=== PATIENT | female | born 1960 | race Caucasian/White ===

== ENCOUNTER 2020-09-07 11:11 | Outpatient (CLI) | payer BC, SELFPAY ==
--- NOTE | ~2020-09-07 | XR_ITS ---
XR hip LT min 2V 09/07/2020 11:36 Indication: Left hip pain Procedure: 3 views left hip Comparison: No prior studies for comparison. Findings: There is moderate osteoarthritis of the left hip. No fracture or traumatic malalignment. No significant soft tissue abnormality. No foreign bodies. Pelvic structures are unremarkable. Impression: 1: Moderate osteoarthritis of the left hip. Reviewed, dictated and finalized at location B. [employer]INE[employer] Impression: 1: Moderate osteoarthritis of the left hip.
[2020-09-07 11:43] LABS: Basophils Absolute Auto 0.1 K/mm3 (0.0-0.1); Basophils Percent Auto 1.3 % (0.2-1.2); Eosinophils Absolute Auto 0.2 K/mm3 (0-0.3); Eosinophils Percent Auto 3.9 % (0-4.4); Hematocrit 45.4 % (37.0-47.0); Immature Granulocyte Absolute 0.01 K/mm3 (0.00-0.031); Immature Granulocyte Percent A 0.2 % (0-0.5); Lymphocytes Percent Auto 52.2 % (18.3-44.2); Mean Corpuscular Hemoglobin 29.9 pg (26-34); Mean Corpuscular Volume 90.6 fl (80-100); Mean Platelet Volume 10.2 fl (7.4-10.4); Monocytes Absolute Auto 0.3 K/mm3 (0.1-0.6); Monocytes Percent Auto 5.4 % (2.6-8.5); Platelet Count Result 237 k/mm3 (150-375); Red Blood Count 5.01 M/mm3 (4.2-5.4); Red Cell Distribution Width 11.9 % (11.5-14.5); White Blood Count 5.4 K/mm3 (4.5-10.0)
[2020-09-07 11:55] LABS: Alanine Aminotransferase 18 U/L (4-35); Albumin Level 4.2 g/dL (3.5-5.1); Alkaline Phosphatase 92 U/L (38-126); Anion Gap 8 mmol/L (8-16); Aspartate Amino Transferase 22 U/L (14-36); Bilirubin,Total 0.8 mg/dL (0.2-1.3); Blood Urea Nitrogen 11 mg/dL (7-17); Calcium 9.7 mg/dL (8.4-10.2); Carbon Dioxide 30 mmol/L (22-30); Chloride 100 mmol/L (98-107); Cholesterol 206 mg/dL (0-200); Estimated Glomerular Filt Rate > 60; Glucose 275 mg/dL (65-105); HDL Direct 65 mg/dL; Potassium 3.9 mmol/L (3.4-5.0); Sodium 138 mmol/L (137-145); Triglycerides 195 mg/dL (<150)
[2020-09-07 12:06] LABS: LDL Cholesterol Direct 117 mg/dL
[2020-09-07 12:34] LABS: Vitamin D 25 Hydroxy 17.7 ng/mL
[2020-09-07 13:39] LABS: Hemoglobin A1C 10.6 % (<5.7)
== END 2020-09-07 11:12 | disposition home or self-care (01) ==
PROVIDERS: PCP Internal Medicine; Visit Provider Clinical Nurse Specialist
DX: Z13.220 Encounter for screening for lipoid disorders (principal); Z13.228 Encounter for screening for other metabolic disorders; R53.83 Other fatigue; E55.9 Vitamin D deficiency, unspecified; M16.12 Unilateral primary osteoarthritis, left hip; Z51.81 Encounter for therapeutic drug level monitoring; Z79.899 Other long term (current) drug therapy
CPT/HCPCS: 36415; 73502; 80053; 80061; 82306; 83036; 84443; 85025

== ENCOUNTER 2020-09-27 12:58 | Outpatient (CLI) | payer BC, SELFPAY ==
--- NOTE | ~2020-09-27 | XR_ITS ---
EXAMINATION: XR lg joint inject/asp w image DATE: 09/27/2020 13:46 INDICATION: Left hip arthritis. TECHNIQUE: A time-out was performed to verify the patient's name, date of , and procedure to b e performed. The procedure including the risks, benefits, and alternatives was discussed with the pat ient. Risks discussed included bleeding and infection. The patient understood the risks and agreed to proceed. The skin overlying the left hip joint was prepped and draped in usual sterile fashion. An esthetic was administered with 1% lidocaine subcutaneously. A 22 G needle was advanced under fluoros copic guidance into the joint. Injection of 1 mL of Omnipaque 240 confirmed intra-articular position of the needle. Subsequently, injectate consisting of 2 mL 0.5% bupivacaine and 1 mL 80 mg/mL Depo-M edrol was instilled. The needle was removed and the entry site was cleaned and dressed. There were no immediate complications. Fluoroscopy exposure time was 0.1 minutes. The total number of images was 2. FINDINGS: Real-time fluoroscopy demonstrates the needle in the left hip joint. Patient's pain prior t o procedure:02/02. Patient's pain following the procedure: 11/03. IMPRESSION: 1. Fluoroscopy guided left hip joint injection of local anesthetic and steroid with decrease in the p atient's presenting pain. Reviewed, dictated and finalized at location A. [employer]CTION SUPERINTENDENT IMPRESSION: 1. Fluoroscopy guided left hip joint injection of local anesthetic and steroid with decrease in the patient's presenting pain.
== END 2020-09-27 12:59 | disposition home or self-care (01) ==
PROVIDERS: PCP Internal Medicine; Visit Provider Nurse Practitioner Family
DX: M16.12 Unilateral primary osteoarthritis, left hip (principal)
CPT/HCPCS: 20610; 77002; J1040; Q9966

== ENCOUNTER 2020-11-07 23:13 | Emergency (ER) | payer BC, SELFPAY ==
--- NOTE | ~2020-11-07 | XR_ITS ---
EXAMINATION: XR knee RT min 4V EXAM DATE: 11/08/2020 01:10 INDICATION: No known recent injury provided at this time. Pain of the right knee, symptoms 3 days. TECHNIQUE: Right knee frontal, crosstable lateral, orthogonal oblique projections for interpretation . There is no prior study for comparison. FINDINGS: No evidence osteochondral defect or joint body in the right knee joint. There are no acut e fractures or dislocations identified. There is no subcutaneous gas. There is small joint effusion . There are no radiopaque foreign bodies. There is mild to moderate primary osteoarthritis. IMPRESSION: 1. Mild to moderate osteoarthritis. 2. Small joint effusion. Reviewed, dictated and finalized at location A.
[2020-11-08 00:05] VITALS: BP 147/89; PULSE 97; RESP 18; TEMP 36.6; O2SAT 99
--- NOTE | 2020-11-08 00:11 | PC.NURSE ---
Pt presents to ED with complaint right knee pain. Pt states she was sleeping on couch and woke to go to bed and was unable to bear weight. Pt states she is due for a left hip replacement and is concerned that maybe that has something to do with her knee. Pt rates pain 10/10 and states she has been taking tylenol Q6 with no relief. Pt states pain increases with ambulation and attempts to bear weight. Pt denies any fall or injury prior to pain onset. Pt noted to be alert and oriented x4. Resting on cart in its lowest position with call button and personal items within reach.
--- NOTE | 2020-11-08 00:25 | PC.NURSE ---
Pt to and from radiology via cart. Moderate swelling noted to right knee. Pt complains of difficulty bending at knee. Extremity elevated on pillow and pt provided ice pack. Call button and personal items within reach. Pt advised to press for assistance.
--- NOTE | 2020-11-08 01:04 | ED.LOWEXIN ---
HPI - Extremity Injury (Lower) General Chief Complaint: Extremity Injury, Lower Stated Complaint: R Knee Pain Time Seen by Provider: 11/08/20 00:59 Source: patient Mode of arrival: ambulatory Limitations: no limitations History of Present Illness HPI Narrative: Patient is a 60-year-old female who presents complaining of right knee pain. Patient reports working in garden on Thursday and shopping on Thursday and the pain starting Thursday afternoon. Patient denies known injury, however, she reports she could have injured during either activity. She reports a history of right hip pain that she is planning surgery for. She denies problems with right knee in the past. Patient reports taking [id number] medications with limited pain relief. MD complaint: knee injury Related Data Home Medications Medication Instructions Recorded Confirmed cider tablet PO 09/04/20 09/13/20 [id number]-Ju-[id number]-tea 500 mg-100 mcg-300 mg-60 mg tab multivitamin with minerals 1 tablet PO DAILY 09/04/20 09/13/20 Allergies Allergy/AdvReac Type Severity Reaction Status Date / Time latex Allergy Unknown Unknown Verified 11/08/20 00:07 fentanyl Allergy Unknown Verified 11/08/20 00:07 Penicillins Allergy Unknown Verified 11/08/20 00:07 Review of Systems Review of Systems: Narrative: CONSTITUTIONAL: Denies fever, chills, or sweats. EYES: Denies visual changes, redness, or discharge. ENT: Denies rhinorrhea, congestion, sore throat, or otalgia. CARDIOVASCULAR: Denies chest pain, palpitations, or edema. RESPIRATORY: Denies cough or dyspnea. GASTROINTESTINAL: Denies abdominal pain, nausea, vomiting, or diarrhea. GENITOURINARY: Denies dysuria or hematuria. SKIN: Denies rash or itching. MUSCULOSKELETAL: Right knee pain NEUROLOGIC: Denies headache, numbness, dizziness, or weakness. PSYCHIATRIC: Denies anxiety or depression. [facility] Past Medical History Medical History Allergies Degenerative joint disease (DJD) of hip Elevated blood pressure reading Encounter for screening mammogram for breast cancer Essential (primary) hypertension Fatigue Screening for lipoid disorders Screening for metabolic disorder Screening for osteoporosis Type 2 diabetes mellitus Vitamin D deficiency Surgical History Surgical History History of arthroscopy of left knee History of section complicating Family History Family History Father Cancer Diabetes mellitus Hypertension Mother Diabetes mellitus Hypertension Depression Anxiety Sibling Diabetes mellitus Hypertension Social History Social History Smoking status: Never smoker Alcohol intake: never Substance use: never Substance use type: does not use Gender identity (if verbalized by the patient): Female Comments At the time of signature, I have reviewed and agree with nursing past medical, surgical, social, and family history unless otherwise noted. Please see nursing chart for further information. There is no relevant family history pertinent to the presenting complaint. Exam Narrative: Exam Narrative: GENERAL: Well-appearing, well-nourished, and in no acute distress. HEAD: Normocephalic, atraumatic. EYES: EOMI. No redness or drainage. Conjunctiva are normal. ENT: Mucous membranes pink and moist. CHEST: No respiratory distress. Clear to auscultation. HEART: Regular rate and rhythm. MUSCULOSKELETAL: Right knee tenderness with palpation, edema, erythema and warmth noted. Limited range of motion EXTREMITIES: Normal range of motion. No edema. SKIN: Warm, dry, no rash. NEURO: No focal deficits. Alert and oriented x3. Gait steady. PSYCH: Normal affect. No signs of depression or anxiety. Course Vital Signs Vital signs: Vital Signs
--- NOTE | 2020-11-08 01:30 | PC.NURSE ---
Pt resting on cart with no complaints or concerns voiced. Pt advised to press call button for assistance.
[2020-11-08] MEDS: KETOROLAC 30 MG/ML VIAL (*BKC) IM (01:44)
[2020-11-08 01:47] VITALS: BP 153/87; PULSE 87; RESP 18; TEMP 36.8; O2SAT 99
--- NOTE | 2020-11-08 01:50 | PC.NURSE ---
Knee immobilizer applied to right knee. Pt advised that she should rest, ice and elevate extremity and wear immobilizer while at rest.
== END 2020-11-08 01:48 | disposition home or self-care (01) ==
PROVIDERS: Emergency Provider Nurse Practitioner; PCP Internal Medicine
DX: M25.561 Pain in right knee (principal); M16.10 Unilateral primary osteoarthritis, unspecified hip; I10 Essential (primary) hypertension; E11.9 Type 2 diabetes mellitus without complications; E55.9 Vitamin D deficiency, unspecified; M17.11 Unilateral primary osteoarthritis, right knee
CPT/HCPCS: 73564; 96372; 99283; J1885

== ENCOUNTER 2020-11-12 18:46 | Emergency (ER) | payer BC, SELFPAY ==
[2020-11-12 19:01] VITALS: BP 150/90; PULSE 105; RESP 12; TEMP 37.8; O2SAT 97
--- NOTE | 2020-11-12 19:19 | ED.EXTPRO ---
HPI - Extremity Problem General Chief complaint: Extremity Problem,Nontraumatic Stated complaint: Right Leg Pain Time Seen by Provider: 11/12/20 19:10 Source: patient and RN notes reviewed Mode of arrival: ambulatory Limitations: no limitations History of Present Illness HPI Narrative: 60-year-old female presents with concern for right leg pain, swelling. Reports 4-day history of pain that started with swelling and pain in the knee, behind the knee. Reports the pain and swelling has progressed down the lower leg, ankle, foot. Reports she has been elevating, using ice, ibuprofen with no relief. Reports she was prescribed a knee immobilizer in the emergency room which she has been unable to use due to the generalized swelling. MD Complaint: extremity swelling Related Data Home Medications Medication Instructions Recorded Confirmed dulaglutide [Trulicity] 1 mg SUBCUT WEEKLY 11/12/20 11/12/20 lisinopril 1 mg PO DAILY 11/12/20 11/12/20 metformin 1 mg PO BID 11/12/20 11/12/20 Allergies Allergy/AdvReac Type Severity Reaction Status Date / Time latex Allergy Unknown Swelling Verified 11/12/20 19:22 fentanyl Allergy Other Verified 11/12/20 19:22 Penicillins Allergy Rash Verified 11/12/20 19:22 Review of Systems Review of Systems: Narrative: CONSTITUTIONAL: Denies malaise, chills, sweats, or fever. CARDIOVASCULAR: Denies chest pain, palpitations. Reports right lower extremity edema. RESPIRATORY: Denies cough or dyspnea. SKIN: Denies abrasions, lacerations MUSCULOSKELETAL: Reports right lower extremity edema and pain NEUROLOGIC: Denies numbness, weakness All systems reviewed & are unremarkable except as noted in HPI and below PMFSH Past Medical History Medical History Allergies Degenerative joint disease (DJD) of hip Elevated blood pressure reading Encounter for screening mammogram for breast cancer Essential (primary) hypertension Fatigue Screening for lipoid disorders Screening for metabolic disorder Screening for osteoporosis Type 2 diabetes mellitus Vitamin D deficiency Surgical History Surgical History History of arthroscopy of left knee History of section complicating Family History Family History Father Cancer Diabetes mellitus Hypertension Mother Diabetes mellitus Hypertension Depression Anxiety Sibling Diabetes mellitus Hypertension Social History Social History Smoking status: Never smoker Alcohol intake: never Substance use: never Substance use type: does not use Gender identity (if verbalized by the patient): Female Comments At time of signature, agree with nursing past medical, surgical, social and family history. There is no relevant family history pertinent to the presenting complaint Exam Narrative: Exam Narrative: GENERAL: Well-appearing, well-nourished, and in no acute distress. HEAD: Normocephalic EYES: PERRLA, conjunctivae clear ENT: Nares clear. Mucous membranes moist. NECK: Supple. CHEST: No respiratory distress. Speaks in full sentences. HEART: Regular rate and rhythm. No murmur heard. Normal left lower extremity peripheral pulse, diminished right lower extremity pedal pulse EXTREMITIES: Right lower extremity has decreased range of motion, 1+ pitting edema from the knee to the foot, excluding the toes, right knee measurement 39.5 cm, left knee measurement 35 cm, right calf measurement 37.5 cm, left calf measurement 34 cm. Normal sensation. SKIN: Warm, dry, no rash. NEURO: Alert and oriented x3. PSYCH: Normal mood and affect Course Course Emergency Course: Patient is aware of, understands and agrees to be seen in the emergency department. Patient agrees to proceed directly to the emergency department. Portions of this
== END 2020-11-12 19:45 | disposition short-term general hospital (02) ==
PROVIDERS: Emergency Provider Nurse Practitioner; PCP Internal Medicine
DX: R60.0 Localized edema (principal); M16.10 Unilateral primary osteoarthritis, unspecified hip; I10 Essential (primary) hypertension; E11.9 Type 2 diabetes mellitus without complications
CPT/HCPCS: 99212; G0463

== ENCOUNTER 2020-12-19 14:33 | Outpatient (CLI) | payer BC, SELFPAY ==
[2020-12-19 15:31] LABS: Anion Gap 6 mmol/L (8-16); Blood Urea Nitrogen 13 mg/dL (7-17); Carbon Dioxide 31 mmol/L (22-30); Chloride 104 mmol/L (98-107); Estimated Glomerular Filt Rate > 60; Glucose 155 mg/dL (65-105); Sodium 141 mmol/L (137-145)
[2020-12-19 16:44] LABS: Microalbumin Urine Random 23.6 mg/L (0-16.7)
[2020-12-19 16:45] LABS: Creatinine Urine 73.7 mg/dL
== END 2020-12-19 14:34 | disposition home or self-care (01) ==
PROVIDERS: PCP Internal Medicine; Visit Provider Clinical Nurse Specialist
DX: E11.69 Type 2 diabetes mellitus with other specified complication (principal)
CPT/HCPCS: 36415; 80048; 82043; 83036

== ENCOUNTER 2021-03-19 10:41 | Outpatient (CLI) | payer BC, SELFPAY ==
[2021-03-19 11:44] LABS: Vitamin D 25 Hydroxy 42.8 ng/mL
[2021-03-19 12:13] LABS: Hemoglobin A1C 6.9 % (<5.7)
== END 2021-03-19 10:42 | disposition home or self-care (01) ==
PROVIDERS: PCP Internal Medicine; Visit Provider Clinical Nurse Specialist
DX: E55.9 Vitamin D deficiency, unspecified (principal); E11.9 Type 2 diabetes mellitus without complications
CPT/HCPCS: 36415; 82306; 83036

== ENCOUNTER 2021-05-24 07:48 | Outpatient (CLI) | payer BC, SELFPAY ==
[2021-05-24 09:33] LABS: Basophils Absolute Auto 0.1 K/mm3 (0.0-0.1); Basophils Percent Auto 1.7 % (0.2-1.2); Eosinophils Absolute Auto 0.2 K/mm3 (0-0.3); Eosinophils Percent Auto 4.7 % (0-4.4); Hematocrit 39.6 % (37.0-47.0); Immature Granulocyte Absolute 0.01 K/mm3 (0.00-0.031); Immature Granulocyte Percent A 0.2 % (0-0.5); Lymphocytes Absolute Auto 1.76 K/mm3 (0.9-3.2); Lymphocytes Percent Auto 41.7 % (18.3-44.2); Mean Corpuscular HGB Conc 32.8 g/dl (32-36); Mean Corpuscular Hemoglobin 30.7 pg (26-34); Mean Corpuscular Volume 93.4 fl (80-100); Monocytes Absolute Auto 0.2 K/mm3 (0.1-0.6); Monocytes Percent Auto 5.5 % (2.6-8.5); Neutrophils Percent Auto 46.2 % (45.5-73.1); Platelet Count Result 230 k/mm3 (150-375); Red Blood Count 4.24 M/mm3 (4.2-5.4); Red Cell Distribution Width 12.9 % (11.5-14.5); White Blood Count 4.2 K/mm3 (4.5-10.0)
[2021-05-24 09:40] LABS: Urine Cotinine NEGATIVE
[2021-05-24 09:42] LABS: Add Urine Microscopic? YES; Appearance Urine Cloudy (Clear); Bilirubin Urine Negative (Negative); Color Urine Yellow (Yellow); Glucose Urine UA 3+ mg/dL (Negative); Ketones Urine Negative (Negative); Leukocyte Esterase Ur 2+ LEU/UL (Negative); Mucus Urine Rare /lpf; Nitrate Urine Negative (Negative); Protein Urine Negative (Negative); Specific Grav Ur 1.023 (1.001-1.035); Squamous Epithelial Cell Urine Occasional /hpf (Few); Urobilinogen Urine Negative mg/dL (<2.0)
[2021-05-24 09:44] LABS: Albumin Level 4.4 g/dL (3.5-5.1); Anion Gap 8 mmol/L (8-16); Blood Urea Nitrogen 18 mg/dL (7-17); Calcium 10.1 mg/dL (8.4-10.2); Carbon Dioxide 28 mmol/L (22-30); Chloride 101 mmol/L (98-107); Estimated Glomerular Filt Rate > 60; Glucose 204 mg/dL (65-110); Potassium 4.4 mmol/L (3.4-5.0); Sodium 137 mmol/L (137-145)
[2021-05-24 09:45] LABS: INR 0.8; Partial Thromboplastin Time 24.8 SECONDS (22.3-36.8); Prothrombin Time 11.5 Seconds (11.1-14.7)
[2021-05-24 10:44] LABS: Blood Urine Negative (Negative)
== END 2021-05-24 07:49 | disposition home or self-care (01) ==
LOC: ANHSURGERY 07:53
PROVIDERS: PCP Internal Medicine; Visit Provider Orthopaedic Surgery
DX: Z01.818 Encounter for other preprocedural examination (principal); M16.12 Unilateral primary osteoarthritis, left hip
CPT/HCPCS: 80048; 80307; 81001; 82040; 85025; 85610; 85730; 86850; 86900; 86901; 87077; 87081; 87086; 87186

== ENCOUNTER → 2021-06-01 00:18 | Outpatient (CLI) | payer BC, SELFPAY ==
[2021-06-01 17:39] LABS: SARS-CoV-2 RNA PCR Negative
== END ==
PROVIDERS: PCP Internal Medicine; Visit Provider Orthopaedic Surgery
DX: Z01.812 Encounter for preprocedural laboratory examination (principal); Z20.822 Contact with and (suspected) exposure to COVID-19
CPT/HCPCS: C9803; U0003; U0005

== ENCOUNTER 2021-06-05 14:50 | Observation (INO) | payer BC, SELFPAY ==
[2021-05-24 08:15] VITALS: BP 198/90; PULSE 84; RESP 18; TEMP 36.9; O2SAT 97; BMI 30.1
--- NOTE | 2021-06-03 13:49 | WPDANESEPPF ---
Anes - Initial Pre Proc Eval Procedure: Operation Date: 06/04/21 08:30 Proposed Procedures p Left Total Hip Arthroplasty - Tulio Andres MD Date/Time: 06/03/21 13:49 Surgeon: Tulio Andres MD Pre Op Diagnosis: Lt Hip DJD Patient Data Age: 61 Gender: F Height: 1.52 m Weight: 70 kg Last Vital Signs Temp 36.9 C 05/24/21 08:15 Pulse 84 05/24/21 08:15 Resp 18 05/24/21 08:15 BP 198/90 H 05/24/21 08:15 Pulse Ox 97 05/24/21 08:15 Allergies Allergy/AdvReac Type Severity Reaction Status Date / Time latex Allergy Intermediate REDNESS, Verified 06/04/21 07:11 RASH Penicillins AdvReac Intermediate DECREASED Verified 06/04/21 07:11 HEART RATE fentanyl AdvReac Mild DIZZINESS, Verified 06/04/21 07:11 HEADACHE Home Medications Medication Instructions Recorded Confirmed Type metformin 1,000 mg tablet 1,000 mg PO BID #90 tablet 03/25/21 06/04/21 Rx ibuprofen [Advil] 200 mg PO BID PRN 05/24/21 06/04/21 History levofloxacin 500 mg tablet 500 mg PO DAILY #10 tablet 05/27/21 06/04/21 Rx lisinopril 10 mg tablet 10 mg PO DAILY #90 tablet 06/03/21 06/04/21 Rx Patient hx anesthesia problems: none Family hx anesthesia problems: none Results Review: All pre-operative results and documents have been reviewed as part of the pre-operative evaluation. [facility] Past Medical History Medical History (Updated 06/03/21 @ 13:50 by Pino Goins MD) Allergies Degenerative joint disease (DJD) of hip Degenerative joint disease of left hip Elevated blood pressure reading Encounter for screening mammogram for breast cancer Essential (primary) hypertension Fatigue Nausea Obesity Osteoarthritis of hip Right knee DJD Screening for lipoid disorders Screening for metabolic disorder Screening for osteoporosis Type 2 diabetes mellitus Vitamin D deficiency Surgical History Surgical History History of arthroscopy of left knee History of section complicating Family History Family History Father Cancer Diabetes mellitus Hypertension Mother Diabetes mellitus Hypertension Depression Anxiety Sibling Diabetes mellitus Hypertension Social History Social History Alcohol intake: never Substance use: never Substance use type: does not use Living arrangements: with family Additional living arrangements comments: [facility] Gender identity (if verbalized by the patient): Female Spiritual care concerns: No Anes - Eval Final PreProcedure Day of Procedure 06/03/21 13:49 Patient weight: overweight Heart: regular rate and rhythm Lungs: clear to auscultation and normal air movement Airway: Mallampati scale class II Neurological: alert and oriented Last oral intake: >/= 8 hours ASA classification: III Emergent: no Anesthetic plan: proceed Anesthesia type and monitoring: general LMA and ETT Results Review: All pre-operative results and documents have been reviewed as part of the pre-operative evaluation. Informed Consent: The patient's anesthetic plan and its attendant risks and benefits were discussed with the patient/family/POA. Questions were solicited and answers provided to the satisfaction of the patient/family/POA.
[2021-06-04] VITALS (15 sets, daily range): BP systolic 99–180; BP diastolic 51–86; PULSE 60–115; RESP 12–20; TEMP 36.1–36.9; O2SAT 98–100
[2021-06-04] MEDS: ACETAMINOPHEN 500 MG TABLET 1000 MG PO (07:18)
[2021-06-04] MEDS: LACTATED RINGERS 1,000 ML 30 ML IV CONT ×2 (07:31→11:36)
[2021-06-04 07:37] LABS: Glucose Point of Care 148 mg/dl (65-105)
[2021-06-04] MEDS: TRANEXAMIC ACID 1,000MG/ISO100 1,000 MG/100 ML BAG 200 MG IVPB (08:13)
--- NOTE | 2021-06-04 08:25 | WPDHPUPDATE1 ---
History and Physical Update Update Date/Time: 06/04/21 08:25 History and Physical has been reviewed, including an updated exam of the patient. There are NO changes in the patient's condition. Risks, benefits, and alternatives have been discussed and questions answered. Patient agrees to proceed with procedure.
[2021-06-04] MEDS: ceFAZolin 2 GM/D5W 50 ML 2 GM/50 ML BAG IVPB ×2 (08:35→16:40)
[2021-06-04] MEDS: TRANEXAMIC ACID 1,000 MG/10 ML AMPUL 1000 MG IV PUSH (10:40)
[2021-06-04 11:57] LABS: Glucose Point of Care 133 mg/dl (65-105)
--- NOTE | 2021-06-04 12:19 | W.PM.PROC2 ---
Procedure Note - Detailed Date of Procedure 06/04/21 Pre-op Diagnosis Lt Hip DJD Post-op Diagnosis same Procedure Performed L BLAIR Surgeon Tulio Andres MD Anesthesia general Description of Procedure THE PATIENT WAS TAKEN TO THE OPERATING ROOM IN STABLE CONDITION AND WAS PLACED IN THE LATERAL DECUBITUS AND THE LEFT LOWER EXTREMITY WAS PREPPED AND DRAPED IN THE STERILE FASHION. INCISION WAS MADE IN THE POSTERIOR LATERAL SIDE OF THE HIP, DOWN TO THE FASCIA LAYER. THE FASCIA WAS INCISED. THE HIP WAS EXPOSED. THE SHORT EXTERNAL ROTATORS WERE EXPOSED. THE SCIATIC NERVE WAS IDENTIFIED. INCISION WAS MADE THROUGH THE SHORT EXTERNAL ROTATORS AND THE CAPSULE OF THE HIP JOINT. THE HIP WAS DISLOCATED. AN OSTEOTOMY WAS MADE TO THE FEMORAL NECK ABOUT 1 CM PROXIMAL TO THE LESSER TROCHANTER. THE ACETABULUM WAS EXPOSED. THERE WAS SEVERE DJD SEEN. BEGINNING WITH A 44 REAMER THE ACETABULUM WAS REAMED TO 47 MM. A 47 MM TRIAL WAS PLACED IN 35 DEG OF ABDUCTION AND ANTEVERSION WAS IN ALIGNMENT WITH THE TRANS ACETABULAR LIGAMENT. THE FIT WAS EXCELLENT. THE TRIAL WAS REMOVED. A 48 MM BIOMET G7 COMPONENT WAS THEN TAPPED IN TO PLACE IN 35 DEG OF ABDUCTION AND ANTEVERSION IN ALIGNMENT WITH THE TRANSVERSE ACETABULAR LIGAMENT. THE FIT WAS EXCELLENT. THE ACETABULAR LINER WAS PLACED AND CHECKED FOR STABILITY. NEXT THE FEMUR WAS PREPARED WITH INITIAL CANAL FINDER THEN SEQUENTIAL BROACHING WITH A TAPERLOC HIP SYSTEM, UNTIL A 5 BROACH FIT WELL IN 15 OF ANTEVERSION. A -3 STANDARD OFFSET NECK WITH 32 MM HEAD TRIAL WAS PLACED. THE SHUCK TEST WAS EXCELLENT AND THE STABILITY IN FLEXION AND ROTATION WAS EXCELLENT. LEG LENGTHS WERE GROSSLY EQUAL. TRIALS WERE REMOVED. A BIOMET TAPERLOC 5 STEM WAS PLACED WITH A STANDARD OFFSET NECK THE FIT WAS EXCELLENT IN 15 DEG OF ANTEVERSION. A -3 CERAMIC 32 MM FEMORAL CERAMIC HEAD WAS PLACED. THE HIP WAS TRIALED AND THE STABILITY WAS EXCELLENT WERE THE LEG LENGTHS AND THE SHUCK TEST. THE WOUND WAS IRRIGATED WITH STERILE BETADINE AND WATER FOR 3 MIN. THEN WASHED AGAIN. THE CAPSULE AND THE EXTERNAL ROTATORS WERE APPROXIMATED WITH NUMBER 1 VICRYL. THE FASCIA WITH No 2 QUIL AND THE SUB CUTANEOUS LAYER WITH 2-0 ABSORBABLE SUTURE WITH A RUNNING 3-0 SUBCUTICULAR LAYER WELL. DERMABOND WAS PLACED AND STERILE DRESSING WAS APPLIED. PATIENT WAS PLACED BACK ON TO THE SUPINE POSITION AND WAS EXTUBATED Estimated Blood Loss 400 Urine Output -475.0 Complications No immediate complications Condition stable Disposition PACU
--- NOTE | 2021-06-04 12:57 | SUR.PHASEI ---
REPORT TO MECCA ZAPATA.
--- NOTE | 2021-06-04 14:16 | PC.NURSE ---
This patient, Sarahi Enciso, was admitted to 2 Medical Room 259-01. Patient/family oriented to hospital policies and general routines including ID bracelet, bed and alarms, visiting hours, pain management, procedures, bathroom and other care routines, personal items, smoking policy, room service/diet, and visiting hours. Information on how to activate the Rapid Response Team has been discussed. Patient/Family are encouraged to report perceived risks to care and to ask questions if they do not understand what they are told or what they should do.
[2021-06-04] MEDS: ACETAMINOPHEN 325 MG TABLET 650 MG PO (14:30)
--- NOTE | 2021-06-04 14:40 | PCOTNOTE ---
Attempted OT evaluation, per RN hold due to spinal, unable to feel LE at this time. Will attempt in AM.
--- NOTE | 2021-06-04 14:43 | PCPTNOTE ---
Attempted PT evaluation, per RN hold due to spinal, unable to feel LE at this time. Will attempt in AM.
[2021-06-04 16:36] LABS: Glucose Point of Care 133 mg/dl (65-105)
[2021-06-04] MEDS: DOCUSATE SODIUM 100 MG CAPSULE PO (16:39)
[2021-06-04] MEDS: metFORMIN HCL 500 MG TABLET 1000 MG PO (16:39)
[2021-06-04] MEDS: HYDROcodone/acetaminophen (*CRX) 7.5-325 MG TABLET 1 TAB PO (18:25)
[2021-06-04] MEDS: FAMOTIDINE 20 MG TABLET PO (21:20)
[2021-06-04 21:39] LABS: Glucose Point of Care 184 mg/dl (65-105)
[2021-06-04] MEDS: MORPHINE SULFATE (*CRX) 4 MG/ML INJ 3 MG IV PUSH (22:30)
[2021-06-05] VITALS (7 sets, daily range): BP systolic 107–152; BP diastolic 52–80; PULSE 80–100; RESP 16–18; TEMP 36–37.6; O2SAT 95–98
--- NOTE | ~2021-06-05 | XR_ITS ---
EXAMINATION: XR hip LT 1V DATE: 06/04/2021 11:49 INDICATION: Left hip arthroplasty. Postop. TECHNIQUE: A single view of left hip was obtained. COMPARISON: Left hip radiographs 02/21/2021 FINDINGS: There is a total left hip arthroplasty in near-anatomic alignment. No fracture. There is ga s in the soft tissues, consistent with recent surgery. IMPRESSION: 1. Total left hip arthroplasty in near-anatomic alignment. Reviewed, dictated and finalized at location A. NG SUPERVISOR
[2021-06-05] MEDS: ceFAZolin 2 GM/D5W 50 ML 2 GM/50 ML BAG IVPB ×2 (00:10→08:54)
[2021-06-05] MEDS: ONDANSETRON INJ 4 MG/2 ML VIAL IV PUSH (01:03)
[2021-06-05 05:58] LABS: Basophils Percent Auto 0.5 % (0.2-1.2); Eosinophils Percent Auto 0.5 % (0-4.4); Hematocrit 32.3 % (37.0-47.0); Hemoglobin 10.9 g/dL (12.0-15.0); Immature Granulocyte Absolute 0.03 K/mm3 (0.00-0.031); Immature Granulocyte Percent A 0.4 % (0-0.5); Lymphocytes Absolute Auto 1.83 K/mm3 (0.9-3.2); Lymphocytes Percent Auto 25.1 % (18.3-44.2); Mean Corpuscular HGB Conc 33.7 g/dl (32-36); Mean Corpuscular Hemoglobin 30.8 pg (26-34); Mean Corpuscular Volume 91.2 fl (80-100); Mean Platelet Volume 10.3 fl (7.4-10.4); Monocytes Absolute Auto 0.5 K/mm3 (0.1-0.6); Monocytes Percent Auto 6.7 % (2.6-8.5); Neutrophils Absolute Auto 4.9 K/mm3 (1.3-6.7); Neutrophils Percent Auto 66.8 % (45.5-73.1); Platelet Count Result 203 k/mm3 (150-375); Red Blood Count 3.54 M/mm3 (4.2-5.4); Red Cell Distribution Width 12.6 % (11.5-14.5); White Blood Count 7.3 K/mm3 (4.5-10.0)
[2021-06-05 06:04] LABS: Anion Gap 5 mmol/L (8-16); Blood Urea Nitrogen 11 mg/dL (7-17); Calcium 9.2 mg/dL (8.4-10.2); Carbon Dioxide 27 mmol/L (22-30); Chloride 99 mmol/L (98-107); Estimated CRCL calculation 101 ml/min; Estimated Glomerular Filt Rate > 60; Glucose 209 mg/dL (65-110); Potassium 3.8 mmol/L (3.4-5.0); Sodium 131 mmol/L (137-145)
--- NOTE | 2021-06-05 07:26 | WPDANESPN ---
Anes - Prog Note Post-Op Date/Time: 06/05/21 07:26 Cardiovascular status: normal Respiratory status: normal Airway patency: baseline Mental status: baseline Post-Op hydration status: normal Vital Signs: Last Vital Signs Temp 37.6 C H 06/05/21 05:16 Pulse 96 06/05/21 05:16 Resp 16 06/05/21 05:16 BP 152/65 H 06/05/21 05:16 Pulse Ox 97 06/05/21 05:16 Pain Score (VAS): 3 I/O: Intake & Output 06/04/21 06/04/21 06/05/21 15:59 23:59 07:59 Intake Total 350 290 550 Output Total 600 Balance 350 290 -50 Laboratory Tests 06/05/21 05:27 06/05/21 05:27 06/04/21 06/04/21 06/04/21 07:34 11:55 16:26 WBC RBC Hgb Hct MCV MCH MCHC RDW Plt Count MPV Immature Gran % (Auto) Neut % (Auto) Lymph % (Auto) [place] % (Auto) Eos % (Auto) Baso % (Auto) Lymph # (Auto) [place] # (Auto) Eos # (Auto) Baso # (Auto) Abs Immat Gran (auto) Absolute Neuts (auto) Absolute Nucleated RBC Nucleated RBC % Sodium Potassium Chloride Carbon Dioxide Anion Gap BUN Creatinine Estim Creat Clear Calc Estimated GFR Glucose POC Capillary Glucose 148 H 133 H 133 H Calcium 06/04/21 06/05/21 06/05/21 21:22 05:27 05:27 WBC 7.3 RBC 3.54 L Hgb 10.9 L Hct 32.3 L MCV 91.2 MCH 30.8 MCHC 33.7 RDW 12.6 Plt Count 203 MPV 10.3 Immature Gran % (Auto) 0.4 Neut % (Auto) 66.8 Lymph % (Auto) 25.1 [place] % (Auto) 6.7 Eos % (Auto) 0.5 Baso % (Auto) 0.5 Lymph # (Auto) 1.83 [place] # (Auto) 0.5 Eos # (Auto) 0.0 Baso # (Auto) 0.0 Abs Immat Gran (auto) 0.03 Absolute Neuts (auto) 4.9 Absolute Nucleated RBC 0.0 Nucleated RBC % 0.0 Sodium 131 L Potassium 3.8 Chloride 99 Carbon Dioxide 27 Anion Gap 5 L BUN 11 D Creatinine 0.40 L Estim Creat Clear Calc 101 Estimated GFR > 60 Glucose 209 H POC Capillary Glucose 184 H Calcium 9.2 Post-procedural complaints: none Patient Feedback: Patient satisfied with anesthetic care.
[2021-06-05 08:03] LABS: Glucose Point of Care 195 mg/dl (65-105)
[2021-06-05] MEDS: ASPIRIN 325 MG ENTERIC TABLET 650 MG PO (08:52)
[2021-06-05] MEDS: lisinopriL 10 MG TABLET PO (08:53)
[2021-06-05] MEDS: CELECOXIB 200 MG CAPSULE PO (08:53)
[2021-06-05] MEDS: oxyCODONE HCL (*CRX) 5 MG TAB IR PO (08:53)
[2021-06-05] MEDS: levoFLOXacin 500 MG TABLET PO (08:53)
[2021-06-05] MEDS: metFORMIN HCL 500 MG TABLET 1000 MG PO ×2 (08:53→16:52)
[2021-06-05] MEDS: DOCUSATE SODIUM 100 MG CAPSULE PO ×2 (08:53→16:52)
[2021-06-05] MEDS: FAMOTIDINE 20 MG TABLET PO ×2 (08:53→20:51)
[2021-06-05 12:26] LABS: Glucose Point of Care 194 mg/dl (65-105)
--- NOTE | 2021-06-05 14:21 | PM.PNORT ---
Progress Note: A&P Additional Plan POD 1 DOING WELL WITH SLOW PROGRESS WITH PT. RECOMMEND CONTINUE PT AND REASSESS TOMORROW. Subjective Subjective Date/Time Seen: 06/05/21 14:21 POD 1 WITH SLOW PROGRESS WITH PT. SHE IS IMPROVING HER PAIN CONTROL. NO CALF PAIN NO SOB Exam Extrem: Other: VSS AFEBRILE DRESSING DRY NV INTACT NEG HOMANS SIGN, CALF SOFT NON TENDER Objective Data Vital Signs Vital Signs: Vital Signs - 24 hr 06/04/21 15:15 06/04/21 19:15 06/04/21 21:12 Temperature 36.4 C L 36.4 C 36.9 C Pulse Rate 64 91 85 Respiratory Rate 16 16 16 Blood Pressure 133/56 L 139/80 144/60 H Pulse Oximetry 100 100 98 06/05/21 00:12 06/05/21 05:16 06/05/21 08:00 Temperature 37.5 C 37.6 C H 36.9 C Pulse Rate 92 96 86 Respiratory Rate 16 16 18 Blood Pressure 148/63 H 152/65 H 150/70 H Pulse Oximetry 98 97 97 06/05/21 12:00 Temperature 36.9 C Pulse Rate 93 Respiratory Rate 16 Blood Pressure 133/64 Pulse Oximetry 97 Intake/Output Intake/Output: Intake & Output 06/02/21 06/03/21 06/04/21 06/05/21 23:59 23:59 23:59 23:59 Intake Total 640 1050 Output Total 600 Balance 640 450 Meds/Results Medications: Active Medications Generic Name Dose Route Start Last Admin Trade Name Freq PRN Reason Stop Dose Admin Acetaminophen 650 mg 06/04/21 13:17 06/04/21 14:30 Acetaminophen 325 Mg Tablet PO 650 mg Q6H PRN Administration Mild Pain (1-3) or Fever Hydrocodone Bitart/Acetaminophen 1 tab 06/04/21 13:17 06/04/21 18:25 Hydrocodone/Acetaminophen (*Crx) 7.5-325 Mg Tablet PO 1 tab Q3H PRN Administration Pain Rated 4-6 Al Hydrox/Mg Hydrox/Simethicone 30 ml 06/04/21 13:17 Mag Hydrox/Al Hydrox/Simeth 30 Ml Udc PO Q6H PRN Indigestion Aspirin 650 mg 06/05/21 09:00 06/05/21 08:52 Aspirin 325 Mg Enteric Tablet PO 650 mg DAILY JESUS Administration Celecoxib 200 mg 06/05/21 09:00 06/05/21 08:53 Celecoxib 200 Mg Capsule PO 200 mg DAILY JESUS Administration Diazepam 5 mg 06/04/21 13:17 Diazepam (*Crx) 5 Mg Tablet PO Q6H PRN Anxiety/Muscle Spasm Docusate Sodium 100 mg 06/04/21 17:00 06/05/21 08:53 Docusate Sodium 100 Mg Capsule PO 100 mg BID JESUS Administration Famotidine 20 mg 06/04/21 21:00 06/05/21 08:53 Famotidine 20 Mg Tablet PO 20 mg Q12HR JESUS Administration Fentanyl Citrate 25 mcg 06/03/21 13:47 Fentanyl Citrate Inj (*Crx) 100 Mcg/2 Ml Vial IV PUSH Q2M PRN Pain Hydroxyzine HCl 50 mg 06/04/21 13:17 Hydroxyzine Hcl 25 Mg Tablet PO Q4H PRN Itching Levofloxacin 500 mg 06/05/21 09:00 06/05/21 08:53 Levofloxacin 500 Mg Tablet PO 500 mg DAILY JESUS Administration Lisinopril 10 mg 06/05/21 09:00 06/05/21 08:53 Lisinopril 10 Mg Tablet PO 10 mg DAILY JESUS Administration Magnesium Hydroxide 30 ml 06/04/21 13:17 Magnesium Hydroxide Susp 30 Ml Udc PO BID PRN Constipation Metformin HCl 1,000 mg 06/04/21 17:00 06/05/21 08:53 Metformin Hcl 500 Mg Tablet PO 1,000 mg BID JESUS Administration Morphine Sulfate 3 mg 06/04/21 13:17 06/04/21 22:30 Morphine Sulfate (*Crx) 4 Mg/Ml Inj IV PUSH 3 mg Q3H PRN Administration Pain Rated 7-10 Naloxone HCl 0.1 mg 06/04/21 13:17 Naloxone Hcl 0.4 Mg/Ml Vial IV PUSH Q2M PRN Opiate Reversal Ondansetron HCl 4 mg 06/03/21 13:47 06/05/21 01:03 Ondansetron Inj 4 Mg/2 Ml Vial IV PUSH 4 mg ONCE PRN Administration Nausea Ondansetron HCl 4 mg 06/04/21 13:17 Ondansetron Inj 4 Mg/2 Ml Vial IV PUSH Q4H PRN Nausea And Vomiting Oxycodone HCl 5 mg 06/03/21 13:47 06/05/21 08:53 Oxycodone Hcl (*Crx) 5 Mg Tab Ir PO 5 mg ONCE PRN Administration Pain Radiology Results: ITS Impressions Hip X-Ray 06/04/21 11:50 IMPRESSION: 1. Total left hip arthroplasty in near-anatomic alignment. Labs Labs: Laboratory Results - last 24 hr 1
[2021-06-05 17:05] LABS: Glucose Point of Care 182 mg/dl (65-105)
[2021-06-05] MEDS: HYDROcodone/acetaminophen (*CRX) 7.5-325 MG TABLET 1 TAB PO (20:53)
[2021-06-05 21:34] LABS: Glucose Point of Care 186 mg/dl (65-105)
[2021-06-06 03:40] VITALS: BP 110/64; PULSE 93; RESP 17; TEMP 36.4; O2SAT 100
[2021-06-06] MEDS: ONDANSETRON INJ 4 MG/2 ML VIAL IV PUSH (07:53)
[2021-06-06 08:02] LABS: Glucose Point of Care 187 mg/dl (65-105)
[2021-06-06] MEDS: FAMOTIDINE 20 MG TABLET PO ×2 (09:09→21:41)
[2021-06-06] MEDS: metFORMIN HCL 500 MG TABLET 1000 MG PO ×2 (09:09→16:58)
[2021-06-06] MEDS: ASPIRIN 325 MG ENTERIC TABLET 650 MG PO (09:09)
[2021-06-06] MEDS: levoFLOXacin 500 MG TABLET PO (09:10)
[2021-06-06] MEDS: lisinopriL 10 MG TABLET PO (09:10)
[2021-06-06] MEDS: CELECOXIB 200 MG CAPSULE PO (09:10)
[2021-06-06] MEDS: DOCUSATE SODIUM 100 MG CAPSULE PO ×2 (09:10→16:58)
--- NOTE | 2021-06-06 09:17 | PM.PNORT ---
Progress Note: A&P Assessment and Plan (1) S/P total hip arthroplasty: Qualifiers: Laterality: left Qualified Code(s): Z96.642 - Presence of left artificial hip joint Code(s): Z96.649 - Presence of unspecified artificial hip joint Status: Acute Assessment and Plan: POD #1: Left BLAIR Continue PT/OT. WBAT. Walker. HIGH FALL RISK. Continued slow progress with PT/OT, concerns for discharge home. PT with concerns as well. Patient would benefit from SNF vs. Acute Rehab. Pain control. Ice lateral hip. Nausea control. DVT prophylaxis. SCDs. Incentive Spirometry. Monitor dressing. Change prior to discharge. Dispo: SNF vs. Acute Rehab Additional Plan Reviewed case and assessment with attending MD, Dr. Andres. Subjective Subjective Date/Time Seen: 06/06/21 09:10 Post Op day: 2 Principal diagnosis: Left Hip DJD Interval history: POD #2: Left BLAIR Difficulty with PT/OT. Slow progress. Complaints of nausea. Concerned about being discharged home. Review of Systems Constitutional: Constitutional: Denies chills, Denies fatigue, Denies fever(s), Denies night sweats and Denies weakness Cardiovascular: Cardiovascular: Denies chest pain, Denies lightheadedness, Denies palpitations and Denies dyspnea Respiratory: Respiratory: Denies cough, Denies dyspnea and Denies wheezing Gastrointestinal: Gastrointestinal: Denies abdominal pain, Denies diarrhea, Reports nausea and Denies vomiting Musculoskeletal: Musculoskeletal: Reports arthralgias (left hip ), Reports joint swelling (left hip ) and Denies numbness Neurologic: Denies numbness and Denies weakness Endocrine: Endocrine: Denies fatigue and Denies palpitations Allergic/Immunologic: Allergic/Immunologic: Denies wheezing Exam Const: General: comfortable and no acute distress Resp: Effort & Inspection: normal respiratory effort Cardio: Rate: regular rate Rhythm: regular rhythm GI: Inspection: non-distended Skin: General skin exam: normal color Wounds: wounds noted (incision left hip C/D/I ) Neuro: Cognition (Neuro): normal cognition Extrem: Left lower extremity: hip/thigh Details: tenderness Location: of the hip Location: laterally and anteriorly, swelling (thigh soft ) Location: of the hip (lateral. ), abnormal ROM (limitations with internal/external rotation and flexion/extension due to recent surgical intervention ) and other (incision lateral hip c/d/i. ), knee Details: normal to inspection and normal ROM; no tenderness and no swelling, lower leg (Negative Cristal's Sign ) Details: no edema, ankle (+ankle dorsiflexion/plantarflexion ) Details: normal to inspection, no edema and normal ROM; no tenderness, no swelling and no warmth and foot Details: normal capillary refill, toes with normal ROM, vascular exam Details: dorsalis pedis pulse present and motor-sensory exam light-touch normal in all toes; no tenderness, no ecchymosis and no crepitus Psych: Mental Status: mental status grossly normal Affect: normal affect Objective Data Vital Signs Vital Signs: Vital Signs - 24 hr 06/05/21 12:00 06/05/21 15:05 06/05/21 19:51 Temperature 36.9 C 36.1 C L 36.6 C Pulse Rate 93 100 80 Respiratory Rate 16 16 16 Blood Pressure 133/64 117/80 131/52 L Pulse Oximetry 97 97 95 06/05/21 23:48 06/06/21 03:40 Temperature 36.0 C L 36.4 C Pulse Rate 92 93 Respiratory Rate 16 17 Blood Pressure 107/62 110/64 Pulse Oximetry 97 100 Intake/Output Intake/Output: Intake & Output 06/03/21 06/04/21 06/05/21 06/06/21 23:59 23:59 23:59 23:59 Intake Total 640 1340 400 Output Total 850 300 Balance 640 490 100 Meds/Results Medications: Active Medications Generic Name Dose Route Start Last Admin Trade Name Freq PRN Reason Stop Dose Admin Acetaminophen 650 mg 06/04/21 13:17 06/04/21 14:30 Acetaminophen 325 Mg Tablet PO 650 mg Q6H PRN Administration Mild Pain (1-3) or Fever Hydrocodone Bitart/Acetaminophen 1 tab 1
[2021-06-06 09:32] VITALS: O2SAT 98
[2021-06-06 10:10] VITALS: BP 132/71; PULSE 90; RESP 18; TEMP 36.4; O2SAT 99
[2021-06-06 13:15] LABS: Glucose Point of Care 176 mg/dl (65-105)
[2021-06-06 14:35] VITALS: BP 126/55; PULSE 93; RESP 18; TEMP 36.4; O2SAT 97
[2021-06-06] MEDS: ONDANSETRON HCL ODT 4 MG TABLET PO (15:53)
[2021-06-06 16:46] LABS: Glucose Point of Care 175 mg/dl (65-105)
[2021-06-06 20:05] VITALS: BP 129/53; PULSE 105; RESP 16; TEMP 36.4; O2SAT 99
[2021-06-07 00:15] VITALS: BP 126/57; PULSE 98; RESP 18; TEMP 35.7; O2SAT 100
[2021-06-07 03:42] VITALS: BP 128/64; PULSE 89; RESP 17; TEMP 36.4; O2SAT 95
[2021-06-07 08:10] VITALS: BP 146/76; PULSE 99; RESP 18; TEMP 36.5; O2SAT 96
[2021-06-07] MEDS: metFORMIN HCL 500 MG TABLET 1000 MG PO (08:19)
[2021-06-07] MEDS: ASPIRIN 325 MG ENTERIC TABLET 650 MG PO (08:19)
[2021-06-07] MEDS: FAMOTIDINE 20 MG TABLET PO (08:19)
[2021-06-07] MEDS: lisinopriL 10 MG TABLET PO (08:20)
[2021-06-07] MEDS: CELECOXIB 200 MG CAPSULE PO (08:20)
[2021-06-07] MEDS: levoFLOXacin 500 MG TABLET PO (08:20)
[2021-06-07] MEDS: DOCUSATE SODIUM 100 MG CAPSULE PO (08:22)
[2021-06-07] MEDS: ACETAMINOPHEN 325 MG TABLET 650 MG PO (09:47)
--- NOTE | 2021-06-07 10:32 | PM.PNORT ---
Progress Note: A&P Assessment and Plan (1) S/P total hip arthroplasty: Qualifiers: Laterality: left Qualified Code(s): Z96.642 - Presence of left artificial hip joint Code(s): Z96.649 - Presence of unspecified artificial hip joint Status: Acute Assessment and Plan: POD #3: Left BLAIR Continue PT/OT. WBAT. Walker. HIGH FALL RISK. Continued slow progress with PT/OT, concerns for discharge home. Patient would benefit from SNF vs. Acute Rehab. Pain control. Ice lateral hip. Nausea control. Transition to PO. DVT prophylaxis. SCDs. Incentive Spirometry. Monitor dressing. Change prior to discharge. Dispo: SNF vs. Acute Rehab, okay to d/c pending approval. Follow up arranged. Additional Plan Reviewed case and assessment with attending MD, Dr. Andres. Time Spent With Patient Time with patient: less than 15 minutes Subjective Subjective Date/Time Seen: 06/07/21 10:32 Post Op day: 3 Interval history: POD #3: Left BLAIR Still with some difficulty with PT/OT. Complaints of nausea and motion sickness, moderate improvement since yesterday. Review of Systems Constitutional: Constitutional: Denies chills, Denies fatigue, Denies fever(s), Denies night sweats and Denies weakness Cardiovascular: Cardiovascular: Denies chest pain, Denies lightheadedness, Denies palpitations and Denies dyspnea Respiratory: Respiratory: Denies cough, Denies dyspnea and Denies wheezing Gastrointestinal: Gastrointestinal: Denies abdominal pain, Denies diarrhea, Reports nausea and Denies vomiting Musculoskeletal: Musculoskeletal: Reports arthralgias (left hip ), Reports joint swelling (left hip ) and Denies numbness Neurologic: Denies numbness and Denies weakness Endocrine: Endocrine: Denies fatigue and Denies palpitations Allergic/Immunologic: Allergic/Immunologic: Denies wheezing Exam Const: General: comfortable and no acute distress Resp: Effort & Inspection: normal respiratory effort Cardio: Rate: regular rate Rhythm: regular rhythm GI: Inspection: non-distended Skin: General skin exam: normal color Wounds: wounds noted (incision left hip C/D/I ) Neuro: Cognition (Neuro): normal cognition Extrem: Left lower extremity: hip/thigh Details: tenderness Location: of the hip Location: laterally and anteriorly, swelling (thigh soft ) Location: of the hip (lateral. ), abnormal ROM (limitations with internal/external rotation and flexion/extension due to recent surgical intervention ) and other (incision lateral hip c/d/i. ), knee Details: normal to inspection and normal ROM; no tenderness and no swelling, lower leg (Negative Cristal's Sign ) Details: no edema, ankle (+ankle dorsiflexion/plantarflexion ) Details: normal to inspection, no edema and normal ROM; no tenderness, no swelling and no warmth and foot Details: normal capillary refill, toes with normal ROM, vascular exam Details: dorsalis pedis pulse present and motor-sensory exam light-touch normal in all toes; no tenderness, no ecchymosis and no crepitus Psych: Mental Status: mental status grossly normal Affect: normal affect Objective Data Vital Signs Vital Signs: Vital Signs - 24 hr 06/06/21 14:35 06/06/21 20:05 06/07/21 00:15 Temperature 36.4 C L 36.4 C 35.7 C L Pulse Rate 93 105 H 98 Respiratory Rate 18 16 18 Blood Pressure 126/55 L 129/53 L 126/57 L Pulse Oximetry 97 99 100 06/07/21 03:42 06/07/21 08:10 Temperature 36.4 C 36.5 C Pulse Rate 89 99 Respiratory Rate 17 18 Blood Pressure 128/64 146/76 H Pulse Oximetry 95 96 Intake/Output Intake/Output: Intake & Output 06/04/21 06/05/21 06/06/21 06/07/21 23:59 23:59 23:59 23:59 Intake Total 640 1340 1360 500 Output Total 850 950 900 Balance 640 490 410 -400 Meds/Results Medications: Active Medications Generic Name Dose Route Start Last Admin Trade Name Freq PRN Reason Stop Dose Admin Acetaminophen 650 mg 06/04/21 13:17 06/07/21 09:47 Acetaminophen 325 Mg Table
--- NOTE | 2021-06-07 12:33 | PM.DS ---
DS: Admitting Diagnosis Discharge Date 06/07/21 Admitting Diagnosis Left Hip DJD DS: Discharge Diagnosis Discharge Diagnosis (1) S/P total hip arthroplasty: Qualifiers: Laterality: left Qualified Code(s): Z96.642 - Presence of left artificial hip joint Code(s): Z96.649 - Presence of unspecified artificial hip joint Status: Acute Assessment and Plan: POD #3: Left BLAIR Continue PT/OT. WBAT. Walker. HIGH FALL RISK. Continued slow progress with PT/OT, concerns for discharge home. Patient would benefit from SNF vs. Acute Rehab. Pain control. Ice lateral hip. Nausea control. Transition to PO. DVT prophylaxis. SCDs. Incentive Spirometry. Monitor dressing. Change prior to discharge. Dispo: Home with Home Health today Follow up arranged. DS: Summary Hospital Course Reason for hospitalization: Left BLAIR Hospital Course: 61-year-old female admitted status post left total hip arthroplasty for postoperative medical care, pain control and mobilization with physical and occupational therapy. Patient had very slow progress with PT and OT on postop day 1 and postop day 2. She also had difficulty with motion sickness and nausea. Initially, it was determined that the patient would be better suited to be discharged to a assisted facility as opposed to discharge home with home health Due to lack of family support at home. Patient was cleared to be discharged to a assisted facility called [facility] in [place], [place]. After discussing discharge plans with her , patient was able to secure assistance by her for the next several weeks. He will no longer be going out of town. Home health will be seen the patient several times per week. Physical and occupational therapy feel confident with her ability to be discharged home at this time. Her nausea has been resolved. She is no longer complaining of motion sickness either. She will be discharged home with home health at this time and will follow-up in the [facility]patient [facility] in approximately 3 weeks. Extensively reviewed hip precautions and use of walker at discharge. The patient will be discharged home with DVT prophylaxis of a full-strength aspirin 2 times daily for 28 days total. Status at Discharge Cognitive/behavioral status at discharge: Baseline, A&Ox4 Functional status at discharge: uses cane/walker Overall status at discharge: patient is progressing back to baseline Time Spent with Patient Time attestation: Total time spent providing and/or coordinating discharge services: Time spent: Greater than 30 minutes Exam Const: General: comfortable and no acute distress Resp: Effort & Inspection: normal respiratory effort Cardio: Rate: regular rate Rhythm: regular rhythm GI: Inspection: non-distended Skin: General skin exam: normal color Wounds: wounds noted (incision left hip C/D/I ) Neuro: Cognition (Neuro): normal cognition Extrem: Left lower extremity: hip/thigh Details: tenderness Location: of the hip Location: laterally and anteriorly, swelling (thigh soft ) Location: of the hip (lateral. ), abnormal ROM (limitations with internal/external rotation and flexion/extension due to recent surgical intervention ) and other (incision lateral hip c/d/i. ), knee Details: normal to inspection and normal ROM; no tenderness and no swelling, lower leg (Negative Cristal's Sign ) Details: no edema, ankle (+ankle dorsiflexion/plantarflexion ) Details: normal to inspection, no edema and normal ROM; no tenderness, no swelling and no warmth and foot Details: normal capillary refill, toes with normal ROM, vascular exam Details: dorsalis pedis pulse present and motor-sensory exam light-touch normal in all toes; no tenderness, no ecchymosis and no crepitus Psych: Mental Status: mental status grossly normal Affect: normal affect DS: Data Data Completed and Pending Labs on day of discharge: Labs from last 24 hours
== END 2021-06-07 14:39 | disposition home health service (06) ==
LOC: ANHSURGERY 14:58 → ANH2MED 06-06 08:27
PROVIDERS: Admitting Provider Orthopaedic Surgery; PCP Internal Medicine; Visit Provider Orthopaedic Surgery
PROC: (CPT 27130; principal; 2021-06-04 08:30)
DX: M16.12 Unilateral primary osteoarthritis, left hip (principal); I10 Essential (primary) hypertension; E11.9 Type 2 diabetes mellitus without complications; Z79.84 Long term (current) use of oral hypoglycemic drugs
CPT/HCPCS: 27130; 36415; 73501; 80048; 82948; 85025; 97110; 97116; 97161; 97165; 97530; 97535; A9270; C1776; G0378; J0171; J0461; J0690; J1100; J1170; J2250; J2270; J2370; J2405; J2704; J2795; J7120

== ENCOUNTER 2021-06-12 14:11 | Outpatient (NON) | payer BC, SELFPAY ==
[2021-06-12 14:52] LABS: Add Urine Microscopic? YES; Appearance Urine Cloudy (Clear); Bilirubin Urine Negative (Negative); Blood Urine Negative (Negative); Color Urine Yellow (Yellow); Glucose Urine UA Negative (Negative); Ketones Urine Negative (Negative); Leukocyte Esterase Ur Trace LEU/UL (Negative); Mucus Urine Rare /lpf; Nitrate Urine Negative (Negative); Protein Urine Negative (Negative); RBC Urine 0-2 /hpf (0-2); Squamous Epithelial Cell Urine Few /hpf (Few); WBC Urine 0-3 /hpf
== END 2021-06-12 14:12 | disposition home or self-care (01) ==
LOC: HOME HLTH 14:12
PROVIDERS: PCP Internal Medicine; Visit Provider Clinical Nurse Specialist
DX: N39.0 Urinary tract infection, site not specified (principal); R30.0 Dysuria
CPT/HCPCS: 81001

== ENCOUNTER → 2021-07-04 09:22 | Outpatient (CLI) | payer BC, SELFPAY ==
[2021-07-04 19:33] LABS: SARS-CoV-2 RNA PCR Positive
== END ==
PROVIDERS: PCP Internal Medicine; Visit Provider Nurse Practitioner
DX: U07.1 COVID-19 (principal)
CPT/HCPCS: C9803; U0003; U0005

== ENCOUNTER 2025-03-03 16:29 | Emergency (ER) | payer BC, SELFPAY ==
--- NOTE | ~2025-03-03 | XR_ITS ---
HISTORY: knee pain/swelling COMPARISON: None TECHNIQUE: 4 views of the left knee were performed FINDINGS: No acute or subacute fracture. Medial and lateral tibiofemoral joint space narrowing is identified. Small suprapatellar joint effusion is identified. The infrapatellar joint space is clear. IMPRESSION: Degenerative disease without acute fracture. Reviewed, dictated and finalized at location A.
--- NOTE | 2025-03-03 16:30 | ED_ITS ---
HPI - Extremity Injury (Lower) General Chief Complaint: Extremity Injury, Lower Stated Complaint: L Knee Pain Time Seen by Provider: 03/03/25 16:30 Source: patient Mode of arrival: ambulatory Limitations: no limitations History of Present Illness HPI Narrative: Sarahi is a 64-year-old female patient presenting to the clinic today with complaints of left knee pain/swelling x2 weeks. She reports she possibly twi sted her knee 2 weeks ago while at [employer]. Has pain and swelling to the left knee with mild erythema. History of osteoarthritis and edward cyst. No history of gout. Is having limited range of motion to the left knee due to pain and swelling. Walking with a wheeled walker. Rates her pain 10 currently- has been taking ibuprofen. Related Data Allergies Allergy/AdvReac Type Severity Reaction Status Date / Time latex Allergy Intermediate REDNESS, Verified 03/03/25 16:39 RASH Penicillins AdvReac Intermediate DECREASED Verified 03/03/25 16:39 HEART RATE fentanyl AdvReac Mild DIZZINESS, Verified 03/03/25 16:39 HEADACHE Review of Systems Review of Systems: Pertinent positives per HPI. Patient denies any fever, chills, rash, headache, visual changes, dizziness, cough, runny nose, sore throat, shortness of breath, chest pain, palpitations, nausea, vomiting, diarrhea, constipation, abdominal pain, or any urinary issues. 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 Nausea Degenerative joint disease (DJD) of hip Encounter for screening mammogram for breast cancer Screening for osteoporosis Osteoarthritis of hip Essential (primary) hypertension Type 2 diabetes mellitus Elevated blood pressure reading Vitamin D deficiency Fatigue Screening for lipoid disorders Screening for metabolic disorder Allergies Surgical History Surgical History S/P total hip arthroplasty History of arthroscopy of left knee History of section complicating Family History Family History Father Cancer Diabetes mellitus Hypertension Mother Diabetes mellitus Hypertension Depression Anxiety Sibling Diabetes mellitus Hypertension Social History Social History Social History: Caffeine-coffee Smoking status: Never smoker Alcohol intake: never Substance use: never Substance use type: does not use Living arrangements: with family Additional living arrangements comments: [facility] Gender identity (if verbalized by the patient): Female Spiritual care concerns: No Comments At the time of my signature, I reviewed and agree with the nursing past medical, surgical, social, and family history. There is no relevant family history pertinent to the patient complaint. Exam Narrative: General: Well-developed, well nourished, chronically ill-appearing, in no apparent distress Head: Normocephalic, atraumatic. Cardio: Regular rate and rhythm, s1 and s2 normal, no murmur appreciated. Resp: Clear to auscultation bilaterally, no rhonchi, rales, wheezing or rubs. Musculoskeletal: No deformity, mild erythema, 1+ pitting edema over the knee, tender to palpation over the anterior lateral and medial knee joint, very limited range of motion due to pain and swelling, pain with ambulation, muscle strength strong and equal, peripheral pulse strong, no cyanosis, slow cautious gait with wheeled walker Course Course Emergency Course: Portions of this record may have been created with voice recognition software. Level of Care: Express Care Visit Vital Signs Vital signs: Vital Signs Temperature 36.2 C L 03/03/25 16:42 Pulse Rate 128 H 03/03/25 16:42 Respiratory Rate 16 03/03/25 16:42 Blood Pressure 171/102 H 03/03/25 16:42 Pulse Oximetry 100 03/03/25 16:42 Temperature 36.2 C L 03/03/25 16:42 Pulse Rate 112 H 03/03/25 17:26 Respiratory Rate 16 03/03/25 16:42 Blood Pressure 170/90 H 03/03/25 17:26 Pulse Oximetry 100 03/03/25 16:42 Vital signs reviewed MDM - Extremity Injury (Lower) MDM Narrative Medical decision making narrative: At the time of visit patient is resting comfortably on the exam table. Patient appears to be nontoxic. Complaints of left knee pain/swelling x2 weeks. She reports she possibly twisted her knee 2 weeks ago while at [employer]. Has pain and swelling to the left knee with mild erythema. History of osteoarthritis and edward cyst. No history of gout. Is having limited range of motion to the left knee due to pain and swelling. Walking with a wheeled walker. X-ray of the left knee was ordered. Diagnostics: X-ray left knee performed. X-rays negative for any sign of acute fracture or malalignment. Does show some suprapatellar small effusion as well as degenerative changes. Well Criteria DVT: -1?points Low risk group for DVT. ?Unlikely? according to Wells? DVT studies. Plan: I suspect patient has acute knee pain and swelling with osteoarthritis. Cannot rule out internal derangement of the knee. Follow-up with orthopedic provider. Call Dr. Estes office on Thursday to schedule appointment. Will send in prescription for Medrol Dosepak to help with swelling and inflammation. Patient states Medrol Dosepak causes nausea so will send and some Zofran for that. Michael wrap was applied-sensation, circulation, and motion within normal limits after application of the Michael wrap. Supportive measures were discussed with the patient and they voiced understanding discharge instructions and agrees to treatment plan. Return precautions reviewed Differential Diagnosis Differential diagnosis: Likely acute internal derangement of knee and other (Knee sprain, osteoarthritis, gout, rheumatoid arthritis) Imaging Data Radiologist's impression: ITS Impressions Knee X-Ray 03/03/25 17:54 IMPRESSION: Degenerative disease without acute fracture. Discharge Plan Discharge Clinical Impression: Pain and swelling of knee Qualifiers: Laterality: left Qualified Code(s): M25.562 - Pain in left knee Patient Disposition: Home Condition: Stable Instructions: Antibiotic Form, Knee Pain (ED) Additional Instructions: Rest, ice, elevate, and wear michael wrap as directed Tylenol/motrin for pain as discussed. Take Medrol Dosepak as prescribed Gradually bear weight-use wheeled walker Follow up with your PCP if symptoms persist more than 1 week. Follow-up with Dr. Estes- call office to schedule an appointment on Thursday. Patient Language: Mongolian Prescriptions: New methylprednisolone [Medrol (Ashish)] 4 mg tablets,dose pack See Rx Instructions PO .COMPLEX Qty: 21 0RF Rx Instructions: orally per package directions ondansetron 8 mg tablet,disintegrating 8 mg PO Q8H PRN (Reason: nausea and vomiting) 3 Days Qty: 10 0RF Follow-up/Referrals: Raoul Estes MD [Physician] - 2 Days (Left acute knee pain and swelling- twisting injury) UNKNOWN,DOCTOR [Non-Staff] - Time of Disposition: 18:00 Quality NIHSS Nursing Documentation ED NIHSS nursing documentation: reviewed/agree
[2025-03-03 16:42] VITALS: BP 171/102; PULSE 128; RESP 16; TEMP 36.2; O2SAT 100
[2025-03-03 17:26] VITALS: BP 170/90; PULSE 112
== END 2025-03-03 18:05 | disposition home or self-care (01) ==
PROVIDERS: Emergency Provider Nurse Practitioner Family
DX: M25.562 Pain in left knee (principal); I10 Essential (primary) hypertension; E11.9 Type 2 diabetes mellitus without complications; M16.12 Unilateral primary osteoarthritis, left hip; M17.11 Unilateral primary osteoarthritis, right knee
CPT/HCPCS: 73564; 99213; G0463

== ENCOUNTER 2025-03-05 13:43 | Inpatient (IN) | payer MEDICARE, BC, SELFPAY ==
[2025-03-05] VITALS (7 sets, daily range): BP systolic 160–173; BP diastolic 64–103; PULSE 92–116; RESP 17–20; TEMP 36.3–37.2; O2SAT 100; BMI 27.5
--- NOTE | ~2025-03-05 | CT_ITS ---
EXAMINATION: CTA BRAIN/CAROTID DATE: 03/07/2025 10:30 INDICATION: 2 weeks of right-sided weakness and neck pain TECHNIQUE: Computed tomographic angiography (CTA) of the head and neck was performed with 100 mL Omni paque-350 intravenous contrast. Multiplanar reconstructions and maximum intensity projection 3D-recon structions of the carotid arteries and of the intracranial arteries were created by the technologist on a separate workstation. Precontrast CT of the head was also obtained. Automated exposure control and iterative reconstruction technique were employed.The dose-length product was 1422.63 mGy-cm. COMPARISON: None. FINDINGS: Carotid arteries: The aortic arch and the great vessels arising from the arch are normal in caliber with no dissection or hemodynamically significant stenosis. No hemodynamically significant stenosis along the bilateral vertebral arteries. The right vertebral artery is dominant. There is 40% stenosis of the right caroti d bulb relative to normal distal artery lumen diameter (NASCET criteria). There is 0% stenosis of the left carotid bulb relative to normal distal artery lumen diameter. Calcified right apical nodule con sistent with old granulomatous disease. Cervical soft tissues are unremarkable. Mild cervicothoracic levocurvature with mild upper thoracic and minimal cervical spondylosis. Head: No acute intracranial hemorrhage, acute infarction or abnormal extra axial fluid collection. There is mild scattered white matter hypoattenuation consistent with chronic small vessel ischemic disease. S ymmetric prominence of the sulci consistent with mild age-appropriate diffuse cerebral volume loss. V entricles are normal and symmetric. No mass/mass effect. No abnormally enhancing brain lesions on the postcontrast imaging. Mild mucosal thickening in the bilateral maxillary sinuses The orbits and mast oid air cells are normal. Intracranial arteries The right vertebral artery is dominant and appears be the sole supply to the basilar artery with the left vertebral artery terminating at the left posterior inferior cerebellar artery there is extensive atherosclerotic calcification but with mild, <50% stenosis along the bilateral carotid siphons. Ther e is no hemodynamically significant stenosis in the vertebral, basilar and internal carotid arteries. Both A1 segments are patent. The bilateral posterior cerebral arteries are supplied predominantly by patent bilateral posterior communicating arteries which presumably larger in caliber than the diminu tive bilateral P1 segments. There is also a patent anterior communicating artery. There are no aneury sms identified. Cerebral arterial arborization appears symmetric. IMPRESSION: 1. 40% stenosis of the right carotid bulb relative to normal distal artery lumen diameter (NASCET cri teria). 2. 0% stenosis of the left carotid bulb relative to normal distal artery lumen diameter. 3. Excess of atherosclerotic plaque but with <50% stenosis along the bilateral carotid siphons. No he modynamically significant stenosis, thrombosis or aneurysm of the intracranial arteries. 4. Age-related changes in the brain including mild diffuse volume loss and mild scattered white matte r hypoattenuation consistent with chronic small vessel ischemic disease. No acute intracranial proces s or abnormally enhancing brain lesions. Reviewed, dictated and finalized at location A. IMPRESSION: 1. 40% stenosis of the right carotid bulb relative to normal distal artery lume n diameter (NASCET criteria). 2. 0% stenosis of the left carotid bulb relative to normal distal artery lumen diameter. 3. Excess of atherosclerotic plaque but with <50% stenosis along the bilateral carotid siphons. No hemodynamically significant stenosis, thrombosis or aneurys m of the intracranial arteries. 4. Age-related changes in the brain including mild diffuse volume loss and mild scattered white matter hypoattenuation consistent with chronic small vessel is chemic disease. No acute intracranial process or abnormally enhancing brain les ions.
--- NOTE | ~2025-03-05 | CT_ITS ---
EXAMINATION: CT abdomen pelvis w con DATE: 03/05/2025 17:55 INDICATION: abd pain, vomiting TECHNIQUE: Computed tomography (CT) of the abdomen and pelvis was performed with 100 mL Omnipaque-350 intravenous contrast. Automated exposure control and iterative reconstruction technique were employe d. The dose-length product was 383.68 mGy-cm. COMPARISON: None. FINDINGS: Lower thorax: 4 mm right middle lobe pulmonary nodule. Liver: Normal. Biliary/Gallbladder: Cholelithiasis. No inflammatory changes. No bile duct dilation. Pancreas: No mass or duct dilation. Spleen: Normal. Adrenals:No mass. Kidneys: 4 mm right midpole nonobstructing calcification. No suspicious mass. Symmetric enhancement. Prominent bilateral renal pelves. No ureteral dilation. GI tract: No small or large bowel dilation. Normal appendix. Mesentery/Peritoneum: No ascites, mass, or free air. Retroperitoneum: No mass. Pelvis: Distended urinary bladder without wall thickening. Normal uterus and bilateral ovaries. Soft Tissues: Soft tissues and body wall unremarkable. Bones: No acute osseous finding. Exaggerated lumbar lordosis. Multilevel degenerative disc disease. Grade 1 anterolisthesis at L4-5. Severe central canal narrowing at L3-4 and L4-5 secondary to degener ative changes. Partially visualized, uncomplicated appearing left hip hardware. IMPRESSION: 4 mm right middle lobe pulmonary nodule, which requires no follow-up unless the patient is at high ri sk, in which case consider an optional CT in 12 months. Cholelithiasis, without inflammatory changes or bile duct dilation. Prominent bilateral renal pelves, may reflect a degree of chronic UPJ obstruction. 4 mm right midpole nephrolith. No evidence of obstructive uropathy. Distended urinary bladder, correlate for symptoms of urinary retention. Reviewed, dictated and finalized at location K. IMPRESSION: 4 mm right middle lobe pulmonary nodule, which requires no follow-up unless the patient is at high risk, in which case consider an optional CT in 12 months. Cholelithiasis, without inflammatory changes or bile duct dilation. Prominent bilateral renal pelves, may reflect a degree of chronic UPJ obstructi on. 4 mm right midpole nephrolith. No evidence of obstructive uropathy. Distended urinary bladder, correlate for symptoms of urinary retention.
--- NOTE | ~2025-03-05 | MR_ITS ---
EXAMINATION: MR brain/brain stem wo/w con DATE: 03/07/2025 10:28 INDICATION: Weakness TECHNIQUE: Magnetic resonance imaging (MRI) of the brain and brainstem was performed without and with 13 mL Multihance intravenous contrast. Sequences included sagittal and axial T1-weighted SE, axial d iffusion-weighted FS SE, axial 3D SWAN, axial T2-weighted FLAIR, and axial T2-weighted FSE. Postcontr ast axial and coronal T1-weighted SE was obtained. Apparent diffusion coefficient (ADC) maps were cre ated. COMPARISON: None. FINDINGS: There are no areas of restricted diffusion to suggest acute infarction. No intracranial hemorrhage or abnormal intracranial mass lesion. There are scattered areas of nonspecific increased T2-weighted si gnal intensity in the cerebral white matter, predominantly involving the deep and periventricular whi te matter. Symmetric bilateral pattern of susceptibility artifact at the globus pallidus, dentate nuc lei. The ventricles are symmetric and normal in size. There are no abnormal extra-axial fluid collect ions. Flow voids are seen in the cerebral arteries on the T2-weighted sequences consistent with their expected patency. Right vertebral artery is dominant. Visualized orbits and soft tissues are unremar kable. There are no areas of abnormal enhancement on the post contrast images. IMPRESSION: 1. No acute intracranial process. 2. Symmetric pattern of bilateral susceptibility artifact at the globus pallidus and dentate nuclei w hich can be related to calcium or iron deposition, the former typically age-related but both with wid e differentials including toxic insults and neurodegenerative diseases such as Parkinson's. Reviewed, dictated and finalized at location A. IMPRESSION: 1. No acute intracranial process. 2. Symmetric pattern of bilateral susceptibility artifact at the globus pallidu s and dentate nuclei which can be related to calcium or iron deposition, the fo rmer typically age-related but both with wide differentials including toxic ins ults and neurodegenerative diseases such as Parkinson's.
--- NOTE | ~2025-03-05 | XR_ITS ---
HISTORY: knee pain COMPARISON: 11/16/2020 TECHNIQUE: 3 views of the right knee were performed FINDINGS: No acute or subacute fracture. Patella perri is identified. Medial and lateral tibiofemoral joint space narrowing is identified with osteophytic ridging. A moderate suprapatellar joint effusion is identified. The infrapatellar joint space is clear. IMPRESSION: Patella perri with a suprapatellar joint effusion and significant degenerative disease. No acute fracture. Reviewed, dictated and finalized at location A. IMPRESSION: Patella perri with a suprapatellar joint effusion and significant d egenerative disease. No acute fracture.
--- NOTE | ~2025-03-05 | MR_ITS ---
EXAMINATION: MR lumbar spine wo/w con DATE: 03/09/2025 14:55 INDICATION: Low back pain TECHNIQUE: Magnetic resonance imaging (MRI) of the lumbar spine was performed without and with 13 mL Multihance intravenous contrast. Sequences included sagittal T2-weighted FSE, sagittal T2-weighted FS FSE, and sagittal and axial T1-weighted FSE. Postcontrast sequences included axial T2-weighted FSE, sagittal T1-weighted FSE, and axial and sagittal T1-weighted FS FSE. COMPARISON: None FINDINGS: 2 mm retrolisthesis T11 on T12. 4 mm anterolisthesis L4 on L5. Vertebral body heights are normal. Sev ere disc height loss with fibrovascular degenerative endplate changes at T11-T12. Marrow signal is ot herwise unremarkable. Moderate disc height loss at T9-T10 and L4-L5. Mild disc height loss at T10-T11 , L2-L3 and L3-L4. The conus medullaris terminates at T12. There is normal signal in the caudal spina l cord. The following disc levels are specifically discussed: T11-T12: Annular fissure and broad-based disc extrusion extending from foraminal zone to foraminal zo ne with individual extending a few millimeter caudal to the level of the superior endplate of T12. Th ere is mild bilateral facet osteoarthritis. There is moderate left and mild right neural foraminal st enosis. There is mild central canal stenosis. T12-L1: Disc is mildly bulging. There is mild right and moderate left facet joint osteoarthritis. The re is mild bilateral neural foraminal stenosis. There is minimal central canal stenosis. L1-L2: Small right subarticular zone disc protrusion. There is mild bilateral facet joint osteoarthri tis. There is mild bilateral neural foraminal stenosis. There is negligible central canal stenosis. L2-L3: Disc is bulging. There is mild bilateral facet joint osteoarthritis. There is mild bilateral n eural foraminal stenosis. There is mild central canal stenosis. L3-L4: Disc is bulging. There is moderate left and severe right facet joint osteoarthritis. There is likely secondary reactive periarticular edema and non masslike enhancement surrounding the right face t joint. No evident joint effusion or cortical erosions on the CT from 4 days prior to suggest septic arthritis or osteomyelitis. There is moderate left and mild to moderate right neural foraminal steno sis. There is moderate central canal stenosis. L4-L5: Annular fissure and broad-based disc extrusion extending from foraminal zone to foraminal zone with disc material extending up to 3 mm cephalad to the level of the inferior endplate of L4. There is severe bilateral facet joint osteoarthritis with chronic fusion. There is moderate bilateral neura l foraminal stenosis. There is moderate to severe central canal stenosis with minimal CSF signal inte rspersed amongst the centrally clustered nerve roots.. L5-S1: Disc is mildly bulging. There is moderate bilateral facet joint osteoarthritis. There is moder ate bilateral neural foraminal stenosis. There is no central canal stenosis. IMPRESSION: 1. Severe lower thoracic and mild to moderate lower lumbar predominant spondylosis with likely reacti ve soft tissue and marrow edema and enhancement associated with severe osteoarthritis at the right L3 -L4 facet joint. Reviewed, dictated and finalized at location A. IMPRESSION: 1. Severe lower thoracic and mild to moderate lower lumbar predominant spondylo sis with likely reactive soft tissue and marrow edema and enhancement associate d with severe osteoarthritis at the right L3-L4 facet joint.
--- OUTSIDE RECORDS SUMMARY | 2025-03-05 13:46 | XMS_ITS | Clinical Summary ---
Author Organization [facility] Address [address] [place] [address] Care Team Providers Care Manager Sales And Marketing Name Role Phone Unavailable Primary Care Provider Unavailabl e Source Comments [facility],non-owned Affiliates and Associated Physician Practices is amultiple site organization consisting of ambulatory clinics and hospital sitesin [place], [place], [place] and [place]. This disclosure is being madepursuant to the Care Everywhere program and may not contain all information available regarding this patient. Last updated 18.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 Gender Identity Not on file Sexual Orientation Not on file Plan of Treatment Health Maintenance Due Date Last Done Comments BONE DENSITY TESTING 1958 COLOGUARD (AGES 45-75) - COL ON CA SCREENING 1958 COLON MONITORING 1958 COLONOSCOPY - COLON CA SCREENING 1958 CT COLONOGRAPHY - COLON CA SCREENING 1958 Colorectal Cancer Screening 1958 FIT - COLON CA SCREENING 1958 FLEX SIG - COLON CA SCREENING 1958 LIPID TESTING 1958 MAMMOGRAM 1958 HEPATITIS C SCREENING 03/27/1976 DTAP/TDAP/TD VACCINES (1 - Tdap) 1977 PAP with HPV 1988 PNEUMOCOCCAL VACCINE 50+ (1 of 1 - PCV) 2008 ZOSTER VACCINE (1 of 2) 2008 COVID-19 VACCINE (1 - 2023-2 5 season) 2024 DEPRESSION SCREENING 07/27/2024 INFLUENZA VACCINE (#1) 2025 Respiratory Syncytial Virus (RSV) Vaccine Pt: or over 60 yrs (1 - 1-dose 75+ series) 2033 HEPATITIS B VACCINE Aged Out No longe r eligible based on patient's age to complete this topic HIB VACCINE Aged Out No longer eligi ble based on patient's age to complete this topic HPV VACCINE Aged Out No longer eligi ble based on patient's age to complete this topic MENINGOCOCCAL (Group B) VACC INE SHARED DECISION-MAKING Aged Out No longer eligibl e based on patient's age to complete this topic MENINGOCOCCAL GROUPS A/C/Y/W VACCINE Aged Out No longer eligible b ased on patient's age to complete this topic
--- OUTSIDE RECORDS SUMMARY | 2025-03-05 15:41 | XMS_ITS | Clinical Summary ---
Author Organization [facility] Address [address] [place] [address] Care Team Providers Care Fire Engine Operator Name Role Phone Unavailable Primary Care Provider Unavailabl e Source Comments [facility],non-owned Affiliates and Associated Physician Practices is amultiple site organization consisting of ambulatory clinics and hospital sitesin [place], [place], [place]. This disclosure is being madepursuant to the Care Everywhere program and may not contain all information available regarding this patient. Last updated 18.[facility] [employer] 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
[2025-03-05 15:46] LABS: Hematocrit 45.5 % (37.0-47.0); Hemoglobin 15.0 g/dL (12.0-15.0); Immature Granulocyte Percent A 0.6 % (0-0.5); Lymphocytes Absolute Auto 2.25 K/mm3 (0.9-3.2); Mean Corpuscular HGB Conc 33.0 g/dl (32-36); Mean Corpuscular Hemoglobin 29.6 pg (26-34); Mean Corpuscular Volume 89.7 fl (80-100); Nucleated Red Blood Cells Absolute Auto 0.000 K/mm3 (0.0-0.012); Nucleated Red Blood Cells Perc 0.0 % (0.0-0.2); Platelet Count Result 524 k/mm3 (150-375); Red Blood Count 5.07 M/mm3 (4.2-5.4); White Blood Count 9.4 K/mm3 (4.5-10.0)
[2025-03-05 15:56] LABS: Alanine Aminotransferase 30 U/L (6-35); Albumin Level 4.3 g/dL (3.5-5.1); Alkaline Phosphatase 109 U/L (38-126); Anion Gap 25 mmol/L (4-12); Aspartate Amino Transferase 31 U/L (14-36); Bilirubin,Total 1.0 mg/dL (0.2-1.3); Blood Urea Nitrogen 13 mg/dL (7-17); Calcium 10.9 mg/dL (8.4-10.2); Carbon Dioxide 7 mmol/L (22-30); Chloride 100 mmol/L (98-107); Estimated CRCL calculation 65 ml/min; Estimated Glomerular Filt Rate > 60; Glucose 336 mg/dL (65-110); Lipase 54 U/L (23-300); Potassium 4.4 mmol/L (3.4-5.0); Sodium 132 mmol/L (137-145); Total Protein 8.5 g/dL (6.3-8.2)
--- NOTE | 2025-03-05 16:14 | ED.ABDPAIN ---
HPI - Abdominal Pain General Chief Complaint: Abdominal Pain <DAMIEN Pillai Last Filed: 03/05/25 21:23> Stated Complaint: nausea, abd pain, trouble swallowing x 7 days <DAMIEN Pillai Last Filed: 03/05/25 21:23> Time Seen by Provider: 03/05/25 15:28 <DAMIEN Pillai Last Filed: 03/05/25 21:23> Source: patient and family <DAMIEN Pillai Last Filed: 03/05/25 21:23> Mode of arrival: ambulatory <DAMIEN Pillai Last Filed: 03/05/25 21:23> Limitations: no limitations <DAMIEN Pillai Last Filed: 03/05/25 21:23> History of Present Illness HPI narrative: This is a 64-year-old female that presents to the emergency department for decreased appetite, nausea, vomiting, abdominal discomfort. Worsening over the last week. Reports she was recently seen at urgent care for pain and swelling to the left knee. Told she had arthritis. Started on Medrol dose pack. Reports she has not been to a PCP in years. Reports she has dental implants and has difficulty keeping them clean. <DAMIEN Pillai Last Filed: 03/05/25 21:23> Related Data Home Medications: Home Medications ?Medication ?Instructions ?Recorded ?Confirmed ?Last Taken ?Type No Home Medications 03/05/25 03/05/25 Unknown History <DAMIEN Pillai Last Filed: 03/05/25 21:23> Allergies/Adverse Reactions: Allergies Allergy/AdvReac Type Severity Reaction Status Date / Time latex Allergy Intermediate REDNESS, Verified 03/05/25 21:41 RASH Penicillins AdvReac Intermediate DECREASED Verified 03/05/25 21:41 HEART RATE and rash fentanyl AdvReac Mild DIZZINESS, Verified 03/05/25 21:41 HEADACHE <DAMIEN Pillai Last Filed: 03/05/25 21:23> Review of Systems Review of Systems: All systems reviewed & are unremarkable except as noted in HPI and below <DAMIEN Pillai Last Filed: 03/05/25 21:23> PMFSH Past Medical History Medical History: Medical History Obesity Degenerative joint disease of left hip Right knee DJD Nausea Degenerative joint disease (DJD) of hip Encounter for screening mammogram for breast cancer Screening for osteoporosis Osteoarthritis of hip Essential (primary) hypertension Type 2 diabetes mellitus Elevated blood pressure reading Vitamin D deficiency Fatigue Screening for lipoid disorders Screening for metabolic disorder Allergies <Concepcion Braswell PA-C - Last Filed: 03/05/25 21:23> Surgical History Surgical History: Surgical History S/P total hip arthroplasty History of arthroscopy of left knee History of section complicating <Concepcion Braswell PA-C - Last Filed: 03/05/25 21:23> Family History Family History: Family History Father Cancer Diabetes mellitus Hypertension Mother Diabetes mellitus Hypertension Depression Anxiety Sibling Diabetes mellitus Hypertension <Concepcion Braswlel PA-C - Last Filed: 03/05/25 21:23> Social History Social History: Social History Social History: Caffeine-coffee Smoking status: Never smoker Alcohol intake: never Substance use: never Substance use type: does not use Lack of Transportation: No Lack of Food: Never True Current Housing: I Have Housing Concerned About Future Housing: No Difficulty Paying Gas/Electric Bills: Decline to Answer Difficulty Paying for Meds: Decline to Answer Currently Unemployed: Decline to Answer Education: Decline to Answer Difficulty w/ Childcare or Family Care: Decline to Answer Living arrangements: with family Additional living arrangements comments: SPOUSE Gender identity (if verbalized by the patient): Female Spiritual care concerns: No <Concepcion Braswell PA-C - Last Filed: 03/05/25 21:23> Exam Narrative: GENERAL: Well-appearing, well-nourished, and in no acute distress. HEAD: Normocephalic, atraumatic. EYES: EOMI. ENT: Nares clear, no rhinorrhea or epistaxis. Mucous membranes moist. Oropharynx, tongue, buccal mucosa with erythema, white plaques. NECK: Supple. No adenopathy or masses. CHEST: Clear to auscultation. No respiratory distress. No wheezes rales or rhonchi HEART: Regular rate and rhythm. No murmur heard. Normal peripheral pulses. ABDOMEN: Soft, nontender, nondistended, normal active bowel sounds. EXTREMITIES: Normal range of motion. Mild edema about the left knee anteriorly without overlying erythema. Normal DP pulses. Normal sensation SKIN: Warm, dry, no rash. NEURO: No focal deficits. Alert and oriented x3. PSYCH: Normal mood and affect <Concepcion Braswell PA-C - Last Filed: 03/05/25 21:23> Course Course Emergency Course: patient updated on her workup and need for admission <Concepcion Braswell PA-C - Last Filed: 03/05/25 21:23> ELECTRIC MULE OPERATOR/PA Physician Supervision For this patient encounter, I reviewed the ELECTRIC MULE OPERATOR or PA documentation, treatment plan, and medical decision making; and I had [id number] time with this patient. <Walter King MD - Last Filed: 03/06/25 19:30> Consultations Consultation #1: spoke with hospitalist about patient and workup who accepts admission <Concepcion Braswell PA-C - Last Filed: 03/05/25 21:23> Date: 03/05/25 <Concepcion Braswell PA-C - Last Filed: 03/05/25 21:23> Consultation #2: Spoke with Dr. Damico who will consult <Concepcion Braswell PA-C - Last Filed: 03/05/25 21:23> Date: 03/05/25 <DAMIEN Pillai Last Filed: 03/05/25 21:23> Vital Signs Vital signs: Vital Signs Temperature 97.3 F L 03/05/25 13:47 Pulse Rate 116 H 03/05/25 13:47 Respiratory Rate 18 03/05/25 13:47 Blood Pressure 163/103 H 03/05/25 13:47 Pulse Oximetry 100 03/05/25 13:47 Oxygen Delivery Room Air 03/05/25 13:47 Temperature 99.0 F 03/06/25 16:00 Pulse Rate 89 03/06/25 16:00 Respiratory Rate 23 H 03/06/25 16:00 Blood Pressure 164/71 H 03/06/25 16:00 Pulse Oximetry 100 03/06/25 16:00 Oxygen Delivery Room Air 03/06/25 12:00 <Concepcion Braswell PA-C - Last Filed: 03/05/25 21:23> Vital Signs Temperature 97.3 F L 03/05/25 13:47 Pulse Rate 116 H 03/05/25 13:47 Respiratory Rate 18 03/05/25 13:47 Blood Pressure 163/103 H 03/05/25 13:47 Pulse Oximetry 100 03/05/25 13:47 Oxygen Delivery Room Air 03/05/25 13:47 Temperature 99.0 F 03/06/25 16:00 Pulse Rate 89 03/06/25 16:00 Respiratory Rate 23 H 03/06/25 16:00 Blood Pressure 164/71 H 03/06/25 16:00 Pulse Oximetry 100 03/06/25 16:00 Oxygen Delivery Room Air 03/06/25 12:00 <Walter King MD - Last Filed: 03/06/25 19:30> MDM - Abdominal Pain MDM Narrative Medical decision making narrative: Patient presents the emergency department for abdominal discomfort, decreased appetite, nausea. Reports she has not been to her PCP in years, she has history of diabetes and has not been taking any medications. Tachycardic upon arrival, this normalized with IV fluids. Patient is afebrile and nontoxic appearing. Cbc without leukocytosis. Metabolic panel with blood sugar of 336. Hemoglobin A1c is 12. Beta hydroxybutyrate 7.59. Bicarb of 7, anion gap of 25. 4+ ketones in the urine. No signs of infection. CT abdomen pelvis shows several incidental findings including a pulmonary nodule, cholelithiasis, chronic UPJ obstruction, nephrolithiasis. Patient was hydrated with 2 L of IV fluids. Started on insulin drip. Patient updated on her workup and need for admission. Spoke with hospitalist about patient and workup who accepts admission. Spoke with shop firer/fireman who will consult <Concepcion Braswell PA-C - Last Filed: 03/05/25 21:23> Differential Diagnosis Differential diagnosis: Likely abdominal pain, gastroenteritis, small bowel obstruction and other (thrush, diabetes, DKA) <Concepcion Braswell PA-C - Last Filed: 03/05/25 21:23> Lab Data Attestation: I reviewed the patient's lab results. <Concepcion Braswell PA-C - Last Filed: 03/05/25 21:23> Result diagrams: 03/06/25 02:55 03/06/25 10:33 <Concepcion Braswell PA-C - Last Filed: 03/05/25 21:23> Labs: Lab Results 03/05/25 03/05/25 03/05/25 Range/Units 15:41 18:22 18:43 WBC 9.4 (4.5-10.0) K/mm3 RBC 5.07 (4.2-5.4) M/mm3 Hgb 15.0 D (12.0-15.0) g/dL Hct 45.5 (37.0-47.0) % MCV 89.7 (80-100) fl MCH 29.6 (26-34) pg MCHC 33.0 (32-36) g/dl RDW 12.4 (11.5-14.5) % Plt Count 524 H D (150-375) k/mm3 MPV 9.0 (7.4-10.4) fl Immature Gran % (Auto) 0.6 H (0-0.5) % Neut % (Auto) 65.2 (45.5-73.1) % Lymph % (Auto) 24.0 (18.3-44.2) % [place] % (Auto) 9.5 H (2.6-8.5) % Eos % (Auto) 0.2 (0-4.4) % Baso % (Auto) 0.5 (0.2-1.2) % Lymph # (Auto) 2.25 (0.9-3.2) K/mm3 [place] # (Auto) 0.9 H (0.1-0.6) K/mm3 Eos # (Auto) 0.0 (0-0.3) K/mm3 Baso # (Auto) 0.1 (0.0-0.1) K/mm3 Abs Immat Gran (auto) 0.06 H (0.00-0.031) K/mm3 Absolute Neuts (auto) 6.1 (1.3-6.7) K/mm3 Absolute Nucleated RBC 0.000 (0.0-0.012) K/mm3 Nucleated RBC % 0.0 (0.0-0.2) % Methemoglobin 0.3 (0-1.5) %THb Sodium 132 L (137-145) mmol/L Potassium 4.4 (3.4-5.0) mmol/L Chloride 100 (98-107) mmol/L Carbon Dioxide 7 L (22-30) mmol/L Anion Gap 25 H (4-12) mmol/L BUN 13 (7-17) mg/dL Creatinine 0.60 L (0.7-1.0) mg/dL Estim Creat Clear Calc 65 ml/min Estimated GFR > 60 (59 - ) Glucose 336 H (65-110) mg/dL POC Capillary Glucose (65-105) mg/dl Hemoglobin A1c 12.0 H (<5.7) % Calcium 10.9 H (8.4-10.2) mg/dL Phosphorus 2.5 (2.5-4.5) mg/dL Magnesium 2.1 (1.6-2.3) mg/dL Total Bilirubin 1.0 (0.2-1.3) mg/dL AST 31 (14-36) U/L ALT 30 (6-35) U/L Alkaline Phosphatase 109 (38-126) U/L Total Protein 8.5 H (6.3-8.2) g/dL Albumin 4.3 (3.5-5.1) g/dL Lipase 54 (23-300) U/L Beta-Hydroxybutyrate/Acetoacetate 7.59 H (0.02-0.27) mmol/L Urine Color Yellow (Yellow) Urine Appearance Clear (Clear) Urine pH 5.0 (5.0-9.0) Ur Specific [place] 1.044 H (1.001-1.035) Urine Protein Trace (Negative) mg/dL Urine Glucose (UA) 3+ H (Negative) mg/dL Urine Ketones 4+ H (Negative) mg/dL Ur Blood (Man) Trace (Negative) Urine Nitrate Negative (Negative) Urine Bilirubin Negative (Negative) Urine Urobilinogen 0.2 (<2.0) mg/dL Leukocyte Esterase Rfl Negative (Negative) ETHEL/UL Urine RBC 0-2 (0-2) /hpf Urine WBC 0-5 (0-3) /hpf Ur Squamous Epith Cells None seen (Few) /hpf Urine Bacteria None seen /hpf Urine Casts 3-5 03/05/25 03/05/25 Range/Units 18:56 20:13 WBC (4.5-10.0) K/mm3 RBC (4.2-5.4) M/mm3 Hgb (12.0-15.0) g/dL Hct (37.0-47.0) % MCV (80-100) fl MCH (26-34) pg MCHC (32-36) g/dl RDW (11.5-14.5) % Plt Count (150-375) k/mm3 MPV (7.4-10.4) fl Immature Gran % (Auto) (0-0.5) % Neut % (Auto) (45.5-73.1) % Lymph % (Auto) (18.3-44.2) % [place] % (Auto) (2.6-8.5) % Eos % (Auto) (0-4.4) % Baso % (Auto) (0.2-1.2) % Lymph # (Auto) (0.9-3.2) K/mm3 [place] # (Auto) (0.1-0.6) K/mm3 Eos # (Auto) (0-0.3) K/mm3 Baso # (Auto) (0.0-0.1) K/mm3 Abs Immat Gran (auto) (0.00-0.031) K/mm3 Absolute Neuts (auto) (1.3-6.7) K/mm3 Absolute Nucleated RBC (0.0-0.012) K/mm3 Nucleated RBC % (0.0-0.2) % Methemoglobin (0-1.5) %THb Sodium (137-145) mmol/L Potassium (3.4-5.0) mmol/L Chloride (98-107) mmol/L Carbon Dioxide (22-30) mmol/L Anion Gap (4-12) mmol/L BUN (7-17) mg/dL Creatinine (0.7-1.0) mg/dL Estim Creat Clear Calc ml/min Estimated GFR (59 - ) Glucose (65-110) mg/dL POC Capillary Glucose 258 H 177 H (65-105) mg/dl Hemoglobin A1c (<5.7) % Calcium (8.4-10.2) mg/dL Phosphorus (2.5-4.5) mg/dL Magnesium (1.6-2.3) mg/dL Total Bilirubin (0.2-1.3) mg/dL AST (14-36) U/L ALT (6-35) U/L Alkaline Phosphatase (38-126) U/L Total Protein (6.3-8.2) g/dL Albumin (3.5-5.1) g/dL Lipase (23-300) U/L Beta-Hydroxybutyrate/Acetoacetate (0.02-0.27) mmol/L Urine Color (Yellow) Urine Appearance (Clear) Urine pH (5.0-9.0) Ur Specific [place] (1.001-1.035) Urine Protein (Negative) mg/dL Urine Glucose (UA) (Negative) mg/dL Urine Ketones (Negative) mg/dL Ur Blood (Man) (Negative) Urine Nitrate (Negative) Urine Bilirubin (Negative) Urine Urobilinogen (<2.0) mg/dL Leukocyte Esterase Rfl (Negative) ETHEL/UL Urine RBC (0-2) /hpf Urine WBC (0-3) /hpf Ur Squamous Epith Cells (Few) /hpf Urine Bacteria /hpf Urine Casts <Concepcion Braswell PA-C - Last Filed: 03/05/25 21:23> Lab Results 03/05/25 03/05/25 03/05/25 Range/Units 15:41 18:22 18:43 WBC 9.4 (4.5-10.0) K/mm3 RBC 5.07 (4.2-5.4) M/mm3 Hgb 15.0 D (12.0-15.0) g/dL Hct 45.5 (37.0-47.0) % MCV 89.7 (80-100) fl MCH 29.6 (26-34) pg MCHC 33.0 (32-36) g/dl RDW 12.4 (11.5-14.5) % Plt Count 524 H D (150-375) k/mm3 MPV 9.0 (7.4-10.4) fl Immature Gran % (Auto) 0.6 H (0-0.5) % Neut % (Auto) 65.2 (45.5-73.1) % Lymph % (Auto) 24.0 (18.3-44.2) % [place] % (Auto) 9.5 H (2.6-8.5) % Eos % (Auto) 0.2 (0-4.4) % Baso % (Auto) 0.5 (0.2-1.2) % Lymph # (Auto) 2.25 (0.9-3.2) K/mm3 [place] # (Auto) 0.9 H (0.1-0.6) K/mm3 Eos # (Auto) 0.0 (0-0.3) K/mm3 Baso # (Auto) 0.1 (0.0-0.1) K/mm3 Abs Immat Gran (auto) 0.06 H (0.00-0.031) K/mm3 Absolute Neuts (auto) 6.1 (1.3-6.7) K/mm3 Absolute Nucleated RBC 0.000 (0.0-0.012) K/mm3 Nucleated RBC % 0.0 (0.0-0.2) % Methemoglobin 0.3 (0-1.5) %THb Sodium 132 L (137-145) mmol/L Potassium 4.4 (3.4-5.0) mmol/L Chloride 100 (98-107) mmol/L Carbon Dioxide 7 L (22-30) mmol/L Anion Gap 25 H (4-12) mmol/L BUN 13 (7-17) mg/dL Creatinine 0.60 L (0.7-1.0) mg/dL Estim Creat Clear Calc 65 ml/min Estimated GFR > 60 (59 - ) Glucose 336 H (65-110) mg/dL POC Capillary Glucose (65-105) mg/dl Hemoglobin A1c 12.0 H (<5.7) % Calcium 10.9 H (8.4-10.2) mg/dL Phosphorus 2.5 (2.5-4.5) mg/dL Magnesium 2.1 (1.6-2.3) mg/dL Total Bilirubin 1.0 (0.2-1.3) mg/dL AST 31 (14-36) U/L ALT 30 (6-35) U/L Alkaline Phosphatase 109 (38-126) U/L Total Protein 8.5 H (6.3-8.2) g/dL Albumin 4.3 (3.5-5.1) g/dL Lipase 54 (23-300) U/L Beta-Hydroxybutyrate/Acetoacetate 7.59 H (0.02-0.27) mmol/L Urine Color Yellow (Yellow) Urine Appearance Clear (Clear) Urine pH 5.0 (5.0-9.0) Ur Specific [place] 1.044 H (1.001-1.035) Urine Protein Trace (Negative) mg/dL Urine Glucose (UA) 3+ H (Negative) mg/dL Urine Ketones 4+ H (Negative) mg/dL Ur Blood (Man) Trace (Negative) Urine Nitrate Negative (Negative) Urine Bilirubin Negative (Negative) Urine Urobilinogen 0.2 (<2.0) mg/dL Leukocyte Esterase Rfl Negative (Negative) ETHEL/UL Urine RBC 0-2 (0-2) /hpf Urine WBC 0-5 (0-3) /hpf Ur Squamous Epith Cells None seen (Few) /hpf Urine Bacteria None seen /hpf Urine Casts 3-5 03/05/25 03/05/25 Range/Units 18:56 20:13 WBC (4.5-10.0) K/mm3 RBC (4.2-5.4) M/mm3 Hgb (12.0-15.0) g/dL Hct (37.0-47.0) % MCV (80-100) fl MCH (26-34) pg MCHC (32-36) g/dl RDW (11.5-14.5) % Plt Count (150-375) k/mm3 MPV (7.4-10.4) fl Immature Gran % (Auto) (0-0.5) % Neut % (Auto) (45.5-73.1) % Lymph % (Auto) (18.3-44.2) % [place] % (Auto) (2.6-8.5) % Eos % (Auto) (0-4.4) % Baso % (Auto) (0.2-1.2) % Lymph # (Auto) (0.9-3.2) K/mm3 [place] # (Auto) (0.1-0.6) K/mm3 Eos # (Auto) (0-0.3) K/mm3 Baso # (Auto) (0.0-0.1) K/mm3 Abs Immat Gran (auto) (0.00-0.031) K/mm3 Absolute Neuts (auto) (1.3-6.7) K/mm3 Absolute Nucleated RBC (0.0-0.012) K/mm3 Nucleated RBC % (0.0-0.2) % Methemoglobin (0-1.5) %THb Sodium (137-145) mmol/L Potassium (3.4-5.0) mmol/L Chloride (98-107) mmol/L Carbon Dioxide (22-30) mmol/L Anion Gap (4-12) mmol/L BUN (7-17) mg/dL Creatinine (0.7-1.0) mg/dL Estim Creat Clear Calc ml/min Estimated GFR (59 - ) Glucose (65-110) mg/dL POC Capillary Glucose 258 H 177 H (65-105) mg/dl Hemoglobin A1c (<5.7) % Calcium (8.4-10.2) mg/dL Phosphorus (2.5-4.5) mg/dL Magnesium (1.6-2.3) mg/dL Total Bilirubin (0.2-1.3) mg/dL AST (14-36) U/L ALT (6-35) U/L Alkaline Phosphatase (38-126) U/L Total Protein (6.3-8.2) g/dL Albumin (3.5-5.1) g/dL Lipase (23-300) U/L Beta-Hydroxybutyrate/Acetoacetate (0.02-0.27) mmol/L Urine Color (Yellow) Urine Appearance (Clear) Urine pH (5.0-9.0) Ur Specific [place] (1.001-1.035) Urine Protein (Negative) mg/dL Urine Glucose (UA) (Negative) mg/dL Urine Ketones (Negative) mg/dL Ur Blood (Man) (Negative) Urine Nitrate (Negative) Urine Bilirubin (Negative) Urine Urobilinogen (<2.0) mg/dL Leukocyte Esterase Rfl (Negative) ETHEL/UL Urine RBC (0-2) /hpf Urine WBC (0-3) /hpf Ur Squamous Epith Cells (Few) /hpf Urine Bacteria /hpf Urine Casts <Walter King MD - Last Filed: 03/06/25 19:30> ABG Data ABG results: 03/05/25 18:22 Puncture Site Right brachial ABG pH 7.332 L ABG pCO2 18.6 L* ABG pO2 107.1 H ABG PO2/FiO2 Ratio 5.10 ABG HCO3 9.6 L ABG O2 Saturation 97.7 ABG O2 Content 18.6 ABG Base Excess -13.8 A-a Gradient 20.4 Oxyhemoglobin 97.4 Carboxyhemoglobin 0.4 Reduced Hemoglobin 1.9 Total Hemoglobin 13.5 O2 Delivery Device Room air O2 Liters/Min Not Reportable FiO2 21 <Concepcion Braswell PA-C - Last Filed: 03/05/25 21:23> 03/05/25 18:22 Puncture Site Right brachial ABG pH 7.332 L ABG pCO2 18.6 L* ABG pO2 107.1 H ABG PO2/FiO2 Ratio 5.10 ABG HCO3 9.6 L ABG O2 Saturation 97.7 ABG O2 Content 18.6 ABG Base Excess -13.8 A-a Gradient 20.4 Oxyhemoglobin 97.4 Carboxyhemoglobin 0.4 Reduced Hemoglobin 1.9 Total Hemoglobin 13.5 O2 Delivery Device Room air O2 Liters/Min Not Reportable FiO2 21 <Walter King MD - Last Filed: 03/06/25 19:30> Imaging Data Radiologist's impression: ITS Impressions Abdomen/Pelvis CT 03/05/25 18:59 IMPRESSION: 4 mm right middle lobe pulmonary nodule, which requires no follow-up unless the patient is at high risk, in which case consider an optional CT in 12 months. Cholelithiasis, without inflammatory changes or bile duct dilation. Prominent bilateral renal pelves, may reflect a degree of chronic UPJ obstruction. 4 mm right midpole nephrolith. No evidence of obstructive uropathy. Distended urinary bladder, correlate for symptoms of urinary retention. <Concepcion Braswell PA-C - Last Filed: 03/05/25 21:23> ITS Impressions Abdomen/Pelvis CT 03/05/25 18:59 IMPRESSION: 4 mm right middle lobe pulmonary nodule, which requires no follow-up unless the patient is at high risk, in which case consider an optional CT in 12 months. Cholelithiasis, without inflammatory changes or bile duct dilation. Prominent bilateral renal pelves, may reflect a degree of chronic UPJ obstruction. 4 mm right midpole nephrolith. No evidence of obstructive uropathy. Distended urinary bladder, correlate for symptoms of urinary retention. <Walter King MD - Last Filed: 03/06/25 19:30> Critical Care Time Critical Care Time Critical Care Time: Yes <Concepcion Braswell PA-C - Last Filed: 03/05/25 21:23> Total Critical Care Time: 35 <Concepcion Braswell PA-C - Last Filed: 03/05/25 21:23> Discharge Plan Discharge Clinical Impression: Oropharyngeal candidiasis, Pulmonary nodule DKA, type 2 Qualifiers: Diabetes mellitus complication detail: without coma Qualified Code(s): E11.10 - Type 2 diabetes mellitus with ketoacidosis without coma <Concepcion Braswell PA-C - Last Filed: 03/05/25 21:23> Patient Disposition: Still a Patient <Concepcion Braswell PA-C - Last Filed: 03/05/25 21:23> Condition: Serious <DAMIEN Pillai Last Filed: 03/05/25 21:23>
[2025-03-05] MEDS: SODIUM CHLORIDE 0.9% IV 1,000 ML 999 ML IV CONT (16:16)
[2025-03-05] MEDS: ONDANSETRON INJ 4 MG/2 ML VIAL IV PUSH (16:17)
[2025-03-05] MEDS: FAMOTIDINE 20 MG/2 ML VIAL IV PUSH (16:17)
[2025-03-05 16:20] LABS: Magnesium 2.1 mg/dL (1.6-2.3)
[2025-03-05 16:22] LABS: Hemoglobin A1C 12.0 % (<5.7)
--- NOTE | 2025-03-05 16:28 | PC.NURSE ---
patient states that she does not want a catheter to obtain urine sample, and will attempt to provide a urine sample after iv fluids finish infusing
[2025-03-05 16:47] LABS: Beta-Hydroxybutyrate/Acetoacetate 7.59 mmol/L (0.02-0.27)
[2025-03-05] MEDS: FLUCONAZOLE 100 MG TABLET 200 MG PO (17:32)
[2025-03-05] MEDS: LACTATED RINGERS 1,000 ML 999 ML IV CONT (17:32)
--- NOTE | 2025-03-05 17:50 | PCRCNOTE ---
ABG'S delayed do to pt in CAT SCAN.
[2025-03-05 18:27] LABS: Alveolar/Arterial O2 Gradient 20.4 mmHg; Carboxyhemoglobin 0.4 % THb (0-2.0); Fractional Inspired Oxygen 21 %; HCO3 ABG 9.6 mEq/l (22.0-26.0); Methemoglobin ABG 0.3 %THb (0-1.5); Oxygen Content ABG 18.6 %vol (16.0-22.0); Oxygen Saturation ABG 97.7 % (95.0-100.0); PO2 ABG 107.1 mmHg (80.0-100.0); PO2 FiO2 Ratio Arterial Blood 5.10 %; Reduced Hemoglobin 1.9 %THb (0-5.0)
[2025-03-05 18:29] LABS: PCO2 ABG 18.6 mmHg (35.0-45.0); Site Drawn RIGHT BRACHIAL
[2025-03-05 18:54] LABS: Add Urine Microscopic? YES; Appearance Urine Clear (Clear); Glucose Urine UA 3+ mg/dL (Negative); Leukocyte Esterase Ur Negative LEU/UL (Negative); Nitrate Urine Negative (Negative); Specific Grav Ur 1.044 (1.001-1.035)
[2025-03-05] MEDS: INSULIN HUMAN REGULAR (*BKC) 100 UNITS/ML 8 UNITS IV PUSH (19:04)
[2025-03-05] MEDS: INSULIN HUMAN REGULAR (*BKC) 100 UNITS in SODIUM CHLORIDE 0.9% IV 99 ML 6 UNITS IV CONT (19:05)
--- NOTE | 2025-03-05 20:15 | ECG_ITS ---
Test Date: 2025-03-05 20:33:10 Measurements Intervals Lillian Rate: 102 P: 11 [place]: 136 QRS: -29 QRSD: 101 T: 74 QT: 343 QTc: 448 Interpretive Statements SINUS TACHYCARDIA LEFT VENTRICULAR HYPERTROPHY WITH ST-T CHANGE MINIMAL Q WAVES- HIGH LATERAL LEADS CONSIDER INFERIOR INFARCT, AGE INDETERMINATE ANTEROLATERAL MYOCARDIAL INFARCTION , OF INDETERMINATE AGE BASELINE ARTIFACT- V5-V6 ABNORMAL ECG No previous ECG available for comparison Electronically Signed On 03-06-2025 06:11:48 CDT by Charan Purdy D.O.
--- NOTE | 2025-03-05 21:26 | P.HP_ITS ---
H&P: HPI History of Present Illness Date/Time: 03/05/25 21:26 Chief Complaint: Abdominal pain with nausea Narrative: This is a 64-year-old female patient with past medical history arthritis, hypertension, vitamin-D deficiency, obesity and gestational diabetes mellitus who admittedly has not seen a physician in years and does not take any current medications who comes to the emergency room today with complaints of having abdominal pain, nausea/vomiting and decreased appetite over the course of the past week. Patient states her appetite has been further determined by painful swallowing due to pain in her mouth. She denies any fevers. She denies any diarrhea. She denies any other acute complaints. In the emergency room it was obvious that patient presented with thrush. Workup was initiated showing unremarkable metabolic panel with exception of mildly low sodium 132 and glucose of 336. CBC with platelets of 524 otherwise no chronic anemia identified and no elevated white blood cell count. Magnesium is 2.1, phosphorus is 2.5, hemoglobin A1c is 12.0, beta hydroxybutyrate is 7.59, patient acidotic with pH of 7.332 on arterial blood gas, pCO2 of 18.6, PO2 of 107.1 and HC03 of 9.6. Her anion gap is 25. Patient was initiated on insulin drip protocol and is being admitted to ICU in the current setting with consult to hot top liner. CT abdomen and pelvis showing a 4 mm right middle lobe pulmonary nodule that will require further follow-up otherwise no acute findings. Review of Systems Review of Systems: All systems reviewed & are unremarkable except as noted in HPI and below PMFSH Past Medical History Medical History Obesity Degenerative joint disease of left hip Right knee DJD Nausea Degenerative joint disease (DJD) of hip Encounter for screening mammogram for breast cancer Screening for osteoporosis Osteoarthritis of hip Essential (primary) hypertension Type 2 diabetes mellitus Elevated blood pressure reading Vitamin D deficiency Fatigue Screening for lipoid disorders Screening for metabolic disorder Allergies Surgical History Surgical History S/P total hip arthroplasty History of arthroscopy of left knee History of section complicating Family History Family History Father Cancer Diabetes mellitus Hypertension Mother Diabetes mellitus Hypertension Depression Anxiety Sibling Diabetes mellitus Hypertension Social History Social History Social History: Caffeine-coffee Smoking status: Never smoker Alcohol intake: never Substance use: never Substance use type: does not use Living arrangements: with family Additional living arrangements comments: [facility] Gender identity (if verbalized by the patient): Female Spiritual care concerns: No Meds Home Medications and Allergies Home Medications ?Medication ?Instructions ?Recorded ?Confirmed ?Type methylprednisolone 4 mg tablets in See Rx Instructions PO .COMPLEX 03/03/25 Rx a dose pack (Medrol (Ashish)) #21 ea ondansetron 8 mg disintegrating 8 mg PO Q8H PRN nausea and 03/03/25 Rx tablet vomiting 3 days #10 tabs Allergies Allergy/AdvReac Type Severity Reaction Status Date / Time latex Allergy Intermediate REDNESS, Verified 03/03/25 16:39 RASH Penicillins AdvReac Intermediate DECREASED Verified 03/03/25 16:39 HEART RATE fentanyl AdvReac Mild DIZZINESS, Verified 03/03/25 16:39 HEADACHE Vital Signs Vital Signs - 24 hr 03/05/25 13:47 03/05/25 16:06 03/05/25 20:04 Temperature 97.3 F L 97.4 F L Pulse Rate 116 H 106 H 103 H Respiratory Rate 18 19 20 Blood Pressure 163/103 H 168/93 H Pulse Oximetry 100 100 100 Oxygen Delivery Room Air 03/05/25 20:22 03/05/25 20:30 Temperature Pulse Rate 103 H 104 H Respiratory Rate 18 20 Blood Pressure 170/80 H Pulse Oximetry 100 100 Oxygen Delivery Exam Const: General: no acute distress Other: Female appearing older than stated age lying supine on stretcher at this time in no acute distress. She appears acutely ill. HENMT: Mouth: Yes Abnormal oral and palatal mucosa present white patches (Thic k white plaques consistent with thrush ) Eyes: General: appearance normal, both eyes and all related structures Sclera: sclerae normal Pupils: Equal, round and reactive pupils present EOM: EOMs intact bilaterally Neck: Neck: supple and no JVD Thyroid: thyroid normal Lymphatic: lymphadenopathy not noted Resp: Effort & Inspection: normal respiratory effort Auscultation: clear to auscultation bilaterally Cardio: Rate: tachycardic Rhythm: regular rhythm Heart sounds: no gallops, no murmurs and no rubs GI: GI Palp: Yes Soft to palpation, Yes Tenderness to palpation present (GI) (Diffuse, nonfocal) and No Guarding due to palpation present (GI) Auscultation: normal bowel sounds Skin: General skin exam: normal color, no rashes or lesions noted and no erythema Lesions: no lesions noted Rashes: no rashes noted Wounds: no wounds Neuro: Speech: normal speech Motor exam (neuro): 5/5 motor strength present throughout and Normal motor muscle tone present throughout Sensory Exam: normal sensation Extrem: General: normal to inspection, no edema and no pedal edema Psych: Mental Status: mental status grossly normal Affect: normal affect H&P: Results Labs Labs: Short CBC 03/05/25 Range/Units 15:41 WBC 9.4 (4.5-10.0) K/mm3 Hgb 15.0 D (12.0-15.0) g/dL Hct 45.5 (37.0-47.0) % Plt Count 524 H D (150-375) k/mm3 BMP 03/05/25 15:41 Sodium 132 L Potassium 4.4 Chloride 100 Carbon Dioxide 7 L BUN 13 Creatinine 0.60 L Glucose 336 H Calcium 10.9 H Liver Function 03/05/25 Range/Units 15:41 Total Bilirubin 1.0 (0.2-1.3) mg/dL AST 31 (14-36) U/L ALT 30 (6-35) U/L Alkaline Phosphatase 109 (38-126) U/L Albumin 4.3 (3.5-5.1) g/dL Urine 03/05/25 Range/Units 18:43 Urine Color Yellow (Yellow) Urine Appearance Clear (Clear) Urine pH 5.0 (5.0-9.0) Ur Specific [place] 1.044 H (1.001-1.035) Urine Protein Trace (Negative) mg/dL Urine Glucose (UA) 3+ H (Negative) mg/dL Assessment and Plan Assessment and plan (1) DKA, type 2: Qualifiers: Diabetes mellitus complication detail: without coma Qualified Code(s): E11.10 - Type 2 diabetes mellitus with ketoacidosis without coma Code(s): E11.10 - Type 2 diabetes mellitus with ketoacidosis without coma Status: Acute Assessment and Plan: * Placed in ICU * Consult hot top liner * Insulin drip initiated with correlational orders for hypoglycemic protocol and fluid replacement * Patient received 1 L of LR and a L of normal saline in the ER * Consult dietitian * Consult community educator * Glucose checks per insulin drip protocol * Monitor and trend labs and vital signs * Check Lipid panel and TSH Miller (2) Essential (primary) hypertension: Code(s): I10 - Essential (primary) hypertension Status: Acute Assessment and Plan: * Suspect acute on chronic as patient does have historical diagnosis, however she is not on any medications. * Initiate treatment with lisinopril 20 mg daily. * PRN Hydralazine 10 mg IV ordered with parameters of systolic greater than 180 and diastolic greater than 90 q.8 hours p.r.n. * Monitor and trend labs and vital signs * Check lipid panel and TSH cascade (3) Oropharyngeal candidiasis: Code(s): B37.0 - Candidal stomatitis Status: Acute Assessment and Plan: * Continue Diflucan daily * Start nystatin oral 500,000 units QID (4) Osteoarthritis of hip: Qualifiers: Osteoarthritis type: primary Laterality: right Qualified Code(s): M16.11 - Unilateral primary osteoarthritis, right hip Code(s): M16.9 - Osteoarthritis of hip, unspecified Status: Chronic Assessment and Plan: * Treat pain as needed. Quality VTE Prophylaxis VTE prophylaxis: pharmacologic ordered Hospitalist [facility] Advance Care Plan I have confirmed that the patient's Advanced Care Plan is present, code status is documented, or surrogate decision maker is listed in patient medical record.: Yes Medication Reconciliation I have utilized all available resources to obtain, update and review the patients current medications (includes all prescriptions, OTC, herbals, cannabis, and nutritional supplements).: Yes
--- NOTE | 2025-03-05 21:27 | PC.NURSE ---
This patient, Sarahi Enciso, was admitted to Intensive Care Unit-8. Patient/family oriented to hospital policies and general routines including ID bracelet, bed and alarms, visiting hours, pain management, procedures, bathroom and other care routines, personal items, smoking policy, room service/diet, and visiting hours. Information on how to activate the Rapid Response Team has been discussed. Patient/Family are encouraged to report perceived risks to care and to ask questions if they do not understand what they are told or what they should do.
[2025-03-05 21:30] LABS: MRSA (PCR) NOT DETECTED (NOT DETECTE)
[2025-03-05] MEDS: KCL 20 MEQ/D5/0.45% SOD CHL 1,000 ML 150 ML IV CONT (22:02)
[2025-03-05] MEDS: ENOXAPARIN 40 MG/0.4 ML SYRINGE SUB-Q (22:09)
[2025-03-05 23:41] LABS: Anion Gap 14 mmol/L (4-12); Blood Urea Nitrogen 11 mg/dL (7-17); Calcium 9.8 mg/dL (8.4-10.2); Carbon Dioxide 14 mmol/L (22-30); Chloride 104 mmol/L (98-107); Cholesterol 132 mg/dL (0-200); Estimated CRCL calculation 83 ml/min; Estimated Glomerular Filt Rate > 60; Glucose 129 mg/dL (65-110); HDL Direct 34 mg/dL; Potassium 3.3 mmol/L (3.4-5.0); Sodium 132 mmol/L (137-145); Triglycerides 105 mg/dL (<150)
[2025-03-06] VITALS (10 sets, daily range): BP systolic 127–164; BP diastolic 63–72; PULSE 76–91; RESP 15–23; TEMP 36.2–37.2; O2SAT 97–100; BMI 27.5
[2025-03-06] MEDS: SODIUM CHLORIDE 0.9% IV 1,000 ML 150 ML IV CONT (00:46)
[2025-03-06] MEDS: traMADol HCL (*CRX) 50 MG TABLET PO ×3 (01:37→20:36)
[2025-03-06 03:01] LABS: Hematocrit 37.0 % (37.0-47.0); Hemoglobin 12.5 g/dL (12.0-15.0); Immature Granulocyte Percent A 0.6 % (0-0.5); Lymphocytes Absolute Auto 1.92 K/mm3 (0.9-3.2); Mean Corpuscular HGB Conc 33.8 g/dl (32-36); Mean Corpuscular Hemoglobin 30.3 pg (26-34); Mean Corpuscular Volume 89.6 fl (80-100); Nucleated Red Blood Cells Absolute Auto 0.000 K/mm3 (0.0-0.012); Nucleated Red Blood Cells Perc 0.0 % (0.0-0.2); Platelet Count Result 403 k/mm3 (150-375); Red Blood Count 4.13 M/mm3 (4.2-5.4); White Blood Count 6.8 K/mm3 (4.5-10.0)
[2025-03-06 03:11] LABS: INR 1.2; Prothrombin Time 15.2 Seconds (11.1-14.7)
[2025-03-06 03:12] LABS: Partial Thromboplastin Time 35.2 Seconds (22.3-36.8)
[2025-03-06 03:33] LABS: Alanine Aminotransferase 26 U/L (6-35); Albumin Level 3.1 g/dL (3.5-5.1); Alkaline Phosphatase 78 U/L (38-126); Anion Gap 9 mmol/L (4-12); Aspartate Amino Transferase 28 U/L (14-36); Bilirubin,Total 0.7 mg/dL (0.2-1.3); Blood Urea Nitrogen 8 mg/dL (7-17); Calcium 9.5 mg/dL (8.4-10.2); Carbon Dioxide 15 mmol/L (22-30); Chloride 105 mmol/L (98-107); Estimated CRCL calculation 108 ml/min; Estimated Glomerular Filt Rate > 60; Glucose 229 mg/dL (65-110); Magnesium 1.7 mg/dL (1.6-2.3); Potassium 3.1 mmol/L (3.4-5.0); Sodium 129 mmol/L (137-145); Total Protein 6.1 g/dL (6.3-8.2)
[2025-03-06 04:41] LABS: Thyroid Stimulating Hormone Reflex 0.327 uIU/mL (0.465-4.68)
[2025-03-06] MEDS: KCL 20 MEQ/D5/0.45% SOD CHL 1,000 ML 150 ML IV CONT (05:28)
[2025-03-06 05:48] LABS: Alveolar/Arterial O2 Gradient 19.0 mmHg; Fractional Inspired Oxygen 21 %; HCO3 ABG 18.5 mEq/l (22.0-26.0); Oxygen Content ABG 18.1 %vol (16.0-22.0); Oxygen Saturation ABG 97.4 % (95.0-100.0); PCO2 ABG 30.1 mmHg (35.0-45.0); PO2 ABG 94.7 mmHg (80.0-100.0); PO2 FiO2 Ratio Arterial Blood 4.51 %
[2025-03-06 05:49] LABS: Modified Allen's Test Pass; Site Drawn RIGHT RADIAL
[2025-03-06 06:22] LABS: Free T4 Free Thyroxine Reflex 1.81 ng/dL (0.78-2.19)
[2025-03-06 07:04] LABS: Anion Gap 5 mmol/L (4-12); Blood Urea Nitrogen 8 mg/dL (7-17); Calcium 9.8 mg/dL (8.4-10.2); Carbon Dioxide 18 mmol/L (22-30); Chloride 104 mmol/L (98-107); Estimated CRCL calculation 116 ml/min; Estimated Glomerular Filt Rate > 60; Glucose 245 mg/dL (65-110); Potassium 3.4 mmol/L (3.4-5.0); Sodium 127 mmol/L (137-145)
[2025-03-06 07:27] LABS: Total Triiodothyronine (T3) 0.58 NG/ML (0.82-1.58)
[2025-03-06] MEDS: NYSTATIN 100,000 UNITS/ML SUSP 5 ML ORAL.SUSP PO ×3 (09:37→20:37)
[2025-03-06] MEDS: ENOXAPARIN 40 MG/0.4 ML SYRINGE SUB-Q (09:37)
[2025-03-06] MEDS: LACTATED RINGERS 500 ML IV CONT (09:37)
[2025-03-06] MEDS: FLUCONAZOLE 100 MG TABLET PO (09:38)
[2025-03-06 11:01] LABS: Anion Gap 7 mmol/L (4-12); Blood Urea Nitrogen 7 mg/dL (7-17); Calcium 9.7 mg/dL (8.4-10.2); Carbon Dioxide 19 mmol/L (22-30); Chloride 104 mmol/L (98-107); Estimated CRCL calculation 113 ml/min; Estimated Glomerular Filt Rate > 60; Glucose 248 mg/dL (65-110); Potassium 3.3 mmol/L (3.4-5.0); Sodium 130 mmol/L (137-145)
--- NOTE | 2025-03-06 12:15 | P.CONIN_ITS ---
Assessment and Plan Assessment and plan (1) DKA, type 2: Qualifiers: Diabetes mellitus complication detail: without coma Qualified Code(s): E11.10 - Type 2 diabetes mellitus with ketoacidosis without coma Code(s): E11.10 - Type 2 diabetes mellitus with ketoacidosis without coma Status: Acute Assessment and Plan: Patient presents with generalized weakness, abdominal pain, nausea, vomiting, decreased p.o. intake/appetite. Patient has history of diabetes type 2 but has not been taking her medications for many months, she has not seen a primary care doctor since 2021 -in the ER patient was found to have elevated blood sugars of 336, elevated anion gap metabolic acidosis, elevated beta hydroxybutyrate, UA showed ketones, proteins and glucose by no UTI -patient given 2 L IV fluid bolus, started on insulin infusion per DKA protocol -give additional IV fluids this morning -anion gap has closed, CO2 is improved, will transition to long-acting insulin and sliding scale insulin -appreciate blocker polishing and dietitian evaluation recommendations. -diabetic diet (2) Essential (primary) hypertension: Code(s): I10 - Essential (primary) hypertension Status: Acute Assessment and Plan: Continue home lisinopril (3) Oropharyngeal candidiasis: Code(s): B37.0 - Candidal stomatitis Status: Acute Assessment and Plan: Diflucan and nystatin swish and spit (4) Urinary retention: Code(s): R33.9 - Retention of urine, unspecified Status: Acute Assessment and Plan: Patient with urinary retention, had a purewick in place with poor urine output, bladder scan showed close to 1000 mL. -Martin catheter was inserted Plan DVT prophylaxis: Lovenox Stress ulcer prophylaxis: Famotidine Nutrition: Diabetic PT/OT to evaluate the patient Code Status: Full code Critical Care Time Spent: 49 minutes Due to a high probability of clinically significant, life threatening deterioration, the patient required my highest level of preparedness to intervene emergently and I personally spent this critical care time directly and personally managing the patient. This critical care time included obtaining a history; examining the patient; pulse oximetry; ordering and review of studies; arranging urgent treatment with development of a management plan; evaluation of patient's response to treatment; frequent reassessment; and discussions with other providers. It was exclusive of separately billable procedures and treating other patients and teaching time. Please see Assessment and Plan section and the rest of the note for further information on patient assessment and treatment This dictation may have been done utilizing a voice recognition system. Attempts have been made to correct errors. However, there may be uncorrected grammatical, spelling, and recognitions errors present. Leave Specialist Consult Note Consult date: 03/06/25 Reason for consult: Abdominal pain, nausea, vomiting, decreased p.o. intake/appetite due to trouble swallowing, DKA HPI: Sarahi Enciso is a 64 year old female with past medical history of type 2 diabetes, hypertension, do EGD, osteoarthritis, vitamin-D deficiency presented the ED on 03/05/2025 with complains of abdominal discomfort, nausea, vomiting, trouble swallowing. All these have been going on for a while but worsened over the last week. She was recently seen by urgent care for her left knee pain, was given a Medrol Dose pack. Patient also has a history of dental implants and has difficulty keeping them because they do not fit accurately. Patient also has been having trouble swallowing. Denies any fevers or chills, denies any diarrhea. In the ER patient was found to be in diabetic ketoacidosis with elevated blood sugars . WBC 9.4, hemoglobin 15.0, platelets 524. Sodium 132, potassium 4.4, chloride 100, CO2 7, anion gap 25, BUN 13, creatinine 0.60, blood sugars 336, hemoglobin A1c of 12.0, LFTs are within normal limits. Protein and albumin within normal limits. Lipase was 54, elevated beta hydroxybutyrate to 7.59. CT scan of the abdomen and pelvis showed 4 mm right middle lobe pulmonary nodule which requires no follow-up unless the patient is at high risk in which case considered optimal CT in 12 months. Cholelithiasis without inflammatory changes or bile duct dilatation. Prominent bilateral renal pelvis may reflect a degree of chronic UPJ obstruction. 4 mm right mid pole nephrolith. No evidence of obstructive uropathy. Distended urinary bladder correlates him to the urinary retention Patient was started on insulin infusion per DKA protocol in the ICU after receiving 2 L of IV fluids Patient seen examined this morning in the ICU, is awake, alert, states she feels slightly better, denies any shortness of breath, chest pain, abdominal pain, nausea vomiting. Patient states she is hungry. Hemodynamically stable, afebrile, decreased urine output. Patient does have a pure-wick in place. Hemodynamically stable, adequate O2 sats and afebrile at this time Review of Systems 2 Review of Systems: All systems reviewed & are unremarkable except as noted in HPI and below PMFSH Past Medical History Medical History Obesity Degenerative joint disease of left hip Right knee DJD Nausea Degenerative joint disease (DJD) of hip Encounter for screening mammogram for breast cancer Screening for osteoporosis Osteoarthritis of hip Essential (primary) hypertension Type 2 diabetes mellitus Elevated blood pressure reading Vitamin D deficiency Fatigue Screening for lipoid disorders Screening for metabolic disorder Allergies Surgical History Surgical History S/P total hip arthroplasty History of arthroscopy of left knee History of section complicating Family History Family History Father Cancer Diabetes mellitus Hypertension Mother Diabetes mellitus Hypertension Depression Anxiety Sibling Diabetes mellitus Hypertension Social History Social History Social History: Caffeine-coffee Smoking status: Never smoker Alcohol intake: never Substance use: never Substance use type: does not use Lack of Transportation: No Lack of Food: Never True Current Housing: I Have Housing Concerned About Future Housing: No Difficulty Paying Gas/Electric Bills: Decline to Answer Difficulty Paying for Meds: Decline to Answer Currently Unemployed: Decline to Answer Education: Decline to Answer Difficulty w/ Childcare or Family Care: Decline to Answer Living arrangements: with family Additional living arrangements comments: [facility] Gender identity (if verbalized by the patient): Female Spiritual care concerns: No Meds Home Medications and Allergies Home Medications ?Medication ?Instructions ?Recorded ?Confirmed ?Type No Home Medications 03/05/25 03/05/25 History Allergies Allergy/AdvReac Type Severity Reaction Status Date / Time latex Allergy Intermediate REDNESS, Verified 03/05/25 21:41 RASH Penicillins AdvReac Intermediate DECREASED Verified 03/05/25 21:41 HEART RATE and rash fentanyl AdvReac Mild DIZZINESS, Verified 03/05/25 21:41 HEADACHE Vital Signs Vital Signs - 24 hr 03/05/25 13:47 03/05/25 16:06 03/05/25 20:04 Temperature 97.3 F L 97.4 F L Pulse Rate 116 H 106 H 103 H Respiratory Rate 18 19 20 Blood Pressure 163/103 H 168/93 H Pulse Oximetry 100 100 100 Oxygen Delivery Room Air 03/05/25 20:22 03/05/25 20:30 03/05/25 21:30 Temperature Pulse Rate 103 H 104 H Respiratory Rate 18 20 Blood Pressure 170/80 H Pulse Oximetry 100 100 Oxygen Delivery Room Air 03/05/25 21:30 03/05/25 22:00 03/05/25 22:00 Temperature 99.0 F Pulse Rate 96 92 92 Respiratory Rate 20 17 Blood Pressure 160/77 H 173/64 H Pulse Oximetry 100 100 Oxygen Delivery 03/06/25 00:00 03/06/25 00:00 03/06/25 00:00 Temperature 98.8 F Pulse Rate 88 88 Respiratory Rate 20 Blood Pressure 156/64 H Pulse Oximetry 97 Oxygen Delivery Room Air 03/06/25 02:00 03/06/25 02:00 03/06/25 04:00 Temperature Pulse Rate 85 85 Respiratory Rate 20 Blood Pressure 155/69 H Pulse Oximetry 99 Oxygen Delivery Room Air 03/06/25 04:00 03/06/25 04:00 03/06/25 06:00 Temperature 98.4 F Pulse Rate 79 79 76 Respiratory Rate 15 16 Blood Pressure 133/66 136/67 Pulse Oximetry 98 98 Oxygen Delivery 03/06/25 08:00 03/06/25 08:00 03/06/25 08:00 Temperature 98.2 F Pulse Rate 87 89 89 Respiratory Rate 22 H 16 Blood Pressure 133/68 Pulse Oximetry 97 100 Oxygen Delivery Room Air 03/06/25 10:00 03/06/25 10:00 03/06/25 12:00 Temperature 97.7 F 97.9 F Pulse Rate 77 89 82 Respiratory Rate 19 16 Blood Pressure 160/72 H 142/64 H Pulse Oximetry 99 100 Oxygen Delivery Exam 2 Narrative: General: Pleasant female, in no acute distress HEENT:? Pupils equal and reactive, sclera is clear, dry oral mucosa, thrush seen on the tongue Neck:? Supple Respiratory: Clear to auscultation bilaterally, no wheezing, adequate air entry Cardiac:? S1-S2 normal, regular rate and rhythm Abdomen:? Soft, nontender, nondistended, hypoactive bowel sounds Extremities:? Palpable pedal pulses, no edema Neuro:? Patient is awake, alert, oriented x3, nonfocal, able to answer questions appropriately and follows simple commands extremities Skin:? Warm and dry Psych:? Flat affect, normal mentation Results Labs 03/06/25 02:55 03/06/25 10:33 Labs: Short CBC 03/05/25 03/06/25 Range/Units 15:41 02:55 WBC 9.4 6.8 (4.5-10.0) K/mm3 Hgb 15.0 D 12.5 (12.0-15.0) g/dL Hct 45.5 37.0 (37.0-47.0) % Plt Count 524 H D 403 H (150-375) k/mm3 BMP 03/05/25 03/05/25 03/06/25 15:41 22:00 02:55 Sodium 132 L 132 L 129 L Potassium 4.4 3.3 L 3.1 L Chloride 100 104 105 Carbon Dioxide 7 L 14 L 15 L BUN 13 11 8 Creatinine 0.60 L 0.46 L 0.34 L Glucose 336 H 129 H 229 H Calcium 10.9 H 9.8 9.5 03/06/25 03/06/25 06:50 10:33 Sodium 127 L 130 L Potassium 3.4 3.3 L Chloride 104 104 Carbon Dioxide 18 L 19 L BUN 8 7 Creatinine 0.31 L 0.32 L Glucose 245 H 248 H Calcium 9.8 9.7 Liver Function 03/05/25 03/06/25 Range/Units 15:41 02:55 Total Bilirubin 1.0 0.7 (0.2-1.3) mg/dL AST 31 28 (14-36) U/L ALT 30 26 (6-35) U/L Alkaline Phosphatase 109 78 (38-126) U/L Albumin 4.3 3.1 L (3.5-5.1) g/dL Urine 03/05/25 Range/Units 18:43 Urine Color Yellow (Yellow) Urine Appearance Clear (Clear) Urine pH 5.0 (5.0-9.0) Ur Specific [place] 1.044 H (1.001-1.035) Urine Protein Trace (Negative) mg/dL Urine Glucose (UA) 3+ H (Negative) mg/dL Quality VTE Prophylaxis VTE prophylaxis: pharmacologic ordered Hospitalist MIPS Advance Care Plan I have confirmed that the patient's Advanced Care Plan is present, code status is documented, or surrogate decision maker is listed in patient medical record.: Yes Medication Reconciliation I have utilized all available resources to obtain, update and review the patients current medications (includes all prescriptions, OTC, herbals, cannabis, and nutritional supplements).: Yes
[2025-03-06] MEDS: POTASSIUM CHLORIDE 20 MEQ PACKET (FOR LIQUID) 40 MEQ PO (12:27)
[2025-03-06] MEDS: INSULIN GLARGINE (*BKC) 100 UNITS/ML 25 UNITS SUB-Q (12:38)
[2025-03-06] MEDS: INSULIN ASPART (*BKC) 100 UNITS/ML SUB-Q ×2 (16:57→20:43)
[2025-03-06] MEDS: ACETAMINOPHEN 500 MG TABLET 1000 MG PO (16:57)
--- NOTE | 2025-03-06 17:51 | PC.NURSE ---
Report given to ARTEMIO Valdivia on [facility] @ 1750. Chart with appropriate documentation sent with patient as well as patient belongings. Family at bedside and aware of new room # 330.
--- NOTE | 2025-03-06 18:43 | PC.NURSE ---
pt transferred in to room 330 via bed, oriented to new room and environment, reviewed plan of care, at bedside
[2025-03-07] MEDS: ACETAMINOPHEN 500 MG TABLET 1000 MG PO ×3 (00:36→17:19)
[2025-03-07] MEDS: traMADol HCL (*CRX) 50 MG TABLET PO ×3 (02:59→21:00)
[2025-03-07 06:08] LABS: Hematocrit 38.6 % (37.0-47.0); Hemoglobin 13.2 g/dL (12.0-15.0); Immature Granulocyte Percent A 0.4 % (0-0.5); Lymphocytes Absolute Auto 1.71 K/mm3 (0.9-3.2); Mean Corpuscular HGB Conc 34.2 g/dl (32-36); Mean Corpuscular Hemoglobin 30.2 pg (26-34); Mean Corpuscular Volume 88.3 fl (80-100); Nucleated Red Blood Cells Absolute Auto 0.000 K/mm3 (0.0-0.012); Nucleated Red Blood Cells Perc 0.0 % (0.0-0.2); Platelet Count Result 372 k/mm3 (150-375); Red Blood Count 4.37 M/mm3 (4.2-5.4); White Blood Count 7.2 K/mm3 (4.5-10.0)
--- NOTE | 2025-03-07 06:15 | PC.NURSE ---
Pt called the nurse to report that she had new neck pain radiating to the right shoulder, right arm and back, Tylenol was administered and provider Terrence Goodman was notified, waiting for the patient to be seen, on re assess, pt was asleep.
[2025-03-07 06:35] LABS: Alanine Aminotransferase 38 U/L (6-35); Albumin Level 2.7 g/dL (3.5-5.1); Alkaline Phosphatase 84 U/L (38-126); Anion Gap 6 mmol/L (4-12); Aspartate Amino Transferase 41 U/L (14-36); Bilirubin,Total 0.7 mg/dL (0.2-1.3); Blood Urea Nitrogen 6 mg/dL (7-17); Calcium 9.6 mg/dL (8.4-10.2); Carbon Dioxide 24 mmol/L (22-30); Chloride 100 mmol/L (98-107); Estimated CRCL calculation 127 ml/min; Estimated Glomerular Filt Rate > 60; Glucose 207 mg/dL (65-110); Magnesium 1.7 mg/dL (1.6-2.3); Potassium 3.2 mmol/L (3.4-5.0); Sodium 130 mmol/L (137-145); Total Protein 5.7 g/dL (6.3-8.2)
--- NOTE | 2025-03-07 07:18 | P.PNIM_ITS ---
Progress Note: A&P Assessment and Plan (1) DKA, type 2: Qualifiers: Diabetes mellitus complication detail: without coma Qualified Code(s): E11.10 - Type 2 diabetes mellitus with ketoacidosis without coma Code(s): E11.10 - Type 2 diabetes mellitus with ketoacidosis without coma Status: Acute Assessment and Plan: -Patient presents with generalized weakness, abdominal pain, nausea, vomiting, decreased p.o. intake/appetite. Patient has history of diabetes type 2 but has not been taking her medications for many months, she has not seen a primary care doctor since 2021 -in the ER patient was found to have elevated blood sugars of 336, elevated anion gap metabolic acidosis, elevated beta hydroxybutyrate, UA showed ketones, proteins and glucose by no UTI -patient given 2 L IV fluid bolus, started on insulin infusion per DKA protocol -give additional IV fluids -anion gap has closed, CO2 is improved, transitioned to long-acting insulin and sliding scale insulin. Titrate PRN -appreciate life educator and dietitian evaluation recommendations. -diabetic diet - hemoglobin A1c - 12 (2) Essential (primary) hypertension: Code(s): I10 - Essential (primary) hypertension Status: Acute Assessment and Plan: -Continue home lisinopril (3) Oropharyngeal candidiasis: Code(s): B37.0 - Candidal stomatitis Status: Acute Assessment and Plan: -Diflucan and nystatin swish and spit (4) Urinary retention: Code(s): R33.9 - Retention of urine, unspecified Status: Acute Assessment and Plan: -Patient with urinary retention, had a purewick in place with poor urine output, bladder scan showed close to 1000 mL. -Martin catheter was inserted - voiding trial today (5) Weakness: Code(s): R53.1 - Weakness Status: Acute Assessment and Plan: - patient expressing BLE weakness likely due to knee pain and RUE weakness likely due to neck/shoulder pain - XR L knee with no acute fracture, medial and lateral tibiofemoral joint space narrowing, small suprapatellar joint effusion - check CTA head and neck, MRI brain given high stroke risk - check XR R knee - may consider further imaging of lumbar spine if no further cause for LE weakness is identified - PT/OT (6) Hypokalemia: Code(s): E87.6 - Hypokalemia Status: Acute Assessment and Plan: - K+ 3.2 - replacement ordered - recheck in AM (7) Neck pain: Code(s): M54.2 - Cervicalgia Status: Acute Assessment and Plan: -no meningeal signs - CTA head and neck ordered - pain control Subjective Date/time seen: 03/07/25 07:18 Interval history: Patient seen and examined at bedside. Expressing concern for weakness and neck pain. Patient has bilateral LE weakness and knee pain that she states has been going on for weeks. Review of Systems Review of Systems: All systems reviewed & are unremarkable except as noted in HPI and below Exam Narrative: General: NAD Eyes: EOMI ENT: neck supple Cardiovascular: Regular rate and rhythm Respiratory: Clear to auscultation, respirations even and unlabored on RA Gastrointestinal: Soft, non tender Genitourinary: no suprapubic tenderness Musculoskeletal: No edema Skin: warm, dry Neuro: Alert. Strength 3/5 in RUE, poor effort due to pain. Strength 3/5 in BLEs, poor effort due to pain. Face symmetric, speech clear. Psych: Mood appropriate Objective Data Vital Signs Vital Signs: Vital Signs - 24 hr 03/06/25 08:00 03/06/25 08:00 03/06/25 08:00 Temperature 98.2 F Pulse Rate 87 89 89 Respiratory Rate 22 H 16 Blood Pressure 133/68 Pulse Oximetry 97 100 Oxygen Delivery Room Air 03/06/25 10:00 03/06/25 10:00 03/06/25 12:00 Temperature 97.7 F 97.9 F Pulse Rate 77 89 82 Respiratory Rate 19 16 Blood Pressure 160/72 H 142/64 H Pulse Oximetry 99 100 Oxygen Delivery 03/06/25 12:00 03/06/25 12:00 03/06/25 14:00 Temperature 98.5 F Pulse Rate 80 90 90 Respiratory Rate 17 21 H Blood Pressure 153/71 H Pulse Oximetry 99 99 Oxygen Delivery Room Air 03/06/25 14:00 03/06/25 16:00 03/06/25 20:00 Temperature 99.0 F Pulse Rate 91 89 Respiratory Rate 23 H Blood Pressure 164/71 H Pulse Oximetry 100 Oxygen Delivery Room Air 03/06/25 21:39 Temperature 97.2 F L Pulse Rate 89 Respiratory Rate 18 Blood Pressure 127/63 Pulse Oximetry 98 Oxygen Delivery Intake/Output Intake/Output: Intake & Output 03/04/25 03/05/25 03/06/25 03/07/25 23:59 23:59 23:59 23:59 Intake Total 2014.6 2795.7 200 Output Total 1750 950 Balance 2014. 1045.7 -750 Meds/Results Medications: Active Medications Generic Name Dose Route Start Last Admin Trade Name Freq PRN Reason Stop Dose Admin Acetaminophen 1,000 mg 03/05/25 21:37 03/07/25 06:15 Acetaminophen 500 Mg Tablet PO 1,000 mg Q6H PRN Administration Mild Pain (1-3) or Fever Dextrose 12.5 gm 03/06/25 11:52 Dextrose 50% 25 Gm/50 Ml Syringe IV PUSH PRN PRN Hypoglycemia Protocol Enoxaparin Sodium 40 mg 03/05/25 21:40 03/06/25 09:37 Enoxaparin 40 Mg/0.4 Ml Syringe SUB-Q 40 mg DAILY JESUS Administration Fluconazole 100 mg 03/06/25 09:00 03/06/25 09:38 Fluconazole 100 Mg Tablet PO 100 mg QAM JESUS Administration Glucagon 1 mg 03/06/25 11:52 Glucagon For Inj 1 Mg Vial IM PRN PRN Hypoglycemia Protocol Glucose 15 gm 03/06/25 11:52 Glucose Oral Gel 15 Gm Of Glucse In 37.5 Gm Tube PO PRN PRN Hypoglycemia Protocol Hydralazine HCl 10 mg 03/05/25 21:36 Hydralazine Hcl 20 Mg/Ml Vial IV PUSH Q8H PRN Blood Pressure - High Dextrose 1,000 mls @ 100 mls/hr 03/06/25 11:52 Dextrose 5% 1,000 Ml IVPB PRN PRN Hypoglycemia Protocol Insulin Aspart 1 - 3 units 03/06/25 21:00 03/06/25 20:43 Insulin Aspart (*Bkc) 100 Units/Ml SUB-Q 2 units HS JESUS Administration Protocol Insulin Aspart 3 - 6 units 03/06/25 12:00 03/06/25 16:57 Insulin Aspart (*Bkc) 100 Units/Ml SUB-Q 4 units TIDWM JESUS Administration Protocol Insulin Glargine 25 units 03/07/25 09:00 Insulin Glargine (*Bkc) 100 Units/Ml SUB-Q DAILY JESUS Lisinopril 20 mg 03/05/25 21:40 03/06/25 09:37 Lisinopril 20 Mg Tablet PO 20 mg QAM JESUS Administration Nystatin 5 ml 03/06/25 09:00 03/06/25 20:37 Nystatin 100,000 Units/Ml Susp 5 Ml Oral.Susp PO 5 ml QID JESUS Administration Tramadol HCl 50 mg 03/05/25 21:37 03/07/25 02:59 Tramadol Hcl (*Crx) 50 Mg Tablet PO 50 mg Q6H PRN Administration Pain Rated 4-6 Radiology Results: ITS Impressions Abdomen/Pelvis CT 03/05/25 18:59 IMPRESSION: 4 mm right middle lobe pulmonary nodule, which requires no follow-up unless the patient is at high risk, in which case consider an optional CT in 12 months. Cholelithiasis, without inflammatory changes or bile duct dilation. Prominent bilateral renal pelves, may reflect a degree of chronic UPJ obstruction. 4 mm right midpole nephrolith. No evidence of obstructive uropathy. Distended urinary bladder, correlate for symptoms of urinary retention. Labs Labs: Laboratory Results - last 24 hr 03/06/25 03/06/25 03/06/25 02:55 07:29 08:32 WBC RBC Hgb Hct MCV MCH MCHC RDW Plt Count MPV Immature Gran % (Auto) Neut % (Auto) Lymph % (Auto) Bee % (Auto) Eos % (Auto) Baso % (Auto) Lymph # (Auto) Bee # (Auto) Eos # (Auto) Baso # (Auto) Abs Immat Gran (auto) Absolute Neuts (auto) Absolute Nucleated RBC Nucleated RBC % Sodium Potassium Chloride Carbon Dioxide Anion Gap BUN Creatinine Estim Creat Clear Calc Estimated GFR Glucose POC Capillary Glucose 235 H 255 H Calcium Phosphorus Magnesium Total Bilirubin AST ALT Alkaline Phosphatase Total Protein Albumin Total T3 0.58 L 03/06/25 03/06/25 03/06/25 09:32 10:30 10:33 WBC RBC Hgb Hct MCV MCH MCHC RDW Plt Count MPV Immature Gran % (Auto) Neut % (Auto) Lymph % (Auto) Bee % (Auto) Eos % (Auto) Baso % (Auto) Lymph # (Auto) Bee # (Auto) Eos # (Auto) Baso # (Auto) Abs Immat Gran (auto) Absolute Neuts (auto) Absolute Nucleated RBC Nucleated RBC % Sodium 130 L Potassium 3.3 L Chloride 104 Carbon Dioxide 19 L Anion Gap 7 BUN 7 Creatinine 0.32 L Estim Creat Clear Calc 113 Estimated GFR > 60 Glucose 248 H POC Capillary Glucose 254 H 277 H Calcium 9.7 Phosphorus Magnesium Total Bilirubin AST ALT Alkaline Phosphatase Total Protein Albumin Total T3 03/06/25 03/06/25 03/06/25 11:23 12:35 13:32 WBC RBC Hgb Hct MCV MCH MCHC RDW Plt Count MPV Immature Gran % (Auto) Neut % (Auto) Lymph % (Auto) Bee % (Auto) Eos % (Auto) Baso % (Auto) Lymph # (Auto) Bee # (Auto) Eos # (Auto) Baso # (Auto) Abs Immat Gran (auto) Absolute Neuts (auto) Absolute Nucleated RBC Nucleated RBC % Sodium Potassium Chloride Carbon Dioxide Anion Gap BUN Creatinine Estim Creat Clear Calc Estimated GFR Glucose POC Capillary Glucose 228 H 189 H 238 H Calcium Phosphorus Magnesium Total Bilirubin AST ALT Alkaline Phosphatase Total Protein Albumin Total T3 03/06/25 03/06/25 03/06/25 14:29 16:30 20:40 WBC RBC Hgb Hct MCV MCH MCHC RDW Plt Count MPV Immature Gran % (Auto) Neut % (Auto) Lymph % (Auto) Bee % (Auto) Eos % (Auto) Baso % (Auto) Lymph # (Auto) Bee # (Auto) Eos # (Auto) Baso # (Auto) Abs Immat Gran (auto) Absolute Neuts (auto) Absolute Nucleated RBC Nucleated RBC % Sodium Potassium Chloride Carbon Dioxide Anion Gap BUN Creatinine Estim Creat Clear Calc Estimated GFR Glucose POC Capillary Glucose 258 H 259 H 280 H Calcium Phosphorus Magnesium Total Bilirubin AST ALT Alkaline Phosphatase Total Protein Albumin Total T3 03/07/25 05:50 WBC 7.2 RBC 4.37 Hgb 13.2 Hct 38.6 MCV 88.3 MCH 30.2 MCHC 34.2 RDW 12.2 Plt Count 372 MPV 9.1 Immature Gran % (Auto) 0.4 Neut % (Auto) 63.9 Lymph % (Auto) 23.7 Bee % (Auto) 11.1 H Eos % (Auto) 0.6 Baso % (Auto) 0.3 Lymph # (Auto) 1.71 Bee # (Auto) 0.8 H Eos # (Auto) 0.0 Baso # (Auto) 0.0 Abs Immat Gran (auto) 0.03 Absolute Neuts (auto) 4.6 Absolute Nucleated RBC 0.000 Nucleated RBC % 0.0 Sodium 130 L Potassium 3.2 L Chloride 100 Carbon Dioxide 24 Anion Gap 6 BUN 6 L Creatinine 0.28 L Estim Creat Clear Calc 127 Estimated GFR > 60 Glucose 207 H POC Capillary Glucose Calcium 9.6 Phosphorus 2.3 L Magnesium 1.7 Total Bilirubin 0.7 AST 41 H ALT 38 H Alkaline Phosphatase 84 Total Protein 5.7 L Albumin 2.7 L Total T3 Quality VTE Prophylaxis VTE prophylaxis: pharmacologic ordered
[2025-03-07] MEDS: INSULIN ASPART (*BKC) 100 UNITS/ML SUB-Q ×2 (10:56→17:19)
[2025-03-07] MEDS: INSULIN GLARGINE (*BKC) 100 UNITS/ML 25 UNITS SUB-Q (10:57)
[2025-03-07] MEDS: ENOXAPARIN 40 MG/0.4 ML SYRINGE SUB-Q (10:57)
[2025-03-07] MEDS: NYSTATIN 100,000 UNITS/ML SUSP 5 ML ORAL.SUSP PO ×4 (10:57→21:01)
[2025-03-07] MEDS: FLUCONAZOLE 100 MG TABLET PO (10:58)
[2025-03-07] MEDS: POTASSIUM CHLORIDE 20 MEQ PACKET (FOR LIQUID) 40 MEQ PO (10:58)
[2025-03-07 14:00] VITALS: BP 145/78; PULSE 102; RESP 18; TEMP 35.6; O2SAT 96
[2025-03-07 21:33] VITALS: BP 138/75; PULSE 89; RESP 20; TEMP 36.4; O2SAT 97
[2025-03-08] MEDS: ACETAMINOPHEN 500 MG TABLET 1000 MG PO (05:02)
[2025-03-08 06:00] VITALS: BP 130/74; PULSE 79; RESP 18; TEMP 36.5; O2SAT 96
[2025-03-08 06:47] LABS: Hematocrit 38.3 % (37.0-47.0); Hemoglobin 12.7 g/dL (12.0-15.0); Immature Granulocyte Percent A 0.5 % (0-0.5); Lymphocytes Absolute Auto 1.85 K/mm3 (0.9-3.2); Mean Corpuscular HGB Conc 33.2 g/dl (32-36); Mean Corpuscular Hemoglobin 29.8 pg (26-34); Mean Corpuscular Volume 89.9 fl (80-100); Nucleated Red Blood Cells Absolute Auto 0.000 K/mm3 (0.0-0.012); Nucleated Red Blood Cells Perc 0.0 % (0.0-0.2); Platelet Count Result 396 k/mm3 (150-375); Red Blood Count 4.26 M/mm3 (4.2-5.4); White Blood Count 7.6 K/mm3 (4.5-10.0)
[2025-03-08 07:09] LABS: Anion Gap 7 mmol/L (4-12); Blood Urea Nitrogen 11 mg/dL (7-17); Calcium 9.9 mg/dL (8.4-10.2); Carbon Dioxide 26 mmol/L (22-30); Chloride 96 mmol/L (98-107); Estimated CRCL calculation 127 ml/min; Estimated Glomerular Filt Rate > 60; Glucose 145 mg/dL (65-110); Magnesium 1.8 mg/dL (1.6-2.3); Potassium 3.3 mmol/L (3.4-5.0); Sodium 129 mmol/L (137-145)
--- NOTE | 2025-03-08 07:47 | P.PNIM_ITS ---
Progress Note: A&P Assessment and Plan (1) DKA, type 2: Qualifiers: Diabetes mellitus complication detail: without coma Qualified Code(s): E11.10 - Type 2 diabetes mellitus with ketoacidosis without coma Code(s): E11.10 - Type 2 diabetes mellitus with ketoacidosis without coma Status: Acute Assessment and Plan: * Patient presents with generalized weakness, abdominal pain, nausea, vomiting, decreased p.o. intake/appetite. Patient has history of diabetes type 2 but has not been taking her medications for many months, she has not seen a primary care doctor since 2021 * in the ER patient was found to have elevated blood sugars of 336, elevated anion gap metabolic acidosis, elevated beta hydroxybutyrate, UA showed ketones, proteins and glucose by no UTI * patient given 2 L IV fluid bolus, started on insulin infusion per DKA protocol * give additional IV fluids * anion gap has closed, CO2 is improved, transitioned to long-acting insulin and sliding scale insulin. Titrate PRN * appreciate hospice educator and dietitian evaluation recommendations. * diabetic diet * hemoglobin A1c - 12% (2) Weakness: Code(s): R53.1 - Weakness Status: Acute Assessment and Plan: * patient expressing BLE weakness likely due to knee pain and RUE weakness likely due to neck/shoulder pain * XR L knee with no acute fracture, medial and lateral tibiofemoral joint space narrowing, small suprapatellar joint effusion * check CTA head and neck, MRI brain given high stroke risk * XR Knee L: Degenerative disease without acute fracture * may consider further imaging of lumbar spine if no further cause for LE weakness is identified * PT/OT - recommends further rehab (SNF) (3) Neck pain: Code(s): M54.2 - Cervicalgia Status: Acute Assessment and Plan: * no meningeal signs * pain control * Brain MRI: * No acute intracranial process. * Symmetric pattern of bilateral susceptibility artifact at the globus pallidus and dentate nuclei which can be related to calcium or iron deposit ion, the former typically age-related but both with wide differentials including toxic insults and neurodegenerative diseases such as Parkinson's. * Head/neck CTA * 40% stenosis of the right carotid bulb relative to normal distal artery lumen diameter (NASCET criteria). 0% stenosis of the left carotid bulb relative to normal distal artery lumen diameter. * Excess of atherosclerotic plaque but with <50% stenosis along the bilateral carotid siphons. No hemodynamically significant stenosis, thrombosis or aneurysm of the intracranial arteries. * Age-related changes in the brain including mild diffuse volume loss and mild scattered white matter hypoattenuation consistent with chronic small vessel ischemic disease. No acute intracranial process or abnormally enhancing brain lesions. * Denies any neck pain/complaints today, no rigidity or fever (4) Oropharyngeal candidiasis: Code(s): B37.0 - Candidal stomatitis Status: Acute Assessment and Plan: * Diflucan and nystatin swish and spit (5) Essential (primary) hypertension: Code(s): I10 - Essential (primary) hypertension Status: Acute Assessment and Plan: * Continue home lisinopril (6) Urinary retention: Code(s): R33.9 - Retention of urine, unspecified Status: Acute Assessment and Plan: * Patient with urinary retention, had a purewick in place with poor urine output, bladder scan showed close to 1000 mL. * Martin catheter was inserted * voiding trial today - catheter removed on 03/08 (7) Hypokalemia: Code(s): E87.6 - Hypokalemia Status: Acute Assessment and Plan: * K+ 3.2 upon admission * replacement ordered * recheck in AM * 03/08: K 3.3 - given appropriate supplementation Subjective Date/time seen: 03/08/25 07:47 Interval history: 64-year-old female patient with past medical history arthritis, hypertension, vitamin-D deficiency, obesity and gestational diabetes mellitus who admittedly has not seen a physician in years and does not take any current medications who comes to the emergency room today with complaints of having abdominal pain, nausea/vomiting and decreased appetite over the course of the past week. 03/08/2025 Patient sitting comfortably in bed at time of exam. Denies any CP, SOB, n/v or abdominal pain. Still reporting lower back pain but slightly better than yesterday. Will obtain lumbar spine MRI to assess for further causes of LE weakness. Review of Systems Review of Systems: All systems reviewed & are unremarkable except as noted in HPI and below Exam Narrative: General: NAD Eyes: EOMI ENT: neck supple Cardiovascular: Regular rate and rhythm Respiratory: Clear to auscultation, respirations even and unlabored on RA Gastrointestinal: Soft, non tender Genitourinary: no suprapubic tenderness Musculoskeletal: No edema Skin: warm, dry Neuro: Alert. Strength 3/5 in RUE, poor effort due to pain. Strength 3/5 in BLEs, poor effort due to pain. Face symmetric, speech clear. Psych: Mood appropriate Const: General: no acute distress Other: Female appearing older than stated age lying supine on stretcher at this time in no acute distress. She appears acutely ill. HENMT: Mouth: Yes Abnormal oral and palatal mucosa present white patches (Thick white plaques consistent with thrush ) Eyes: General: appearance normal, both eyes and all related structures Sclera: sclerae normal Pupils: Equal, round and reactive pupils present EOM: EOMs intact bilaterally Neck: Neck: supple and no JVD Thyroid: thyroid normal Lymphatic: lymphadenopathy not noted Resp: Effort & Inspection: normal respiratory effort Auscultation: clear to auscultation bilaterally Cardio: Rate: tachycardic Rhythm: regular rhythm Heart sounds: no gallops, no murmurs and no rubs GI: Auscultation: normal bowel sounds Skin: General skin exam: normal color, no rashes or lesions noted, no erythema, No lesion and No rashes Lesions: no lesions noted Rashes: no rashes noted Wounds: no wounds Neuro: Cranial nerves: Yes Equal, round and reactive pupils present Speech: normal speech Motor exam (neuro): 5/5 motor strength present throughout and Normal motor muscle tone present throughout Sensory Exam: normal sensation Extrem: General: normal to inspection, no edema and no pedal edema Psych: Mental Status: mental status grossly normal Affect: normal affect Objective Data Vital Signs Vital Signs: Vital Signs - 24 hr 03/07/25 07:58 03/07/25 09:25 03/07/25 14:00 Temperature 96.0 F L Pulse Rate 102 H Respiratory Rate 18 Blood Pressure 145/78 H Pulse Oximetry 96 Oxygen Delivery Room Air Room Air 03/07/25 20:00 03/07/25 21:33 03/08/25 06:00 Temperature 97.6 F 97.7 F Pulse Rate 89 79 Respiratory Rate 20 18 Blood Pressure 138/75 130/74 Pulse Oximetry 97 96 Oxygen Delivery Room Air Intake/Output Intake/Output: Intake & Output 03/05/25 03/06/25 03/07/25 03/08/25 23:59 23:59 23:59 23:59 Intake Total 2014.6 2795.7 558 150 Output Total 1750 2200 Balance 2014.6 1045.7 -1642 150 Meds/Results Medications: Active Medications Generic Name Dose Route Start Last Admin Trade Name Freq PRN Reason Stop Dose Admin Acetaminophen 1,000 mg 03/05/25 21:37 03/08/25 05:02 Acetaminophen 500 Mg Tablet PO 1,000 mg Q6H PRN Administration Mild Pain (1-3) or Fever Dextrose 12.5 gm 03/06/25 11:52 Dextrose 50% 25 Gm/50 Ml Syringe IV PUSH PRN PRN Hypoglycemia Protocol Enoxaparin Sodium 40 mg 03/05/25 21:40 03/07/25 10:57 Enoxaparin 40 Mg/0.4 Ml Syringe SUB-Q 40 mg DAILY JESUS Administration Fluconazole 100 mg 03/06/25 09:00 03/07/25 10:58 Fluconazole 100 Mg Tablet PO 100 mg QAM JESUS Administration Glucagon 1 mg 03/06/25 11:52 Glucagon For Inj 1 Mg Vial IM PRN PRN Hypoglycemia Protocol Glucose 15 gm 03/06/25 11:52 Glucose Oral Gel 15 Gm Of Glucse In 37.5 Gm Tube PO PRN PRN Hypoglycemia Protocol Hydralazine HCl 10 mg 03/05/25 21:36 Hydralazine Hcl 20 Mg/Ml Vial IV PUSH Q8H PRN Blood Pressure - High Dextrose 1,000 mls @ 100 mls/hr 03/06/25 11:52 Dextrose 5% 1,000 Ml IVPB PRN PRN Hypoglycemia Protocol Insulin Aspart 1 - 3 units 03/06/25 21:00 03/07/25 22:57 Insulin Aspart (*Bkc) 100 Units/Ml SUB-Q Not Given HS JESUS Protocol Insulin Aspart 3 - 6 units 03/06/25 12:00 03/07/25 17:19 Insulin Aspart (*Bkc) 100 Units/Ml SUB-Q 3 units TIDWM JESUS Administration Protocol Insulin Glargine 25 units 03/07/25 09:00 03/07/25 10:57 Insulin Glargine (*Bkc) 100 Units/Ml SUB-Q 25 units DAILY JESUS Administration Lisinopril 20 mg 03/05/25 21:40 03/07/25 10:58 Lisinopril 20 Mg Tablet PO 20 mg QAM JESUS Administration Nystatin 5 ml 03/06/25 09:00 03/07/25 21:01 Nystatin 100,000 Units/Ml Susp 5 Ml Oral.Susp PO 5 ml QID JESUS Administration Potassium Chloride 20 meq 03/08/25 07:40 Potassium Chloride 20 Meq Er Tablet PO 03/08/25 07:41 ONCE ONE Tramadol HCl 50 mg 03/05/25 21:37 03/07/25 21:00 Tramadol Hcl (*Crx) 50 Mg Tablet PO 50 mg Q6H PRN Administration Pain Rated 4-6 Radiology Results: ITS Impressions Abdomen/Pelvis CT 03/05/25 18:59 IMPRESSION: 4 mm right middle lobe pulmonary nodule, which requires no follow-up unless the patient is at high risk, in which case consider an optional CT in 12 months. Cholelithiasis, without inflammatory changes or bile duct dilation. Prominent bilateral renal pelves, may reflect a degree of chronic UPJ obstruction. 4 mm right midpole nephrolith. No evidence of obstructive uropathy. Distended urinary bladder, correlate for symptoms of urinary retention. Brain MRI 03/07/25 10:38 IMPRESSION: 1. No acute intracranial process. 2. Symmetric pattern of bilateral susceptibility artifact at the globus pallidus and dentate nuclei which can be related to calcium or iron deposition, the former typically age-related but both with wide differentials including toxic insults and neurodegenerative diseases such as Parkinson's. Head/Neck CTA 03/07/25 11:38 IMPRESSION: 1. 40% stenosis of the right carotid bulb relative to normal distal artery lumen diameter (NASCET criteria). 2. 0% stenosis of the left carotid bulb relative to normal distal artery lumen diameter. 3. Excess of atherosclerotic plaque but with <50% stenosis along the bilateral carotid siphons. No hemodynamically significant stenosis, thrombosis or aneurysm of the intracranial arteries. 4. Age-related changes in the brain including mild diffuse volume loss and mild scattered white matter hypoattenuation consistent with chronic small vessel ischemic disease. No acute intracranial process or abnormally enhancing brain lesions. Knee X-Ray 03/08/25 00:32 IMPRESSION: Patella perri with a suprapatellar joint effusion and significant degenerative disease. No acute fracture. Labs Labs: Laboratory Results - last 24 hr 03/07/25 03/07/25 03/07/25 07:44 11:38 16:28 WBC RBC Hgb Hct MCV MCH MCHC RDW Plt Count MPV Immature Gran % (Auto) Neut % (Auto) Lymph % (Auto) [place] % (Auto) Eos % (Auto) Baso % (Auto) Lymph # (Auto) [place] # (Auto) Eos # (Auto) Baso # (Auto) Abs Immat Gran (auto) Absolute Neuts (auto) Absolute Nucleated RBC Nucleated RBC % Sodium Potassium Chloride Carbon Dioxide Anion Gap BUN Creatinine Estim Creat Clear Calc Estimated GFR Glucose POC Capillary Glucose 210 H 198 H 225 H Calcium Magnesium 03/07/25 03/08/25 03/08/25 22:04 06:12 07:36 WBC 7.6 RBC 4.26 Hgb 12.7 Hct 38.3 MCV 89.9 MCH 29.8 MCHC 33.2 RDW 12.7 Plt Count 396 H MPV 9.4 Immature Gran % (Auto) 0.5 Neut % (Auto) 63.8 Lymph % (Auto) 24.2 [place] % (Auto) 10.2 H Eos % (Auto) 0.9 Baso % (Auto) 0.4 Lymph # (Auto) 1.85 [place] # (Auto) 0.8 H Eos # (Auto) 0.1 Baso # (Auto) 0.0 Abs Immat Gran (auto) 0.04 H Absolute Neuts (auto) 4.9 Absolute Nucleated RBC 0.000 Nucleated RBC % 0.0 Sodium 129 L Potassium 3.3 L Chloride 96 L Carbon Dioxide 26 Anion Gap 7 BUN 11 D Creatinine 0.28 L Estim Creat Clear Calc 127 Estimated GFR > 60 Glucose 145 H POC Capillary Glucose 169 H 139 H Calcium 9.9 Magnesium 1.8 Quality VTE Prophylaxis VTE prophylaxis: pharmacologic ordered
--- NOTE | 2025-03-08 08:40 | PC.NURSE ---
Incontinent of urine. To [facility] with assist of 2 and the walker. Reluctant to ambulate, c/o weakness. Encouraged getting up to the chair for breakfast.
[2025-03-08] MEDS: NYSTATIN 100,000 UNITS/ML SUSP 5 ML ORAL.SUSP PO ×4 (09:20→20:45)
[2025-03-08] MEDS: INSULIN GLARGINE (*BKC) 100 UNITS/ML 25 UNITS SUB-Q (09:20)
[2025-03-08] MEDS: ENOXAPARIN 40 MG/0.4 ML SYRINGE SUB-Q (09:20)
[2025-03-08] MEDS: FLUCONAZOLE 100 MG TABLET PO (09:21)
[2025-03-08] MEDS: traMADol HCL (*CRX) 50 MG TABLET PO ×2 (09:21→18:37)
[2025-03-08] MEDS: POTASSIUM CHLORIDE 20 MEQ ER TABLET PO (09:21)
[2025-03-08 14:00] VITALS: BP 126/74; PULSE 82; RESP 18; TEMP 36.4; O2SAT 95
[2025-03-08 21:33] VITALS: BP 127/59; PULSE 88; RESP 16; TEMP 36.8; O2SAT 97
[2025-03-08] MEDS: INSULIN ASPART (*BKC) 100 UNITS/ML SUB-Q (22:00)
[2025-03-09] MEDS: traMADol HCL (*CRX) 50 MG TABLET PO ×3 (00:34→17:04)
[2025-03-09 06:00] VITALS: BP 119/48; PULSE 83; RESP 20; TEMP 36.7; O2SAT 95
--- NOTE | 2025-03-09 08:18 | P.PNIM_ITS ---
Progress Note: A&P Assessment and Plan (1) DKA, type 2: Qualifiers: Diabetes mellitus complication detail: without coma Qualified Code(s): E11.10 - Type 2 diabetes mellitus with ketoacidosis without coma Code(s): E11.10 - Type 2 diabetes mellitus with ketoacidosis without coma Status: Acute Assessment and Plan: * Patient presents with generalized weakness, abdominal pain, nausea, vomiting, decreased p.o. intake/appetite. Patient has history of diabetes type 2 but has not been taking her medications for many months, she has not seen a primary care doctor since 2021 * in the ER patient was found to have elevated blood sugars of 336, elevated anion gap metabolic acidosis, elevated beta hydroxybutyrate, UA showed ketones, proteins and glucose by no UTI * patient given 2 L IV fluid bolus, started on insulin infusion per DKA protocol * give additional IV fluids * anion gap has closed, CO2 is improved, transitioned to long-acting insulin and sliding scale insulin. Titrate PRN * appreciate diabetes educator and dietitian evaluation recommendations. * diabetic diet * hemoglobin A1c - 12% * Glucose levels remain in the high 100s/lower 200s (2) Weakness: Code(s): R53.1 - Weakness Status: Acute Assessment and Plan: * patient expressing BLE weakness likely due to knee pain and RUE weakness likely due to neck/shoulder pain * XR L knee with no acute fracture, medial and lateral tibiofemoral joint space narrowing, small suprapatellar joint effusion * check CTA head and neck, MRI brain given high stroke risk * XR Knee L: Degenerative disease without acute fracture * may consider further imaging of lumbar spine if no further cause for LE weakness is identified * PT/OT - recommends further rehab (SNF vs home health) * Pending lumbar MRI * Working with care coordination - likely will be discharged to home with home health (3) Neck pain: Code(s): M54.2 - Cervicalgia Status: Acute Assessment and Plan: * no meningeal signs * pain control * Brain MRI: * No acute intracranial process. * Symmetric pattern of bilateral susceptibility artifact at the globus pallidus and dentate nuclei which can be related to calcium or iron deposition, the former typically age-related but both with wide differentials including toxic insults and neurodegenerative diseases such as Parkinson's. * Head/neck CTA * 40% stenosis of the right carotid bulb relative to normal distal artery lumen diameter (NASCET criteria). 0% stenosis of the left carotid bulb relative to normal distal artery lumen diameter. * Excess of atherosclerotic plaque but with <50% stenosis along the bilateral carotid siphons. No hemodynamically significant stenosis, thrombosis or aneurysm of the intracranial arteries. * Age-related changes in the brain including mild diffuse volume loss and mild scattered white matter hypoattenuation consistent with chronic small vessel ischemic disease. No acute intracranial process or abnormally enhancing brain lesions. * Denies any neck pain/complaints today, no rigidity or fever * No changes today - stable (4) Oropharyngeal candidiasis: Code(s): B37.0 - Candidal stomatitis Status: Acute Assessment and Plan: * Diflucan and nystatin swish and spit * Denies any dysphagia, difficulties eating (5) Essential (primary) hypertension: Code(s): I10 - Essential (primary) hypertension Status: Acute Assessment and Plan: * Continue home lisinopril (6) Urinary retention: Code(s): R33.9 - Retention of urine, unspecified Status: Acute Assessment and Plan: * Patient with urinary retention, had a purewick in place with poor urine output, bladder scan showed close to 1000 mL. * Martin catheter was inserted * voiding trial today - catheter removed on 03/08 (7) Hypokalemia: Code(s): E87.6 - Hypokalemia Status: Acute Assessment and Plan: * K+ 3.2 upon admission * replacement ordered * 03/09: K 3.6 * Monitor daily labs Subjective Date/time seen: 03/09/25 08:18 Interval history: 64-year-old female patient with past medical history arthritis, hypertension, vitamin-D deficiency, obesity and gestational diabetes mellitus who admittedly has not seen a physician in years and does not take any current medications who comes to the emergency room today with complaints of having abdominal pain, nausea/vomiting and decreased appetite over the course of the past week. 03/09/2025 Patient sitting comfortably in bed at time of exam. Denies any chest pain, n/v, SOB or abdominal pain. Reports continued intermittent lower extremity pain, which has been going on for several months, according to the patient. Pending Lumbar MRI. Vital signs and blood work remained stable or at baseline. Glucose levels remain in upper 100s/lower 200s. Neurological and physical exam benign. Review of Systems Review of Systems: All systems reviewed & are unremarkable except as noted in HPI and below Exam Narrative: General: NAD Eyes: EOMI ENT: neck supple Cardiovascular: Regular rate and rhythm Respiratory: Clear to auscultation, respirations even and unlabored on RA Gastrointestinal: Soft, non tender Genitourinary: no suprapubic tenderness Musculoskeletal: No edema Skin: warm, dry Neuro: Alert. Strength 3/5 in RUE, poor effort due to pain. Strength 3/5 in BLEs, poor effort due to pain. Face symmetric, speech clear. Psych: Mood appropriate Const: General: no acute distress Other: Female appearing older than stated age lying supine on stretcher at this time in no acute distress. She appears acutely ill. HENMT: Mouth: Yes Abnormal oral and palatal mucosa present white patches (Thick white plaques consistent with thrush ) Eyes: General: appearance normal, both eyes and all related structures Sclera: sclerae normal Pupils: Equal, round and reactive pupils present EOM: EOMs intact bilaterally Neck: Neck: supple and no JVD Thyroid: thyroid normal Lymphatic: lymphad enopathy not noted Resp: Effort & Inspection: normal respiratory effort Auscultation: clear to auscultation bilaterally Cardio: Rate: tachycardic Rhythm: regular rhythm Heart sounds: no gallops, no murmurs and no rubs GI: Auscultation: normal bowel sounds Skin: General skin exam: normal color, no rashes or lesions noted, no erythema, No lesion and No rashes Lesions: no lesions noted Rashes: no rashes noted Wounds: no wounds Neuro: Cranial nerves: Yes Equal, round and reactive pupils present Speech: normal speech Motor exam (neuro): 5/5 motor strength present throughout and Normal motor muscle tone present throughout Sensory Exam: normal sensation Extrem: General: normal to inspection, no edema and no pedal edema Psych: Mental Status: mental status grossly normal Affect: normal affect Objective Data Vital Signs Vital Signs: Vital Signs - 24 hr 03/08/25 14:00 03/08/25 21:33 03/09/25 06:00 Temperature 97.6 F 98.3 F 98.1 F Pulse Rate 82 88 83 Respiratory Rate 18 16 20 Blood Pressure 126/74 127/59 L 119/48 L Pulse Oximetry 95 97 95 Intake/Output Intake/Output: Intake & Output 03/06/25 03/07/25 03/08/25 03/09/25 23:59 23:59 23:59 23:59 Intake Total 2795.7 558 1162 150 Output Total 1750 2200 Balance 1045.7 -1642 1162 150 Meds/Results Medications: Active Medications Generic Name Dose Route Start Last Admin Trade Name Freq PRN Reason Stop Dose Admin Acetaminophen 1,000 mg 03/05/25 21:37 03/08/25 05:02 Acetaminophen 500 Mg Tablet PO 1,000 mg Q6H PRN Administration Mild Pain (1-3) or Fever Dextrose 12.5 gm 03/06/25 11:52 Dextrose 50% 25 Gm/50 Ml Syringe IV PUSH PRN PRN Hypoglycemia Protocol Enoxaparin Sodium 40 mg 03/05/25 21:40 03/08/25 09:20 Enoxaparin 40 Mg/0.4 Ml Syringe SUB-Q 40 mg DAILY JESUS Administration Fluconazole 100 mg 03/06/25 09:00 03/08/25 09:21 Fluconazole 100 Mg Tablet PO 100 mg QAM JESUS Administration Glucagon 1 mg 03/06/25 11:52 Glucagon For Inj 1 Mg Vial IM PRN PRN Hypoglycemia Protocol Glucose 15 gm 03/06/25 11:52 Glucose Oral Gel 15 Gm Of Glucse In 37.5 Gm Tube PO PRN PRN Hypoglycemia Protocol Hydralazine HCl 10 mg 03/05/25 21:36 Hydralazine Hcl 20 Mg/Ml Vial IV PUSH Q8H PRN Blood Pressure - High Dextrose 1,000 mls @ 100 mls/hr 03/06/25 11:52 Dextrose 5% 1,000 Ml IVPB PRN PRN Hypoglycemia Protocol Insulin Aspart 1 - 3 units 03/06/25 21:00 03/08/25 22:00 Insulin Aspart (*Bkc) 100 Units/Ml SUB-Q 1 units HS JESUS Administration Protocol Insulin Aspart 3 - 6 units 03/06/25 12:00 03/08/25 17:11 Insulin Aspart (*Bkc) 100 Units/Ml SUB-Q Not Given TIDWM [facility] Protocol Insulin Glargine 25 units 03/07/25 09:00 03/08/25 09:20 Insulin Glargine (*Bkc) 100 Units/Ml SUB-Q 25 units DAILY JESUS Administration Lisinopril 20 mg 03/05/25 21:40 03/08/25 09:21 Lisinopril 20 Mg Tablet PO 20 mg QAM JESUS Administration Nystatin 5 ml 03/06/25 09:00 03/08/25 20:45 Nystatin 100,000 Units/Ml Susp 5 Ml Oral.Susp PO 5 ml QID JESUS Administration Tramadol HCl 50 mg 03/05/25 21:37 03/09/25 00:34 Tramadol Hcl (*Crx) 50 Mg Tablet PO 50 mg Q6H PRN Administration Pain Rated 4-6 Radiology Results: ITS Impressions Abdomen/Pelvis CT 03/05/25 18:59 IMPRESSION: 4 mm right middle lobe pulmonary nodule, which requires no follow-up unless the patient is at high risk, in which case consider an optional CT in 12 months. Cholelithiasis, without inflammatory changes or bile duct dilation. Prominent bilateral renal pelves, may reflect a degree of chronic UPJ obstruction. 4 mm right midpole nephrolith. No evidence of obstructive uropathy. Distended urinary bladder, correlate for symptoms of urinary retention. Brain MRI 03/07/25 10:38 IMPRESSION: 1. No acute intracranial process. 2. Symmetric pattern of bilateral susceptibility artifact at the globus pallidus and dentate nuclei which can be related to calcium or iron deposition, the former typically age-related but both with wide differentials including toxic insults and neurodegenerative diseases such as Parkinson's. Head/Neck CTA 03/07/25 11:38 IMPRESSION: 1. 40% stenosis of the right carotid bulb relative to normal distal artery lumen diameter (NASCET criteria). 2. 0% stenosis of the left carotid bulb relative to normal distal artery lumen diameter. 3. Excess of atherosclerotic plaque but with <50% stenosis along the bilateral carotid siphons. No hemodynamically significant stenosis, thrombosis or aneurysm of the intracranial arteries. 4. Age-related changes in the brain including mild diffuse volume loss and mild scattered white matter hypoattenuation consistent with chronic small vessel ischemic disease. No acute intracranial process or abnormally enhancing brain lesions. Knee X-Ray 03/08/25 00:32 IMPRESSION: Patella perri with a suprapatellar joint effusion and significant degenerative disease. No acute fracture. Labs Labs: Laboratory Results - last 24 hr 03/08/25 03/08/25 03/08/25 11:20 16:55 21:58 POC Capillary Glucose 199 H 165 H 208 H 03/09/25 07:30 POC Capillary Glucose 196 H Quality VTE Prophylaxis VTE prophylaxis: pharmacologic ordered
[2025-03-09] MEDS: ACETAMINOPHEN 500 MG TABLET 1000 MG PO (08:23)
[2025-03-09 08:58] LABS: Hematocrit 42.0 % (37.0-47.0); Hemoglobin 13.8 g/dL (12.0-15.0); Immature Granulocyte Percent A 0.4 % (0-0.5); Lymphocytes Absolute Auto 1.95 K/mm3 (0.9-3.2); Mean Corpuscular HGB Conc 32.9 g/dl (32-36); Mean Corpuscular Hemoglobin 30.1 pg (26-34); Mean Corpuscular Volume 91.7 fl (80-100); Nucleated Red Blood Cells Absolute Auto 0.000 K/mm3 (0.0-0.012); Nucleated Red Blood Cells Perc 0.0 % (0.0-0.2); Platelet Count Result 436 k/mm3 (150-375); Red Blood Count 4.58 M/mm3 (4.2-5.4); White Blood Count 9.2 K/mm3 (4.5-10.0)
[2025-03-09] MEDS: INSULIN GLARGINE (*BKC) 100 UNITS/ML 25 UNITS SUB-Q (09:01)
[2025-03-09] MEDS: NYSTATIN 100,000 UNITS/ML SUSP 5 ML ORAL.SUSP PO ×4 (09:01→20:27)
[2025-03-09] MEDS: ENOXAPARIN 40 MG/0.4 ML SYRINGE SUB-Q (09:01)
[2025-03-09] MEDS: FLUCONAZOLE 100 MG TABLET PO (09:02)
[2025-03-09 09:30] LABS: Alanine Aminotransferase 26 U/L (6-35); Albumin Level 3.0 g/dL (3.5-5.1); Alkaline Phosphatase 102 U/L (38-126); Anion Gap 6 mmol/L (4-12); Aspartate Amino Transferase 28 U/L (14-36); Bilirubin,Total 0.7 mg/dL (0.2-1.3); Blood Urea Nitrogen 11 mg/dL (7-17); Calcium 9.9 mg/dL (8.4-10.2); Carbon Dioxide 32 mmol/L (22-30); Chloride 90 mmol/L (98-107); Estimated CRCL calculation 108 ml/min; Estimated Glomerular Filt Rate > 60; Glucose 211 mg/dL (65-110); Potassium 3.6 mmol/L (3.4-5.0); Sodium 128 mmol/L (137-145); Total Protein 6.4 g/dL (6.3-8.2)
[2025-03-09] MEDS: INSULIN ASPART (*BKC) 100 UNITS/ML SUB-Q ×3 (12:10→22:42)
[2025-03-09 14:00] VITALS: BP 131/67; PULSE 89; RESP 17; TEMP 36.1; O2SAT 100
[2025-03-09 22:00] VITALS: BP 131/57; PULSE 91; RESP 16; TEMP 36.4; O2SAT 96
[2025-03-10] MEDS: traMADol HCL (*CRX) 50 MG TABLET PO ×2 (01:16→08:38)
[2025-03-10 06:00] VITALS: BP 142/77; PULSE 89; RESP 18; TEMP 37.1; O2SAT 95
[2025-03-10 06:56] LABS: Hematocrit 37.6 % (37.0-47.0); Hemoglobin 12.3 g/dL (12.0-15.0); Immature Granulocyte Percent A 0.7 % (0-0.5); Lymphocytes Absolute Auto 2.15 K/mm3 (0.9-3.2); Mean Corpuscular HGB Conc 32.7 g/dl (32-36); Mean Corpuscular Hemoglobin 30.0 pg (26-34); Mean Corpuscular Volume 91.7 fl (80-100); Nucleated Red Blood Cells Absolute Auto 0.000 K/mm3 (0.0-0.012); Nucleated Red Blood Cells Perc 0.0 % (0.0-0.2); Platelet Count Result 377 k/mm3 (150-375); Red Blood Count 4.10 M/mm3 (4.2-5.4); White Blood Count 6.9 K/mm3 (4.5-10.0)
[2025-03-10 07:27] LABS: Alanine Aminotransferase 23 U/L (6-35); Albumin Level 2.7 g/dL (3.5-5.1); Alkaline Phosphatase 98 U/L (38-126); Anion Gap 3 mmol/L (4-12); Aspartate Amino Transferase 22 U/L (14-36); Bilirubin,Total 0.4 mg/dL (0.2-1.3); Blood Urea Nitrogen 10 mg/dL (7-17); Calcium 9.2 mg/dL (8.4-10.2); Carbon Dioxide 33 mmol/L (22-30); Chloride 88 mmol/L (98-107); Estimated CRCL calculation 120 ml/min; Estimated Glomerular Filt Rate > 60; Glucose 213 mg/dL (65-110); Potassium 3.3 mmol/L (3.4-5.0); Sodium 124 mmol/L (137-145); Total Protein 5.5 g/dL (6.3-8.2)
[2025-03-10] MEDS: INSULIN ASPART (*BKC) 100 UNITS/ML SUB-Q ×3 (08:40→17:52)
[2025-03-10] MEDS: FLUCONAZOLE 100 MG TABLET PO (08:40)
[2025-03-10] MEDS: ENOXAPARIN 40 MG/0.4 ML SYRINGE SUB-Q (08:40)
[2025-03-10] MEDS: NYSTATIN 100,000 UNITS/ML SUSP 5 ML ORAL.SUSP PO ×3 (08:40→17:50)
[2025-03-10] MEDS: INSULIN GLARGINE (*BKC) 100 UNITS/ML 25 UNITS SUB-Q (08:41)
[2025-03-10 14:00] VITALS: BP 143/59; PULSE 97; RESP 18; TEMP 37.1; O2SAT 100
[2025-03-10 14:34] LABS: Sodium 127 mmol/L (137-145)
--- NOTE | 2025-03-10 15:24 | P.DS_ITS ---
DS: Admitting Diagnosis Discharge Date 03/10/2025 Admitting Diagnosis DKA, Oropharyngeal candidiasis, Weakness DS: Discharge Diagnosis Discharge Diagnosis (1) DKA, type 2: Qualifiers: Diabetes mellitus complication detail: without coma Qualified Code(s): E11.10 - Type 2 diabetes mellitus with ketoacidosis without coma Code(s): E11.10 - Type 2 diabetes mellitus with ketoacidosis without coma Status: Acute (2) Weakness: Code(s): R53.1 - Weakness Status: Acute (3) Neck pain: Code(s): M54.2 - Cervicalgia Status: Acute (4) Oropharyngeal candidiasis: Code(s): B37.0 - Candidal stomatitis Status: Acute (5) Essential (primary) hypertension: Code(s): I10 - Essential (primary) hypertension Status: Acute (6) Urinary retention: Code(s): R33.9 - Retention of urine, unspecified Status: Acute (7) Hypokalemia: Code(s): E87.6 - Hypokalemia Status: Acute DS: Summary Hospital Course Reason for hospitalization: Abdominal pain with nausea Hospital Course: This is a 64-year-old female patient with past medical history arthritis, hypertension, vitamin-D deficiency, obesity and gestational diabetes mellitus who admittedly has not seen a physician in years and does not take any current m edications who comes to the emergency room today with complaints of having abdominal pain, nausea/vomiting and decreased appetite over the course of the past week. Patient states her appetite has been further determined by painful swallowing due to pain in her mouth. She denies any fevers. She denies any diarrhea. She denies any other acute complaints. In the emergency room it was obvious that patient presented with thrush. Workup was initiated showing unremarkable metabolic panel with exception of mildly low sodium 132 and glucose of 336. CBC with platelets of 524 otherwise no chronic anemia identified and no elevated white blood cell count. Magnesium is 2.1, phosphorus is 2.5, hemoglobin A1c is 12.0, beta hydroxybutyrate is 7.59, patient acidotic with pH of 7.332 on arterial blood gas, pCO2 of 18.6, PO2 of 107.1 and HC03 of 9.6. Her anion gap is 25. Patient was initiated on insulin drip protocol and is being admitted to ICU in the current setting with consult to touring production manager. CT abdomen and pelvis showing a 4 mm right middle lobe pulmonary nodule that will require further follow-up otherwise no acute findings. Patient presented with generalized weakness/abdominal pain and nausea/vomiting. She does have a history of T2 dm but states that she has been noncompliant for many months and has not seen a primary care doctor since 2021. In the ER she was given 2 L IV fluid bolus and started on insulin infusion per DKA protocol and given additional IV fluids throughout hospitalization. Anion gap eventually closed CO2 improved and was transitioned to long-acting insulin and sliding scale insulin. assistant health educator and dietitian evaluations replaced. Patient was also started on Diflucan and nystatin swish and spit for oral pharyngeal candidiasis. Her oral symptoms improved over hospitalization. Patient also presented with bilateral lower extremity weakness. Upon exam, patient reports that this pain has been going on for ?several weeks or months without any known injury or cause. She also has right upper extremity weakness likely due to ongoing chronic neck/shoulder pain. X-ray of the left knee showed no acute fracture, medial and lateral tibial femoral joint space narrowing and a small suprapatellar joint effusion. CTA head and neck showed 40% stenosis of the right carotid bulb and 0% stenosis of the left carotid bulb, excess of atherosclerotic plaque but with less than 50% stenosis along by bilateral carotid siphons, no hemodynamic significant stenosis thrombosis or aneurysm of the intracranial arteries, along with age related changes in the brain. And MRI of the brain showed no acute intracranial process with symmetric pattern of bilateral susceptibility artifact at the globus pallidus and dentate nuclei which can be related to calcium or iron deposition, the former typically age related but both with wide differentials. She will be instructed to follow-up with her primary care physician regarding these findings. X-ray of the right knee showed no acute fracture, with patellar Pollock with suprapatellar joint effusion and significant degenerative disease. Given these relatively unremarkable findings, lumbar MRI was obtained which showed severe lower thoracic a mild to moderate lower lumbar predominance spondylosis with likely severe osteoarthritis at the right L3/L4 facet joint. Once again she will be instructed to follow-up with her PCP regarding these findings, however these are nonsurgically treated findings. She continues to report that the symptoms have been ongoing for the past several months but continues to be able to work with physical therapy in a limited capacity. PT/OT recommends further rehab, patient denies SNF and prefer home with home health services. This has been set up by care coordination. On 03/10, patient was ready for discharge but was found to have a sodium of 124. I discussed this case with Dr. Alexander of Nephrology who recommended sodium urine studies and if the sodium increased to 126+, then the pt could follow-up in the outpatient setting. He agrees that since we have a 3 year gap since her previous admission and she has been hyponatremic for the entirety of her hospitalization this time, that the patient probably has some underlying hyponatremia at baseline. Repeat sodium studies show us sodium of 127. Once again, discussed with Dr. Alexander who states that this is appropriate for discharge in that she could follow-up in the outpatient setting with her PCP. Patient is amenable to this plan and has been given the proper discharge instructions. Status at Discharge Functional status at discharge: uses cane/walker Overall status at discharge: patient is progressing back to baseline Time Spent with Patient Time attestation: Total time spent providing and/or coordinating discharge services: 42 Exam Narrative: General: NAD Eyes: EOMI ENT: neck supple Cardiovascular: Regular rate and rhythm Respiratory: Clear to auscultation, respirations even and unlabored on RA Gastrointestinal: Soft, non tender Genitourinary: no suprapubic tenderness Musculoskeletal: No edema Skin: warm, dry Neuro: Alert. Strength 3/5 in RUE, poor effort due to pain. Strength 3/5 in BLEs, poor effort due to pain. Face symmetric, speech clear. Psych: Mood appropriate Const: General: no acute distress Other: Female appearing older than stated age lying supine on stretcher at this time in no acute distress. She appears acutely ill. HENMT: Mouth: Yes Abnormal oral and palatal mucosa present white patches (Thick white plaques consistent with thrush ) Eyes: General: appearance normal, both eyes and all related structures Sclera: sclerae normal Pupils: Equal, round and reactive pupils present EOM: EOMs intact bilaterally Neck: Neck: supple and no JVD Thyroid: thyroid normal Lymphatic: lymphadenopathy not noted Resp: Effort & Inspection: normal respiratory effort Auscultation: clear to auscultation bilaterally Cardio: Rate: tachycardic Rhythm: regular rhythm Heart sounds: no gallops, no murmurs and no rubs GI: Auscultation: normal bowel sounds Skin: General skin exam: normal color, no rashes or lesions noted, no erythema, No lesion and No rashes Lesions: no lesions noted Rashes: no rashes noted Wounds: no wounds Neuro: Cranial nerves: Yes Equal, round and reactive pupils present Speech: normal speech Motor exam (neuro): 5/5 motor strength present throughout and Normal motor muscle tone present throughout Sensory Exam: normal sensation Extrem: General: normal to inspection, no edema and no pedal edema Psych: Mental Status: mental status grossly normal Affect: normal affect DS: Data Data Completed and Pending Labs on day of discharge: Labs from last 24 hours 03/10/25 03/10/25 03/10/25 14:14 11:26 07:24 WBC RBC Hgb Hct MCV MCH MCHC RDW Plt Count MPV Immature Gran % (Auto) Neut % (Auto) Lymph % (Auto) [place] % (Auto) Eos % (Auto) Baso % (Auto) Lymph # (Auto) [place] # (Auto) Eos # (Auto) Baso # (Auto) Abs Immat Gran (auto) Absolute Neuts (auto) Absolute Nucleated RBC Nucleated RBC % Sodium 127 L Potassium Chloride Carbon Dioxide Anion Gap BUN Creatinine Estim Creat Clear Calc Estimated GFR Glucose POC Capillary Glucose 239 H 216 H Serum Osmolality Pending Calcium Total Bilirubin AST ALT Alkaline Phosphatase Total Protein Total Protein (PEP) Pending Albumin Albumin (PEP) Pending Globulin (PEP) Pending Albumin/Globulin Ratio Pending Rjcsy-[id number] Pending Uoizr-0-Ioeuoaorv Pending Beta Globulins Pending Gamma Globulins Pending Pr Electrophoresis MSpike Pending 03/10/25 03/09/25 03/09/25 06:11 20:38 16:35 WBC 6.9 RBC 4.10 L Hgb 12.3 Hct 37.6 MCV 91.7 MCH 30.0 MCHC 32.7 RDW 12.5 Plt Count 377 H MPV 9.2 Immature Gran % (Auto) 0.7 H Neut % (Auto) 53.4 Lymph % (Auto) 31.0 [place] % (Auto) 13.3 H Eos % (Auto) 1.0 Baso % (Auto) 0.6 Lymph # (Auto) 2.15 [place] # (Auto) 0.9 H Eos # (Auto) 0.1 Baso # (Auto) 0.0 Abs Immat Gran (auto) 0.05 H Absolute Neuts (auto) 3.7 Absolute Nucleated RBC 0.000 Nucleated RBC % 0.0 Sodium 124 L Potassium 3.3 L Chloride 88 L Carbon Dioxide 33 H Anion Gap 3 L BUN 10 Creatinine 0.30 L Estim Creat Clear Calc 120 Estimated GFR > 60 Glucose 213 H POC Capillary Glucose 254 H 299 H Serum Osmolality Calcium 9.2 Total Bilirubin 0.4 AST 22 ALT 23 Alkaline Phosphatase 98 Total Protein 5.5 L Total Protein (PEP) Albumin 2.7 L Albumin (PEP) Globulin (PEP) Albumin/Globulin Ratio Ppnyo-6-Apcrazkeu Dymjt-3-Tetaeocop Beta Globulins Gamma Globulins Pr Electrophoresis MSpike Discharge Plan Discharge Attending physician on discharge: Karlie Vazquez Consulting providers: Maria Teresa Cortes; Chelle Damico; Anuradha Ruvalcaba; Jatinder Krueger; Magaly Alexander Discharging Clinician: Jatinder Krueger Anticipated Discharge Date/Time: 03/10/25 15:09 Patient Disposition: Home with Home Health Service Activity: no straining Diet: heart healthy Discharge Instructions: Per Care Coordination: Patient to have [facility] for RN/PT/OT services at discharge. Office will call the patient to set up initial visit. Office ph#[phone]. Discharge disposition: Home with home health services Take medications as prescribed. Continue taking your Diflucan and nystatin for the entire course. Monitor blood pressures Take caution while standing, rising, or moving Change positions slowly taking a break between each position change If you standing feel dizzy sit back down and take a break Encouraged to continue with yearly vaccinations Return to the emergency department if he developed sudden shortness of breath, chest pain, nausea, vomiting, upset stomach or intractable diarrhea Return to the emergency department if you develop fever greater than 101.5 Follow-up with the primary care physician within 1-2 weeks. Discuss with them an outpatient workup regarding your Hyponatremia, they may want to refer you to a credit card clerk. Thank you for choosing [facility] for your healthcare needs Patient Instructions: Antibiotic Form, Diabetic Ketoacidosis (DC), Basic Carbohydrate Counting (DC), Hypertension and Diabetes (DC), Diabetes and Nutrition (DC), Type 2 Diabetes Management for Adults (DC) Patient Language: Mongolian Stand Alone Forms: General Discharge Information Follow-up/Referrals: Magaly Alexander MD [Physician] - PHYSICIAN,AIR CONDITIONING INSULATION INSTALLER [Primary Care Provider] - Discharge Medications: New fluconazole 100 mg tablet 100 mg PO DAILY Qty: 10 0RF nystatin 100,000 unit/mL Suspension 5 ml PO QID 10 Days Qty: 200 0RF Date of admission: 03/08/25 11:57 Primary Care Provider: PHYSICIAN,AIR CONDITIONING INSULATION INSTALLER Admitting Provider: Ra Arango Attending physician on admission: Ra Arango Condition: Stable Quality VTE Prophylaxis VTE prophylaxis: pharmacologic ordered
[2025-03-13 14:07] LABS: Albumin 1.9 g/dL (2.9-4.4); Alpha-1-Globulin 0.4 g/dL (0.0-0.4); Alpha-2-Globulin 1.0 g/dL (0.4-1.0); Gamma Globulin 0.6 g/dL (0.4-1.8)
[2025-03-15 00:07] LABS: Osmolality, Serum 272 mOsmol/kg (280-301)
== END 2025-03-10 18:57 | disposition home health service (06) | DRG 638 ==
LOC: ANHED 15:51 → ANHICU 21:04 → ANH3MEDSUR 03-07 06:54
PROVIDERS: Internal Medicine; Internal Medicine Nephrology; Nurse Practitioner Adult Health; Physician Assistant; Admitting Provider Internal Medicine; Emergency Provider Physician Assistant; Visit Provider Physician Assistant
DX: E11.10 Type 2 diabetes mellitus with ketoacidosis without coma (principal); B37.0 Candidal stomatitis; E87.1 Hypo-osmolality and hyponatremia; I10 Essential (primary) hypertension; E87.6 Hypokalemia; E55.9 Vitamin D deficiency, unspecified; M16.12 Unilateral primary osteoarthritis, left hip; M17.11 Unilateral primary osteoarthritis, right knee; M54.2 Cervicalgia; M25.561 Pain in right knee; M47.814 Spondylosis without myelopathy or radiculopathy, thoracic region; M47.816 Spondylosis without myelopathy or radiculopathy, lumbar region; R33.9 Retention of urine, unspecified; R91.1 Solitary pulmonary nodule; Z96.649 Presence of unspecified artificial hip joint; Z91.148 Patient's other noncompliance with medication regimen for other reason
CPT/HCPCS: 36415; 36600; 70496; 70498; 70553; 72158; 73562; 74177; 80048; 80053; 80061; 81001; 82010; 82375; 82805; 82948; 83036; 83050; 83605; 83690; 83735; 83930; 84100; 84155; 84165; 84295; 84439; 84443; 84480; 85018; 85025; 85610; 85730; 87641; 93005; 96361; 96374; 96375; 97110; 97116; 97162; 97165; 97530; 97535; 99285; A9270; A9577; J1650; J1815; J2405; J3480; J7030; J7120; Q9967

== ENCOUNTER 2025-03-12 22:04 | Observation (INO) | payer BC, SELFPAY ==
--- NOTE | ~2025-03-12 | XR_ITS ---
EXAMINATION: XR chest 1V portable DATE: 03/13/2025 02:32 INDICATION: Diabetic ketoacidosis TECHNIQUE: frontal view of the chest was obtained. COMPARISON: None FINDINGS: The lungs are clear with no focal airspace opacities, pulmonary edema, pleural effusion or pneumothor ax. The cardiomediastinal silhouette is normal. Moderate thoracic spondylosis. IMPRESSION: 1. No acute cardiopulmonary disease. Reviewed, dictated and finalized at location A.
--- NOTE | ~2025-03-12 | XR_ITS ---
EXAM/ PROCEDURE: XR foot RT 2V - 03/14/2025 10:42 CDT HISTORY: 64 years old Female with SEVERE PAIN RT FOOT COMPARISON: None available TECHNIQUE: Three view(s) FINDINGS/ IMPRESSION: There are no fractures or dislocations.Joint space narrowing, subchondral sclerosis, subchondral cyst formation and osteophyte formation, compatible with mild osteoarthritis. Calcaneal enthesopathy. Reviewed, dictated and finalized at location A.
[2025-03-12 22:07] VITALS: BP 139/78; PULSE 90; RESP 18; O2SAT 96
--- OUTSIDE RECORDS SUMMARY | 2025-03-12 22:07 | XMS_ITS | Clinical Summary ---
Author Organization [facility] Address [address] [place] [address] Care Team Providers Care Internet Marketing Assistant Name Role Phone Unavailable Primary Care Provider Unavailabl e Source Comments [facility],non-owned Affiliates and Associated Physician Practices is amultiple site organization consisting of ambulatory clinics and hospital sitesin [place] and [place]. This disclosure is being madepursuant to the Care Everywhere program and may not contain all information available regarding this patient. 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
--- NOTE | 2025-03-13 01:41 | ED_ITS ---
HPI - Recheck/Abnormal Lab/Rx General Chief Complaint: Recheck/Abnormal Lab/Rx Stated Complaint: high blood sugar Time Seen by Provider: 03/13/25 01:33 History of Present Illness HPI narrative: 64-year-old female with history of uncontrolled type 2 diabetes, hypertension, arthritis. Patient was just admitted to the ICU for diabetic ketoacidosis management and discharged home 2 days ago. According to the patient and family she was discharged without any insulin or diabetic medications and she has been uncontrolled and having elevated blood sugars at home with recurrence of her symptoms. She expresses profound weakness, dehydration and polyuria. No other changes to her health otherwise. Patient and family enquiring about why she was sent home without insulin regimen or appropriate treatment upon discharge. No other new complaints. No shortness of breath, fever, chills, new abdominal pain, back pain, diarrhea or constipation. She states she has been eating but also going to the bathroom quite frequently and is not anything to cause spikes in blood sugars at according to the family or the patient. Related Data Allergies Allergy/AdvReac Type Severity Reaction Status Date / Time latex Allergy Intermediate REDNESS, Verified 03/13/25 06:02 RASH Penicillins AdvReac Intermediate DECREASED Verified 03/13/25 06:02 HEART RATE and rash fentanyl AdvReac Mild DIZZINESS, Verified 03/13/25 06:02 HEADACHE Review of Systems 2 Review of Systems: As reviewed above in HPI PMFSH Past Medical History Medical History Obesity Degenerative joint disease of left hip Right knee DJD Nausea Degenerative joint disease (DJD) of hip Encounter for screening mammogram for breast cancer Screening for osteoporosis Osteoarthritis of hip Essential (primary) hypertension Type 2 diabetes mellitus Elevated blood pressure reading Vitamin D deficiency Fatigue Screening for lipoid disorders Screening for metabolic disorder Allergies Surgical History Surgical History S/P total hip arthroplasty History of arthroscopy of left knee History of section complicating Family History Family History Father Cancer Diabetes mellitus Hypertension Mother Diabetes mellitus Hypertension Depression Anxiety Sibling Diabetes mellitus Hypertension Social History Social History Social History: Caffeine-coffee Smoking status: Never smoker Alcohol intake: never Substance use: never Substance use type: does not use Lack of Transportation: No Lack of Food: Never True Current Housing: I Have Housing Concerned About Future Housing: No Difficulty Paying Gas/Electric Bills: Decline to Answer Difficulty Paying for Meds: Decline to Answer Currently Unemployed: Decline to Answer Education: Decline to Answer Difficulty w/ Childcare or Family Care: Decline to Answer Living arrangements: with family Additional living arrangements comments: SPOUSE Gender identity (if verbalized by the patient): Female Spiritual care concerns: No Exam 2 Narrative: GENERAL: [Well-appearing, well-nourished, and in no acute distress.] HEAD: [Normocephalic, atraumatic.] EYES: [PERRLA and EOMI.] ENT: Nares clear, no rhinorrhea or epistaxis. Mucous membranes dry. NECK: Supple. CHEST: [Clear to auscultation. No respiratory distress.] HEART: [Regular rate and rhythm]. No murmur heard. [Normal peripheral pulses.] ABDOMEN: [Soft, nondistended], [nontender], [No rigidity or guarding] EXTREMITIES: Normal range of motion. [No edema.] SKIN: Warm, dry, no rash. NEURO: [No focal deficits]. Alert and oriented [x3.] PSYCH: [Normal mood and affect.] Course Vital Signs Vital signs: Vital Signs Pulse Rate 90 03/12/25 22:07 Respiratory Rate 18 03/12/25 22:07 Blood Pressure 139/78 03/12/25 22:07 Pulse Oximetry 96 03/12/25 22:07 Oxygen Delivery Room Air 03/12/25 22:07 Temperature 36.7 C 03/13/25 02:19 Pulse Rate 88 03/13/25 04:10 Respiratory Rate 16 03/13/25 04:10 Blood Pressure 155/81 H 03/13/25 04:10 Pulse Oximetry 99 03/13/25 04:10 Oxygen Delivery Room Air 03/13/25 02:19 MDM - Recheck/Abnormal Lab/Rx MDM Narrative Medical decision making narrative: 64-year-old female with history of uncontrolled type 2 diabetes, hypertension, arthritis. Patient was just admitted to the ICU for diabetic ketoacidosis management and discharged home 2 days ago. According to the patient and family she was discharged without any insulin or diabetic medications and she has been uncontrolled and having elevated blood sugars at home with recurrence of her symptoms. She expresses profound weakness, dehydration and polyuria. No other changes to her health otherwise. Patient and family enquiring about why she was sent home without insulin regimen or appropriate treatment upon discharge. No other new complaints. No shortness of breath, fever, chills, new abdominal pain, back pain, diarrhea or constipation. She states she has been eating but also going to the bathroom quite frequently and is not anything to cause spikes in blood sugars at according to the family or the patient. Patient presents with elevated blood sugar readings in the for 3-400 range as well as symptomatic hyperglycemia with generalized malaise and weakness as well as dehydration and polyuria. Hemodynamically stable, no tachycardia, tachypnea, fever or hypoxemia. Normal blood pressure. She does appear dehydrated on clinical examination and given her point of care glucose in the 400 range with recent ICU admission for DKA I do suspect she has a recurrence of either severe hyperglycemia or diabetic ketoacidosis. Likely trigger is labs and medication rather than infectious source or other potential triggers/etiologies. Chest x- ray, urinalysis, CBC, CMP, lipase, beta hydroxybutyrate level, VBG level. She is given 2 L of hydration and awaiting laboratory studies prior to initiation of insulin therapy. No signs of DKA but she is severely hyperglycemic and causing some dehydration. She was given additional fluids and subcutaneous insulin which did decrease her glucose levels. Spoke to the hospitalist regarding readmission for diabetic control. Patient was accepted for an observation admission and stat on moderate sliding scale insulin with additional fluid resuscitation and maintenance fluids going. Family comfortable with the plan. Medical Records Attestation: I reviewed the patient's medical records. Lab Data Attestation: I reviewed the patient's lab results. 03/13/25 02:16 03/13/25 02:16 Labs: Lab Results 03/12/25 03/13/25 03/13/25 Range/Units 22:11 02:16 03:21 WBC 7.4 (4.5-10.0) K/mm3 RBC 4.01 L (4.2-5.4) M/mm3 Hgb 11.9 L (12.0-15.0) g/dL Hct 36.8 L (37.0-47.0) % MCV 91.8 (80-100) fl MCH 29.7 (26-34) pg MCHC 32.3 (32-36) g/dl RDW 12.6 (11.5-14.5) % Plt Count 365 (150-375) k/mm3 MPV 8.9 (7.4-10.4) fl Immature Gran % (Auto) 0.5 (0-0.5) % Neut % (Auto) 50.2 (45.5-73.1) % Lymph % (Auto) 35.3 (18.3-44.2) % [place] % (Auto) 12.7 H (2.6-8.5) % Eos % (Auto) 0.8 (0-4.4) % Baso % (Auto) 0.5 (0.2-1.2) % Lymph # (Auto) 2.61 (0.9-3.2) K/mm3 [place] # (Auto) 0.9 H (0.1-0.6) K/mm3 Eos # (Auto) 0.1 (0-0.3) K/mm3 Baso # (Auto) 0.0 (0.0-0.1) K/mm3 Abs Immat Gran (auto) 0.04 H (0.00-0.031) K/mm3 Absolute Neuts (auto) 3.7 (1.3-6.7) K/mm3 Absolute Nucleated RBC 0.000 (0.0-0.012) K/mm3 Nucleated RBC % 0.0 (0.0-0.2) % Sodium 127 L (137-145) mmol/L Potassium 3.5 (3.4-5.0) mmol/L Chloride 90 L (98-107) mmol/L Carbon Dioxide 32 H (22-30) mmol/L Anion Gap 5 (4-12) mmol/L BUN 11 (7-17) mg/dL Creatinine 0.39 L (0.7-1.0) mg/dL Estim Creat Clear Calc Not Reportable Estimated GFR > 60 (59 - ) Glucose 319 H (65-110) mg/dL POC Capillary Glucose 393 H (65-105) mg/dl Calcium 9.1 (8.4-10.2) mg/dL Phosphorus 3.0 (2.5-4.5) mg/dL Magnesium 1.9 (1.6-2.3) mg/dL Total Bilirubin 0.7 (0.2-1.3) mg/dL AST 36 (14-36) U/L ALT 30 (6-35) U/L Alkaline Phosphatase 109 (38-126) U/L Total Protein 6.4 (6.3-8.2) g/dL Albumin 3.1 L (3.5-5.1) g/dL Beta-Hydroxybutyrate/Acetoacetate 1.27 H (0.02-0.27) mmol/L Urine Color Yellow (Yellow) Urine Appearance Clear (Clear) Urine pH 7.0 (5.0-9.0) Ur Specific [place] 1.021 (1.001-1.035) Urine Protein Negative (Negative) mg/dL Urine Glucose (UA) 3+ H (Negative) mg/dL Urine Ketones 1+ H (Negative) mg/dL Ur Blood (Man) Negative (Negative) Urine Nitrate Positive H (Negative) Urine Bilirubin Negative (Negative) Urine Urobilinogen 0.2 (<2.0) mg/dL Leukocyte Esterase Rfl Negative (Negative) ETEHL/UL Urine RBC 0-2 (0-2) /hpf Urine WBC 0-5 (0-3) /hpf Ur Squamous Epith Cells None seen (Few) /hpf Urine Bacteria 2+ H /hpf Urine Casts 0-2 08/18/25 Range/Units 04:09 WBC (4.5-10.0) K/mm3 RBC (4.2-5.4) M/mm3 Hgb (12.0-15.0) g/dL Hct (37.0-47.0) % MCV (80-100) fl MCH (26-34) pg MCHC (32-36) g/dl RDW (11.5-14.5) % Plt Count (150-375) k/mm3 MPV (7.4-10.4) fl Immature Gran % (Auto) (0-0.5) % Neut % (Auto) (45.5-73.1) % Lymph % (Auto) (18.3-44.2) % [place] % (Auto) (2.6-8.5) % Eos % (Auto) (0-4.4) % Baso % (Auto) (0.2-1.2) % Lymph # (Auto) (0.9-3.2) K/mm3 [place] # (Auto) (0.1-0.6) K/mm3 Eos # (Auto) (0-0.3) K/mm3 Baso # (Auto) (0.0-0.1) K/mm3 Abs Immat Gran (auto) (0.00-0.031) K/mm3 Absolute Neuts (auto) (1.3-6.7) K/mm3 Absolute Nucleated RBC (0.0-0.012) K/mm3 Nucleated RBC % (0.0-0.2) % Sodium (137-145) mmol/L Potassium (3.4-5.0) mmol/L Chloride (98-107) mmol/L Carbon Dioxide (22-30) mmol/L Anion Gap (4-12) mmol/L BUN (7-17) mg/dL Creatinine (0.7-1.0) mg/dL Estim Creat Clear Calc Estimated GFR (59 - ) Glucose (65-110) mg/dL POC Capillary Glucose 266 H (65-105) mg/dl Calcium (8.4-10.2) mg/dL Phosphorus (2.5-4.5) mg/dL Magnesium (1.6-2.3) mg/dL Total Bilirubin (0.2-1.3) mg/dL AST (14-36) U/L ALT (6-35) U/L Alkaline Phosphatase (38-126) U/L Total Protein (6.3-8.2) g/dL Albumin (3.5-5.1) g/dL Beta-Hydroxybutyrate/Acetoacetate (0.02-0.27) mmol/L Urine Color (Yellow) Urine Appearance (Clear) Urine pH (5.0-9.0) Ur Specific [place] (1.001-1.035) Urine Protein (Negative) mg/dL Urine Glucose (UA) (Negative) mg/dL Urine Ketones (Negative) mg/dL Ur Blood (Man) (Negative) Urine Nitrate (Negative) Urine Bilirubin (Negative) Urine Urobilinogen (<2.0) mg/dL Leukocyte Esterase Rfl (Negative) ETHEL/UL Urine RBC (0-2) /hpf Urine WBC (0-3) /hpf Ur Squamous Epith Cells (Few) /hpf Urine Bacteria /hpf Urine Casts ABG Data ABG results: 03/13/25 02:16 VBG pH 7.558 H* VBG pCO2 34.5 L VBG pO2 38.0 VBG HCO3 30.1 H O2 Delivery Device Room air O2 Liters/Min Not Reportable FiO2 21 Attestation: I personally reviewed and interpreted this ABG as follows: Interpretation: Respiratory alkalosis secondary to tachypnea from dehydration Imaging Data Attestation: I personally reviewed and interpreted this imaging study as follows: My impression: No acute cardiopulmonary process Discharge Plan Discharge Clinical Impression: Severe hyperglycemia due to diabetes mellitus Patient Disposition: Still a Patient Condition: Stable
--- OUTSIDE RECORDS SUMMARY | 2025-03-13 01:55 | XMS_ITS | Clinical Summary ---
Author Organization [facility] Address [address] [place] [address] Care Team Providers Care Websphere Developer Name Role Phone Unavailable Primary Care Provider Unavailabl e Source Comments [facility],non-owned Affiliates and Associated Physician Practices is amultiple site organization consisting of ambulatory clinics and hospital sitesin [place], [place], [place] and [place]. This disclosure is being madepursuant to the Care Everywhere program and may not contain all information available regarding this patient. Last updated 18.[facility] [employer] Social History Tobacco Use Types Packs/Day Years Used Date Smoking Tobacco: Never Assessed Comments Unknown Sex and Gender Information Value Date Recorded Sex Assigned at Not on file Legal Sex Female 1:10 PM [employer] Gender Identity Not on file Sexual Orientation [...]
[2025-03-13] MEDS: SODIUM CHLORIDE 0.9% IV 1,000 ML 999 ML IV CONT ×3 (02:18→05:06)
[2025-03-13 02:19] VITALS: BP 161/86; PULSE 84; RESP 17; TEMP 36.7; O2SAT 100
[2025-03-13 02:20] LABS: Hematocrit 36.8 % (37.0-47.0); Hemoglobin 11.9 g/dL (12.0-15.0); Immature Granulocyte Percent A 0.5 % (0-0.5); Lymphocytes Absolute Auto 2.61 K/mm3 (0.9-3.2); Mean Corpuscular HGB Conc 32.3 g/dl (32-36); Mean Corpuscular Hemoglobin 29.7 pg (26-34); Mean Corpuscular Volume 91.8 fl (80-100); Nucleated Red Blood Cells Absolute Auto 0.000 K/mm3 (0.0-0.012); Nucleated Red Blood Cells Perc 0.0 % (0.0-0.2); Platelet Count Result 365 k/mm3 (150-375); Red Blood Count 4.01 M/mm3 (4.2-5.4); White Blood Count 7.4 K/mm3 (4.5-10.0)
--- NOTE | 2025-03-13 02:22 | PC.NURSE ---
VBG at bedside w order label. Respiratory made aware.
[2025-03-13 02:31] LABS: Fractional Inspired Oxygen 21 %; HCO3 VBG 30.1 mEq/l (24.0-30.0); PCO2 VBG 34.5 mmHg (42.0-48.0); PO2 VBG 38.0 mmHg (35.0-45.0)
[2025-03-13 02:40] LABS: Alanine Aminotransferase 30 U/L (6-35); Albumin Level 3.1 g/dL (3.5-5.1); Alkaline Phosphatase 109 U/L (38-126); Anion Gap 5 mmol/L (4-12); Aspartate Amino Transferase 36 U/L (14-36); Bilirubin,Total 0.7 mg/dL (0.2-1.3); Blood Urea Nitrogen 11 mg/dL (7-17); Calcium 9.1 mg/dL (8.4-10.2); Carbon Dioxide 32 mmol/L (22-30); Chloride 90 mmol/L (98-107); Estimated Glomerular Filt Rate > 60; Glucose 319 mg/dL (65-110); Magnesium 1.9 mg/dL (1.6-2.3); Potassium 3.5 mmol/L (3.4-5.0); Sodium 127 mmol/L (137-145); Total Protein 6.4 g/dL (6.3-8.2)
[2025-03-13 02:54] LABS: pH VBG 7.558 (7.300-7.400)
[2025-03-13 03:00] LABS: Beta-Hydroxybutyrate/Acetoace. 1.27 mmol/L (0.02-0.27)
[2025-03-13] MEDS: IBUPROFEN 600 MG TABLET PO (03:04)
[2025-03-13 03:34] LABS: Add Urine Microscopic? YES; Appearance Urine Clear (Clear); Glucose Urine UA 3+ mg/dL (Negative); Leukocyte Esterase Ur Negative LEU/UL (Negative); Nitrate Urine Positive (Negative); Non Pathogenic Casts 0-2; Specific Grav Ur 1.021 (1.001-1.035)
[2025-03-13] MEDS: INSULIN ASPART (*BKC) 100 UNITS/ML 7 UNITS SUB-Q (04:08)
[2025-03-13 04:10] VITALS: BP 155/81; PULSE 88; RESP 16; O2SAT 99
--- NOTE | 2025-03-13 06:55 | ADMGEN ---
This patient, Sarahi Enciso, was admitted to 3 Med Surg Room 327-01. Patient/family oriented to hospital policies and general routines including ID bracelet, bed and alarms, visiting hours, pain management, procedures, bathroom and other care routines, personal items, smoking policy, room service/diet, and visiting hours. Information on how to activate the Rapid Response Team has been discussed. Patient/Family are encouraged to report perceived risks to care and to ask questions if they do not understand what they are told or what they should do.
[2025-03-13 07:11] VITALS: BMI 28.0
--- NOTE | 2025-03-13 07:27 | P.HP_ITS ---
H&P: HPI History of Present Illness Date/Time: 03/13/25 07:27 Chief Complaint: Recheck/Abnormal Lab/Rx Narrative: Sarahi Enciso is a 64-year-old female who with a past medical history of HTN, Vit-D deficiency, obesity, gestational diabetes mellitus, and arthritis who presents to the hospital with elevated blood sugars. She was discharged from the hospital two days ago after an episode of DKA and generalized weakness. She had imagining of her lower spine which showed osteoarthritis and was ultimately discharged home after refusing SNF placement and opting for home health services. At that time she was not discharged on insulin regimen or appropriate treatment upon discharge and is now presenting with weakness, dehydration and polyuria. She denies any chest pain, shortness a breath, nausea/vomiting, fev er/chills, back pain, or diarrhea. Denies any recent illnesses or recent travel. Patient is accompanied by who states that they bought a glucose monitor and have been checking blood sugars at home and they have been in the 300-400s. Upon arrival to ED, no signs of DKA but was found to be severely hyperglycemic and dehydrated. She was given additional fluids and insulin which subsequently d ropped her glucose. ED Workup: 139/78, 96.7? C, 90 HR, 18 RR, 96% on RA WBC 7.4, 11.9 Hgb, Hct 36.8, 127 Na, 3.5 K, 11 BUN, 0.39 Cr, 365 plt, 319 glucose UA: 3+ glucose, 1+ ketones, positive nitrates, 2+ bacteria Chest x-ray: No acute cardiopulmonary disease Urine cultures pending Review of Systems Review of Systems: All systems reviewed & are unremarkable except as noted in HPI and below PMFSH Past Medical History Medical History Obesity Degenerative joint disease of left hip Right knee DJD Nausea Degenerative joint disease (DJD) of hip Encounter for screening mammogram for breast cancer Screening for osteoporosis Osteoarthritis of hip Essential (primary) hypertension Type 2 diabetes mellitus Elevated blood pressure reading Vitamin D deficiency Fatigue Screening for lipoid disorders Screening for metabolic disorder Allergies Surgical History Surgical History S/P total hip arthroplasty History of arthroscopy of left knee History of section complicating Family History Family History Father Cancer Diabetes mellitus Hypertension Mother Diabetes mellitus Hypertension Depression Anxiety Sibling Diabetes mellitus Hypertension Social History Social History Social History: Caffeine-coffee Smoking status: Never smoker Alcohol intake: never Substance use: never Substance use type: does not use Lack of Transportation: No Lack of Food: Never True Current Housing: I Have Housing Concerned About Future Housing: No Difficulty Paying Gas/Electric Bills: Decline to Answer Difficulty Paying for Meds: Decline to Answer Currently Unemployed: Decline to Answer Education: Decline to Answer Difficulty w/ Childcare or Family Care: Decline to Answer Living arrangements: with family Additional living arrangements comments: SPOUSE Gender identity (if verbalized by the patient): Female Spiritual care concerns: No Meds Home Medications and Allergies Home Medications ?Medication ?Instructions ?Recorded ?Confirmed ?Type Tylenol pain patch pain 03/13/25 History Allergies Allergy/AdvReac Type Severity Reaction Status Date / Time latex Allergy Intermediate REDNESS, Verified 03/13/25 06:02 RASH Penicillins AdvReac Intermediate DECREASED Verified 03/13/25 06:02 HEART RATE and rash fentanyl AdvReac Mild DIZZINESS, Verified 03/13/25 06:02 HEADACHE Vital Signs Vital Signs - 24 hr 03/12/25 22:07 03/13/25 02:19 03/13/25 04:10 Temperature 98.1 F Pulse Rate 90 84 88 Respiratory Rate 18 17 16 Blood Pressure 139/78 161/86 H 155/81 H Pulse Oximetry 96 100 99 Oxygen Delivery Room Air Room Air Exam Narrative: Gen - ill appearing female in no acute respiratory distress who is nontoxic- appearing lying semi recumbent in bed HEENT - normocephalic. Atraumatic. Pupils equal round and reactive. Extraocular motions intact. Sclera clear and anicteric. Nares patent. Oropharynx was clear. No oral lesions. Moist mucous membranes. Tongue was midline. Palate angie symmetrically. No facial asymmetry. Neck - neck was supple. No dominant adenopathy, thyromegaly or masses. 2+ carotid upstrokes without bruits. Chest - lungs are clear to auscultation bilaterally. No wheezes or crackles. Breast exam was deferred. CV - heart was regular rate and rhythm. S1-S2. No murmurs gallops or rubs. Abd - abdomen was soft. Nontender. Nondistended. Positive bowel sounds. No organomegaly or masses. Ext - no clubbing, cyanosis or edema. 2+ DP pulses bilaterally. Neuro - patient is alert and oriented x4. Strength is 5/5 in both upper and lower extremities. Cranial nerves 2-12 are intact. Speech is clear. Psych - normal mood and affect. Patient is pleasant and cooperative. Skin - warm and dry. No rashes noted. H&P: Results Labs Labs: Short CBC 03/13/25 Range/Units 02:16 WBC 7.4 (4.5-10.0) K/mm3 Hgb 11.9 L (12.0-15.0) g/dL Hct 36.8 L (37.0-47.0) % Plt Count 365 (150-375) k/mm3 BMP 03/13/25 02:16 Sodium 127 L Potassium 3.5 Chloride 90 L Carbon Dioxide 32 H BUN 11 Creatinine 0.39 L Glucose 319 H Calcium 9.1 Liver Function 03/13/25 Range/Units 02:16 Total Bilirubin 0.7 (0.2-1.3) mg/dL AST 36 (14-36) U/L ALT 30 (6-35) U/L Alkaline Phosphatase 109 (38-126) U/L Albumin 3.1 L (3.5-5.1) g/dL Urine 03/13/25 Range/Units 03:21 Urine Color Yellow (Yellow) Urine Appearance Clear (Clear) Urine pH 7.0 (5.0-9.0) Ur Specific [place] 1.021 (1.001-1.035) Urine Protein Negative (Negative) mg/dL Urine Glucose (UA) 3+ H (Negative) mg/dL Assessment and Plan Assessment and plan (1) Severe hyperglycemia due to diabetes mellitus: Code(s): E11.65 - Type 2 diabetes mellitus with hyperglycemia Status: Acute Assessment and Plan: * Upon arrival to ED: Glucose ranges were in 300s-400s, c/o generalized malaise/weakness/polyuria. No sign of DKA but was dehydrated * Hemodynamically stable: Non tachycardic, non-tachypneic, afebrile, non-hypoxic * Was given additional fluids and insulin in ED - subsequent decrease in glucose levels * Admitted for observation, started on moderate SSI w/ additional IVFs + maintenance fluids * 03/13: Glucose 194-209 * Continue moderate dose SSI, IVF(NS @ 75mls/hr), hypoglycemia protocol orders, and Insulin glargine 7 units HS * Upon discharge - ensure appropriate diabetes discharge orders have been ordered and that the patient has appropriate follow up with her PCP regarding management of diabetes (2) Weakness: Code(s): R53.1 - Weakness Status: Acute Assessment and Plan: * See above (3) Type 2 diabetes mellitus: Qualifiers: Diabetes mellitus complication status: with other specified complication Diabetes mellitus terminal manager insulin use: without mcc use Qualified Code(s): E11.69 - Type 2 diabetes mellitus with other specified complication Code(s): E11.9 - Type 2 diabetes mellitus without complications Status: Acute Assessment and Plan: * Hypoglycemia protocol * POC blood glucose ACHS * Correct regimen ordered - moderate dose TIDWM and HS * A1C 12.0% (03/05/2025) (4) Essential (primary) hypertension: Code(s): I10 - Essential (primary) hypertension Status: Acute Assessment and Plan: * Patient's blood pressure was reviewed on 03/13 * Blood pressure remains well controlled. * 155/81 (5) Electrolyte abnormality: Code(s): E87.8 - Other disorders of electrolyte and fluid balance, not elsewhere classified Status: Acute Assessment and Plan: * Upon arrival to ED: Na 127, K 3.5 * Likely 2/2 to overhydration * Monitor daily labs * 03/13: Na 133, K 3.1 * Will give 40meq K supplementation Quality VTE Prophylaxis VTE prophylaxis: pharmacologic ordered
[2025-03-13 07:42] LABS: Hematocrit 34.6 % (37.0-47.0); Hemoglobin 11.2 g/dL (12.0-15.0); Immature Granulocyte Percent A 0.5 % (0-0.5); Lymphocytes Absolute Auto 1.99 K/mm3 (0.9-3.2); Mean Corpuscular HGB Conc 32.4 g/dl (32-36); Mean Corpuscular Hemoglobin 30.1 pg (26-34); Mean Corpuscular Volume 93.0 fl (80-100); Nucleated Red Blood Cells Absolute Auto 0.000 K/mm3 (0.0-0.012); Nucleated Red Blood Cells Perc 0.0 % (0.0-0.2); Platelet Count Result 321 k/mm3 (150-375); Red Blood Count 3.72 M/mm3 (4.2-5.4); White Blood Count 5.6 K/mm3 (4.5-10.0)
[2025-03-13 08:12] LABS: Alanine Aminotransferase 26 U/L (6-35); Albumin Level 2.6 g/dL (3.5-5.1); Alkaline Phosphatase 90 U/L (38-126); Anion Gap 6 mmol/L (4-12); Aspartate Amino Transferase 26 U/L (14-36); Bilirubin,Total 0.3 mg/dL (0.2-1.3); Blood Urea Nitrogen 7 mg/dL (7-17); Calcium 8.2 mg/dL (8.4-10.2); Carbon Dioxide 28 mmol/L (22-30); Chloride 99 mmol/L (98-107); Estimated CRCL calculation 114 ml/min; Estimated Glomerular Filt Rate > 60; Glucose 194 mg/dL (65-110); Potassium 3.1 mmol/L (3.4-5.0); Sodium 133 mmol/L (137-145); Total Protein 5.4 g/dL (6.3-8.2)
[2025-03-13] MEDS: SODIUM CHLORIDE 0.9% IV 1,000 ML 150 ML IV CONT (08:14)
[2025-03-13] MEDS: POTASSIUM CHLORIDE 20 MEQ ER TABLET 40 MEQ PO (08:32)
[2025-03-13] MEDS: INSULIN ASPART (*BKC) 100 UNITS/ML SUB-Q ×2 (12:22→17:56)
[2025-03-13 14:00] VITALS: BP 134/70; PULSE 89; RESP 16; TEMP 36.9; O2SAT 99
[2025-03-13] MEDS: ACETAMINOPHEN 325 MG TABLET 650 MG PO ×2 (14:55→21:42)
[2025-03-13] MEDS: SODIUM CHLORIDE 0.9% IV 1,000 ML 75 ML IV CONT (15:01)
[2025-03-13] MEDS: INSULIN GLARGINE (*BKC) 100 UNITS/ML 7 UNITS SUB-Q (20:30)
[2025-03-13 21:20] VITALS: BP 150/75; PULSE 86; RESP 18; TEMP 36.6; O2SAT 100
[2025-03-14] MEDS: SODIUM CHLORIDE 0.9% IV 1,000 ML 75 ML IV CONT (02:10)
[2025-03-14] MEDS: ACETAMINOPHEN 325 MG TABLET 650 MG PO (05:07)
[2025-03-14 06:00] VITALS: BP 155/71; PULSE 91; RESP 18; TEMP 36.4; O2SAT 100
[2025-03-14 06:13] LABS: Hematocrit 35.0 % (37.0-47.0); Hemoglobin 11.1 g/dL (12.0-15.0); Immature Granulocyte Percent A 0.5 % (0-0.5); Lymphocytes Absolute Auto 2.10 K/mm3 (0.9-3.2); Mean Corpuscular HGB Conc 31.7 g/dl (32-36); Mean Corpuscular Hemoglobin 29.6 pg (26-34); Mean Corpuscular Volume 93.3 fl (80-100); Nucleated Red Blood Cells Absolute Auto 0.000 K/mm3 (0.0-0.012); Nucleated Red Blood Cells Perc 0.0 % (0.0-0.2); Platelet Count Result 326 k/mm3 (150-375); Red Blood Count 3.75 M/mm3 (4.2-5.4); White Blood Count 6.1 K/mm3 (4.5-10.0)
[2025-03-14 06:42] LABS: Alanine Aminotransferase 27 U/L (6-35); Albumin Level 2.6 g/dL (3.5-5.1); Alkaline Phosphatase 97 U/L (38-126); Anion Gap 3 mmol/L (4-12); Aspartate Amino Transferase 32 U/L (14-36); Bilirubin,Total 0.3 mg/dL (0.2-1.3); Blood Urea Nitrogen 5 mg/dL (7-17); Calcium 8.6 mg/dL (8.4-10.2); Carbon Dioxide 29 mmol/L (22-30); Chloride 100 mmol/L (98-107); Estimated CRCL calculation 109 ml/min; Estimated Glomerular Filt Rate > 60; Glucose 257 mg/dL (65-110); Potassium 3.7 mmol/L (3.4-5.0); Sodium 132 mmol/L (137-145); Total Protein 5.8 g/dL (6.3-8.2)
[2025-03-14] MEDS: ENOXAPARIN 40 MG/0.4 ML SYRINGE SUB-Q (08:24)
[2025-03-14] MEDS: INSULIN ASPART (*BKC) 100 UNITS/ML SUB-Q ×3 (08:24→17:13)
[2025-03-14] MEDS: IBUPROFEN 600 MG TABLET PO ×3 (10:34→23:35)
[2025-03-14] MEDS: CYCLOBENZAPRINE HCL 5 MG TABLET PO ×2 (11:52→21:34)
--- NOTE | 2025-03-14 12:24 | P.PNIM_ITS ---
Progress Note: A&P Assessment and Plan (1) Severe hyperglycemia due to diabetes mellitus: Code(s): E11.65 - Type 2 diabetes mellitus with hyperglycemia Status: Acute Assessment and Plan: * Upon arrival to ED: Glucose ranges were in 300s-400s, c/o generalized malaise/weakness/polyuria. No sign of DKA but was dehydrated * Hemodynamically stable: Non tachycardic, non-tachypneic, afebrile, non-hypoxic * Was given additional fluids and insulin in ED - subsequent decrease in glucose levels * Admitted for observation, started on moderate SSI w/ additional IVFs + maintenance fluids * 03/14: Glucose 190s-250s * Continue moderate dose SSI, IVF(NS @ 75mls/hr), hypoglycemia protocol orders, and Insulin glargine 7 units HS * Upon discharge - ensure appropriate diabetes discharge orders have been ordered and that the patient has appropriate follow up with her PCP regarding management of diabetes * Increase Glargine from 7-> 16 units HS (2) Weakness: Code(s): R53.1 - Weakness Status: Acute Assessment and Plan: * See above (3) Type 2 diabetes mellitus: Qualifiers: Diabetes mellitus manager terminal insulin use: without manager terminal use Diabetes mellitus complication status: with other specified complication Qualified Code(s): E11.69 - Type 2 diabetes mellitus with other specified complication Code(s): E11.9 - Type 2 diabetes mellitus without complications Status: Acute Assessment and Plan: * Hypoglycemia protocol * POC blood glucose ACHS * Correct regimen ordered - moderate dose TIDWM and HS * A1C 12.0% (03/05/2025) (4) Essential (primary) hypertension: Code(s): I10 - Essential (primary) hypertension Status: Acute Assessment and Plan: * Patient's blood pressure was reviewed on 03/13 * Blood pressure remains well controlled. * 155/81 (5) Electrolyte abnormality: Code(s): E87.8 - Other disorders of electrolyte and fluid balance, not elsewhere classified Status: Acute Assessment and Plan: * Upon arrival to ED: Na 127, K 3.5 * Likely 2/2 to overhydration * Monitor daily labs * 03/14: Na 133, K 3.7 (6) Right ankle pain: Code(s): M25.571 - Pain in right ankle and joints of right foot Status: Acute Assessment and Plan: * Endorsing worsening R ankle pain, states it has been going on for several weeks * No known injury or trauma * On exam: No overlying skin changes, swelling or deformity * R ankle XR: There are no fractures or dislocations.Joint space narrowing, subchondral sclerosis, subchondral cyst formation and osteophyte formation, compatible with mild osteoarthritis. Calcaneal enthesopathy. * Rest, Ice, ibuprofen & tylenol prn Subjective Date/time seen: 03/14/25 12:24 Interval history: 64-year-old female who with a past medical history of HTN, Vit-D deficiency, obesity, gestational diabetes mellitus, and arthritis who presents to the hospital with elevated blood sugars. She was discharged from the hospital two days ago after an episode of DKA and generalized weakness. 03/14/2025 Patient sitting in bed at time of examination. Glucose has been consistently in the mid 200s throughout the day, will increase glargine from 7 units to 16 units. Patient is also endorsing right ankle pain, no known injury or trauma. States that this has been going on for several weeks. Will obtain x-ray of right ankle, but no overlying skin changes, swelling or deformity. Patient otherwise stable and has no complaints or concerns at this time. Will ensure discharge orders for diabetes is placed. Review of Systems Review of Systems: All systems reviewed & are unremarkable except as noted in HPI and below Exam Narrative: Gen - ill appearing female in no acute respiratory distress who is nontoxic- appearing lying semi recumbent in bed HEENT - normocephalic. Atraumatic. Pupils equal round and reactive. Extraocular motions intact. Sclera clear and anicteric. Nares patent. Or opharynx was clear. No oral lesions. Moist mucous membranes. Tongue was midline. Palate angie symmetrically. No facial asymmetry. Neck - neck was supple. No dominant adenopathy, thyromegaly or masses. 2+ carotid upstrokes without bruits. Chest - lungs are clear to auscultation bilaterally. No wheezes or crackles. Breast exam was deferred. CV - heart was regular rate and rhythm. S1-S2. No murmurs gallops or rubs. Abd - abdomen was soft. Nontender. Nondistended. Positive bowel sounds. No organomegaly or masses. Ext - no clubbing, cyanosis or edema. 2+ DP pulses bilaterally. Neuro - patient is alert and oriented x4. Strength is 5/5 in both upper and lower extremities. Cranial nerves 2-12 are intact. Speech is clear. Psych - normal mood and affect. Patient is pleasant and cooperative. Skin - warm and dry. No rashes noted. Objective Data Vital Signs Vital Signs: Vital Signs - 24 hr 03/13/25 14:00 03/13/25 21:20 03/14/25 06:00 Temperature 98.5 F 97.8 F 97.6 F Pulse Rate 89 86 91 Respiratory Rate 16 18 18 Blood Pressure 134/70 150/75 H 155/71 H Pulse Oximetry 99 100 100 Intake/Output Intake/Output: Intake & Output 03/11/25 03/12/25 03/13/25 03/14/25 23:59 23:59 23:59 23:59 Intake Total 3600 1476.3 Balance 3600 1476.3 Meds/Results Medications: Active Medications Generic Name Dose Route Start Last Admin Trade Name Freq PRN Reason Stop Dose Admin Acetaminophen 650 mg 03/13/25 13:38 03/14/25 05:07 Acetaminophen 325 Mg Tablet PO 650 mg Q4H PRN Administration Headache Cyclobenzaprine HCl 5 mg 03/14/25 10:37 03/14/25 11:52 Cyclobenzaprine Hcl 5 Mg Tablet PO 5 mg Q8H PRN Administration Muscle Spasm Dextrose 12.5 gm 03/13/25 05:02 Dextrose 50% 25 Gm/50 Ml Syringe IV PUSH PRN PRN Hypoglycemia Protocol Enoxaparin Sodium 40 mg 03/14/25 09:00 03/14/25 08:24 Enoxaparin 40 Mg/0.4 Ml Syringe SUB-Q 40 mg DAILY JESUS Administration Glucagon 1 mg 03/13/25 05:02 Glucagon For Inj 1 Mg Vial IM PRN PRN Hypoglycemia Protocol Glucose 15 gm 03/13/25 05:02 Glucose Oral Gel 15 Gm Of Glucse In 37.5 Gm Tube PO PRN PRN Hypoglycemia Protocol Dextrose 1,000 mls @ 100 mls/hr 03/13/25 05:02 Dextrose 5% 1,000 Ml IVPB PRN PRN Hypoglycemia Protocol Ibuprofen 600 mg 03/14/25 10:27 03/14/25 10:34 Ibuprofen 600 Mg Tablet PO 600 mg Q6H PRN Administration Cramping Insulin Aspart 3 - 6 units 03/13/25 08:00 03/14/25 11:45 Insulin Aspart (*Bkc) 100 Units/Ml SUB-Q 3 units TIDWM [facility] Administration Protocol Insulin Glargine 16 units 03/14/25 21:00 Insulin Glargine (*Bkc) 100 Units/Ml 0.25 units/kg (16 units) SUB-Q HS [facility] Radiology Results: ITS Impressions Chest X-Ray 03/13/25 09:25 IMPRESSION: 1. No acute cardiopulmonary disease. Labs Labs: Laboratory Results - last 24 hr 03/13/25 03/13/25 03/13/25 16:15 20:21 23:20 WBC RBC Hgb Hct MCV MCH MCHC RDW Plt Count MPV Immature Gran % (Auto) Neut % (Auto) Lymph % (Auto) [place] % (Auto) Eos % (Auto) Baso % (Auto) Lymph # (Auto) [place] # (Auto) Eos # (Auto) Baso # (Auto) Abs Immat Gran (auto) Absolute Neuts (auto) Absolute Nucleated RBC Nucleated RBC % Sodium Potassium Chloride Carbon Dioxide Anion Gap BUN Creatinine Estim Creat Clear Calc Estimated GFR Glucose POC Capillary Glucose 266 H 226 H 304 H Calcium Total Bilirubin AST ALT Alkaline Phosphatase Total Protein Albumin 03/14/25 03/14/25 03/14/25 05:53 07:57 11:37 WBC 6.1 RBC 3.75 L Hgb 11.1 L Hct 35.0 L MCV 93.3 MCH 29.6 MCHC 31.7 L RDW 12.8 Plt Count 326 MPV 8.8 Immature Gran % (Auto) 0.5 Neut % (Auto) 53.0 Lymph % (Auto) 34.3 [place] % (Auto) 10.4 H Eos % (Auto) 1.1 Baso % (Auto) 0.7 Lymph # (Auto) 2.10 [place] # (Auto) 0.6 Eos # (Auto) 0.1 Baso # (Auto) 0.0 Abs Immat Gran (auto) 0.03 Absolute Neuts (auto) 3.3 Absolute Nucleated RBC 0.000 Nucleated RBC % 0.0 Sodium 132 L Potassium 3.7 Chloride 100 Carbon Dioxide 29 Anion Gap 3 L BUN 5 L Creatinine 0.34 L Estim Creat Clear Calc 109 Estimated GFR > 60 Glucose 257 H POC Capillary Glucose 253 H 237 H Calcium 8.6 Total Bilirubin 0.3 AST 32 ALT 27 Alkaline Phosphatase 97 Total Protein 5.8 L Albumin 2.6 L Quality VTE Prophylaxis VTE prophylaxis: pharmacologic ordered
[2025-03-14 14:00] VITALS: BP 146/90; PULSE 81; RESP 19; TEMP 36.1; O2SAT 98
[2025-03-14 21:14] VITALS: BP 141/88; PULSE 83; RESP 18; TEMP 36.4; O2SAT 99
[2025-03-14] MEDS: INSULIN GLARGINE (*BKC) 100 UNITS/ML 16 UNITS SUB-Q (21:28)
[2025-03-15 06:00] VITALS: BP 134/81; PULSE 77; RESP 18; TEMP 36.6; O2SAT 100
[2025-03-15 06:09] LABS: Hematocrit 34.0 % (37.0-47.0); Hemoglobin 10.8 g/dL (12.0-15.0); Immature Granulocyte Percent A 0.7 % (0-0.5); Lymphocytes Absolute Auto 1.70 K/mm3 (0.9-3.2); Mean Corpuscular HGB Conc 31.8 g/dl (32-36); Mean Corpuscular Hemoglobin 29.8 pg (26-34); Mean Corpuscular Volume 93.9 fl (80-100); Nucleated Red Blood Cells Absolute Auto 0.000 K/mm3 (0.0-0.012); Nucleated Red Blood Cells Perc 0.0 % (0.0-0.2); Platelet Count Result 331 k/mm3 (150-375); Red Blood Count 3.62 M/mm3 (4.2-5.4); White Blood Count 5.5 K/mm3 (4.5-10.0)
[2025-03-15 06:25] LABS: Alanine Aminotransferase 40 U/L (6-35); Albumin Level 2.6 g/dL (3.5-5.1); Alkaline Phosphatase 88 U/L (38-126); Anion Gap 4 mmol/L (4-12); Aspartate Amino Transferase 50 U/L (14-36); Bilirubin,Total 0.5 mg/dL (0.2-1.3); Blood Urea Nitrogen 6 mg/dL (7-17); Calcium 8.8 mg/dL (8.4-10.2); Carbon Dioxide 29 mmol/L (22-30); Chloride 100 mmol/L (98-107); Estimated CRCL calculation 150 ml/min; Estimated Glomerular Filt Rate > 60; Glucose 234 mg/dL (65-110); Potassium 3.6 mmol/L (3.4-5.0); Sodium 133 mmol/L (137-145); Total Protein 5.6 g/dL (6.3-8.2)
[2025-03-15] MEDS: INSULIN ASPART (*BKC) 100 UNITS/ML SUB-Q ×4 (08:40→17:42)
[2025-03-15] MEDS: ENOXAPARIN 40 MG/0.4 ML SYRINGE SUB-Q (08:43)
[2025-03-15 09:11] VITALS: O2SAT 98
[2025-03-15] MEDS: ACETAMINOPHEN 325 MG TABLET 650 MG PO ×2 (10:58→16:19)
[2025-03-15 14:00] VITALS: BP 145/66; PULSE 100; RESP 20; TEMP 36.6; O2SAT 99
--- NOTE | 2025-03-15 15:10 | P.PNIM_ITS ---
Progress Note: A&P Assessment and Plan (1) Severe hyperglycemia due to diabetes mellitus: Code(s): E11.65 - Type 2 diabetes mellitus with hyperglycemia Status: Acute Assessment and Plan: * Upon arrival to ED: Glucose ranges were in 300s-400s, c/o generalized malaise/weakness/polyuria. No sign of DKA but was dehydrated * Hemodynamically stable: Non tachycardic, non-tachypneic, afebrile, non-hypoxic * Was given additional fluids and insulin in ED - subsequent decrease in glucose levels * Admitted for observation, started on moderate SSI w/ additional IVFs + maintenance fluids * Magic under better control. * Continue moderate dose SSI, IVF(NS @ 75mls/hr), hypoglycemia protocol orders, and Insulin glargine 18 units HS * Upon discharge - ensure appropriate diabetes discharge orders have been ordered and that the patient has appropriate follow up with her PCP regarding management of diabetes * Glargine increased 18 units HS, lispro 5 units before meals (2) Weakness: Code(s): R53.1 - Weakness Status: Acute Assessment and Plan: * See above (3) Type 2 diabetes mellitus: Qualifiers: Diabetes mellitus intermediate insulin use: without intermediate use Diabetes mellitus complication status: with other specified complication Qualified Code(s): E11.69 - Type 2 diabetes mellitus with other specified complication Code(s): E11.9 - Type 2 diabetes mellitus without complications Status: Acute Assessment and Plan: * Hypoglycemia protocol * POC blood glucose ACHS * Correct regimen ordered - moderate dose TIDWM and HS * A1C 12.0% (03/05/2025) (4) Essential (primary) hypertension: Code(s): I10 - Essential (primary) hypertension Status: Acute Assessment and Plan: * Patient's blood pressure was reviewed on 03/13 * Blood pressure remains well controlled. * 134/81 (5) Electrolyte abnormality: Code(s): E87.8 - Other disorders of electrolyte and fluid balance, not elsewhere classified Status: Acute Assessment and Plan: * Upon arrival to ED: Na 127, K 3.5 * Improving * Monitor daily labs * 03/15: Na 133, K 3.6 (6) Right ankle pain: Code(s): M25.571 - Pain in right ankle and joints of right foot Status: Acute Assessment and Plan: * Endorsing worsening R ankle pain, states it has been going on for several weeks * No known injury or trauma * On exam: Redness, swelling, tenderness, warmness * R ankle XR: There are no fractures or dislocations.Joint space narrowing, subchondral sclerosis, subchondral cyst formation and osteophyte formation, compatible with mild osteoarthritis. Calcaneal enthesopathy. * Rest, Ice, ibuprofen & tylenol prn * Start Rocephin * PTOT Subjective Date/time seen: 03/15/25 15:10 Interval history: 64-year-old female who with a past medical history of HTN, Vit-D deficiency, obesity, gestational diabetes mellitus, and arthritis who presents to the hospital with elevated blood sugars. She was discharged from the hospital two days ago after an episode of DKA and generalized weakness. 03/14/2025 Patient sitting in bed at time of examination. Glucose has been consistently in the mid 200s throughout the day, will increase glargine from 7 units to 16 units. Patient is also endorsing right ankle pain, no known injury or trauma. States that this has been going on for several weeks. Will obtain x-ray of right ankle, but no overlying skin changes, swelling or deformity. Patient otherwise stable and has no complaints or concerns at this time. Will ensure discharge orders for diabetes is placed. 03/15/25 Patient was seen examined at bedside. Her blood sugars under better control. She is complaining of right ankle pain. X-ray negative for fracture. Patient has difficulty moving right ankle. Exam, right ankle is swollen, red, tender in touch. We will start treatment for possible cellulitis. PT OT ordered. Review of Systems Review of Systems: All systems reviewed & are unremarkable except as noted in HPI and below Exam Narrative: Gen - ill appearing female in no acute respiratory distress who is nontoxic- appearing lying semi recumbent in bed HEENT - normocephalic. Atraumatic. Pupils equal round and reactive. Extraocular motions intact. Sclera clear and anicteric. Nares patent. Oropharynx was clear. No oral lesions. Moist mucous membranes. Tongue was midline. Palate angie symmetrically. No facial asymmetry. Neck - neck was supple. No dominant adenopathy, thyromegaly or masses. 2+ carotid upstrokes without bruits. Chest - lungs are clear to auscultation bilaterally. No wheezes or crackles. Breast exam was deferred. CV - heart was regular rate and rhythm. S1-S2. No murmurs gallops or rubs. Abd - abdomen was soft. Nontender. Nondistended. Positive bowel sounds. No organomegaly or masses. Ext - no clubbing, cyanosis or edema. 2+ DP pulses bilaterally. Right ankle swelling, redness, tender Neuro - patient is alert and oriented x4. Strength is 5/5 in both upper and lower extremities. Cranial nerves 2-12 are intact. Speech is clear. Psych - normal mood and affect. Patient is pleasant and cooperative. Skin - warm and dry. No rashes noted. Objective Data Vital Signs Vital Signs: Vital Signs - 24 hr 03/14/25 20:20 03/14/25 21:14 03/15/25 06:00 Temperature 97.6 F 97.9 F Pulse Rate 83 77 Respiratory Rate 18 18 Blood Pressure 141/88 H 134/81 Pulse Oximetry 99 100 Oxygen Delivery Room Air 03/15/25 08:00 03/15/25 09:11 Temperature Pulse Rate Respiratory Rate Blood Pressure Pulse Oximetry 98 Oxygen Delivery Room Air Room Air Intake/Output Intake/Output: Intake & Output 03/12/25 03/13/25 03/14/25 03/15/25 23:59 23:59 23:59 23:59 Intake Total 3600 2356.3 1140 Balance 3600 2356.3 1140 Meds/Results Medications: Active Medications Generic Name Dose Route Start Last Admin Trade Name Freq PRN Reason Stop Dose Admin Acetaminophen 650 mg 03/13/25 13:38 03/15/25 10:58 Acetaminophen 325 Mg Tablet PO 650 mg Q4H PRN Administration Headache Cyclobenzaprine HCl 5 mg 03/14/25 10:37 03/14/25 21:34 Cyclobenzaprine Hcl 5 Mg Tablet PO 5 mg Q8H PRN Administration Muscle Spasm Dextrose 12.5 gm 03/13/25 05:02 Dextrose 50% 25 Gm/50 Ml Syringe IV PUSH PRN PRN Hypoglycemia Protocol Enoxaparin Sodium 40 mg 03/14/25 09:00 03/15/25 08:43 Enoxaparin 40 Mg/0.4 Ml Syringe SUB-Q 40 mg DAILY JESUS Administration Glucagon 1 mg 03/13/25 05:02 Glucagon For Inj 1 Mg Vial IM PRN PRN Hypoglycemia Protocol Glucose 15 gm 03/13/25 05:02 Glucose Oral Gel 15 Gm Of Glucse In 37.5 Gm Tube PO PRN PRN Hypoglycemia Protocol Dextrose 1,000 mls @ 100 mls/hr 03/13/25 05:02 Dextrose 5% 1,000 Ml IVPB PRN PRN Hypoglycemia Protocol Ibuprofen 600 mg 03/14/25 10:27 03/14/25 23:35 Ibuprofen 600 Mg Tablet PO 600 mg Q6H PRN Administration Cramping Insulin Aspart 3 - 6 units 03/13/25 08:00 03/15/25 11:52 Insulin Aspart (*Bkc) 100 Units/Ml SUB-Q 5 units TIDWM [facility] Administration Protocol Insulin Glargine 16 units 03/14/25 21:00 03/14/25 21:28 Insulin Glargine (*Bkc) 100 Units/Ml 0.25 units/kg (16 units) 16 units SUB-Q Administration [facility] Radiology Results: ITS Impressions Chest X-Ray 03/13/25 09:25 IMPRESSION: 1. No acute cardiopulmonary disease. Labs Labs: Laboratory Results - last 24 hr 03/14/25 03/14/25 03/15/25 16:49 20:54 05:43 WBC 5.5 RBC 3.62 L Hgb 10.8 L Hct 34.0 L MCV 93.9 MCH 29.8 MCHC 31.8 L RDW 12.6 Plt Count 331 MPV 8.9 Immature Gran % (Auto) 0.7 H Neut % (Auto) 57.5 Lymph % (Auto) 31.0 [place] % (Auto) 8.9 H Eos % (Auto) 1.5 Baso % (Auto) 0.4 Lymph # (Auto) 1.70 [place] # (Auto) 0.5 Eos # (Auto) 0.1 Baso # (Auto) 0.0 Abs Immat Gran (auto) 0.04 H Absolute Neuts (auto) 3.2 Absolute Nucleated RBC 0.000 Nucleated RBC % 0.0 Sodium 133 L Potassium 3.6 Chloride 100 Carbon Dioxide 29 Anion Gap 4 BUN 6 L Creatinine 0.23 L Estim Creat Clear Calc 150 Estimated GFR > 60 Glucose 234 H POC Capillary Glucose 247 H 212 H Calcium 8.8 Total Bilirubin 0.5 AST 50 H ALT 40 H Alkaline Phosphatase 88 Total Protein 5.6 L Albumin 2.6 L 03/15/25 03/15/25 07:49 11:34 WBC RBC Hgb Hct MCV MCH MCHC RDW Plt Count MPV Immature Gran % (Auto) Neut % (Auto) Lymph % (Auto) [place] % (Auto) Eos % (Auto) Baso % (Auto) Lymph # (Auto) [place] # (Auto) Eos # (Auto) Baso # (Auto) Abs Immat Gran (auto) Absolute Neuts (auto) Absolute Nucleated RBC Nucleated RBC % Sodium Potassium Chloride Carbon Dioxide Anion Gap BUN Creatinine Estim Creat Clear Calc Estimated GFR Glucose POC Capillary Glucose 232 H 314 H Calcium Total Bilirubin AST ALT Alkaline Phosphatase Total Protein Albumin Quality VTE Prophylaxis VTE prophylaxis: pharmacologic ordered
[2025-03-15] MEDS: cefTRIAXone 2 GM in SODIUM CHLORIDE 0.9% IV 100 ML 200 ML IVPB (16:02)
[2025-03-15 20:00] VITALS: PULSE 87; RESP 18; O2SAT 96
[2025-03-15] MEDS: INSULIN GLARGINE (*BKC) 100 UNITS/ML 18 UNITS SUB-Q (21:40)
[2025-03-15 21:47] VITALS: PULSE 92; RESP 20; O2SAT 96
[2025-03-15] MEDS: IBUPROFEN 600 MG TABLET PO (21:52)
[2025-03-15] MEDS: CYCLOBENZAPRINE HCL 5 MG TABLET PO (21:52)
[2025-03-15 22:00] VITALS: BP 151/65; PULSE 87; RESP 18; TEMP 37.1; O2SAT 96
[2025-03-16 06:00] VITALS: BP 141/67; PULSE 70; RESP 18; TEMP 36.2; O2SAT 98
[2025-03-16 06:07] LABS: Hematocrit 35.6 % (37.0-47.0); Hemoglobin 11.1 g/dL (12.0-15.0); Immature Granulocyte Percent A 0.5 % (0-0.5); Lymphocytes Absolute Auto 1.80 K/mm3 (0.9-3.2); Mean Corpuscular HGB Conc 31.2 g/dl (32-36); Mean Corpuscular Hemoglobin 29.5 pg (26-34); Mean Corpuscular Volume 94.7 fl (80-100); Nucleated Red Blood Cells Absolute Auto 0.000 K/mm3 (0.0-0.012); Nucleated Red Blood Cells Perc 0.0 % (0.0-0.2); Platelet Count Result 343 k/mm3 (150-375); Red Blood Count 3.76 M/mm3 (4.2-5.4); White Blood Count 5.9 K/mm3 (4.5-10.0)
[2025-03-16 06:31] LABS: Alanine Aminotransferase 47 U/L (6-35); Albumin Level 2.7 g/dL (3.5-5.1); Alkaline Phosphatase 110 U/L (38-126); Anion Gap 4 mmol/L (4-12); Aspartate Amino Transferase 42 U/L (14-36); Bilirubin,Total 0.4 mg/dL (0.2-1.3); Blood Urea Nitrogen 8 mg/dL (7-17); Calcium 9.1 mg/dL (8.4-10.2); Carbon Dioxide 31 mmol/L (22-30); Chloride 98 mmol/L (98-107); Estimated CRCL calculation 118 ml/min; Estimated Glomerular Filt Rate > 60; Glucose 197 mg/dL (65-110); Potassium 3.2 mmol/L (3.4-5.0); Sodium 133 mmol/L (137-145); Total Protein 5.8 g/dL (6.3-8.2)
[2025-03-16] MEDS: ENOXAPARIN 40 MG/0.4 ML SYRINGE SUB-Q (08:38)
[2025-03-16] MEDS: INSULIN ASPART (*BKC) 100 UNITS/ML SUB-Q ×4 (08:38→17:05)
[2025-03-16] MEDS: POTASSIUM CHLORIDE 20 MEQ PACKET (FOR LIQUID) 40 MEQ PO (08:39)
[2025-03-16] MEDS: CYCLOBENZAPRINE HCL 5 MG TABLET PO ×2 (09:50→21:56)
[2025-03-16] MEDS: IBUPROFEN 600 MG TABLET PO ×2 (09:50→17:04)
[2025-03-16] MEDS: GABAPENTIN 100 MG CAPSULE PO ×2 (12:04→17:04)
[2025-03-16 14:00] VITALS: BP 150/49; PULSE 89; RESP 17; TEMP 36.2; O2SAT 100
--- NOTE | 2025-03-16 14:04 | P.PNIM_ITS ---
Progress Note: A&P Assessment and Plan (1) Severe hyperglycemia due to diabetes mellitus: Code(s): E11.65 - Type 2 diabetes mellitus with hyperglycemia Status: Acute Assessment and Plan: * Upon arrival to ED: Glucose ranges were in 300s-400s, c/o generalized malaise/weakness/polyuria. No sign of DKA but was dehydrated * Hemodynamically stable: Non tachycardic, non-tachypneic, afebrile, non-hypoxic * Was given additional fluids and insulin in ED - subsequent decrease in glucose levels * Admitted for observation, started on moderate SSI w/ additional IVFs + maintenance fluids * Magic under better control. * Continue moderate dose SSI, IVF(NS @ 75mls/hr), hypoglycemia protocol orders, and Insulin glargine 18 units HS * Upon discharge - ensure appropriate diabetes discharge orders have been ordered and that the patient has appropriate follow up with her PCP regarding management of diabetes * Glargine increased 18 units HS, lispro 5 units before meals (2) Weakness: Code(s): R53.1 - Weakness Status: Acute Assessment and Plan: * See above (3) Type 2 diabetes mellitus: Qualifiers: Diabetes mellitus snf insulin use: without snf use Diabetes mellitus complication status: with other specified complication Qualified Code(s): E11.69 - Type 2 diabetes mellitus with other specified complication Code(s): E11.9 - Type 2 diabetes mellitus without complications Status: Acute Assessment and Plan: * Hypoglycemia protocol * POC blood glucose ACHS * Correct regimen ordered - moderate dose TIDWM and HS * A1C 12.0% (03/05/2025) (4) Essential (primary) hypertension: Code(s): I10 - Essential (primary) hypertension Status: Acute Assessment and Plan: * Patient's blood pressure was reviewed on 03/13 * Blood pressure remains well controlled. * 134/81 (5) Electrolyte abnormality: Code(s): E87.8 - Other disorders of electrolyte and fluid balance, not elsewhere classified Status: Acute Assessment and Plan: * Upon arrival to ED: Na 127, K 3.5 * Improving * Monitor daily labs * 03/15: Na 133, K 3.6 (6) Right ankle pain: Code(s): M25.571 - Pain in right ankle and joints of right foot Status: Acute Assessment and Plan: * Endorsing worsening R ankle pain, states it has been going on for several weeks * No known injury or trauma * On exam: Redness, swelling, tenderness, warmness * R ankle XR: There are no fractures or dislocations.Joint space narrowing, subchondral sclerosis, subchondral cyst formation and osteophyte formation, compatible with mild osteoarthritis. Calcaneal enthesopathy. * Rest, Ice, ibuprofen & tylenol prn * Start Rocephin * PTOT Plan Patient was seen examined at bedside. Her blood sugars under better control. She is complaining of right ankle pain. X-ray negative for fracture. Patient has difficulty moving right ankle. Exam, right ankle is swollen, red, tender in touch. start treatment for possible cellulitis ceftriaxone, patient complaints of generalized pain, suspect patient may diabetes neuropathy, started patient on gabapentin, and tizanidine, will consult elementary educator for uncontrolled diabetes, will order PT OT Subjective Date/time seen: 03/16/25 14:04 Interval history: 64-year-old female who with a past medical history of HTN, Vit-D deficiency, obesity, gestational diabetes mellitus, and arthritis who presents to the hospital with elevated blood sugars. She was discharged from the hospital two days ago after an episode of DKA and generalized weakness. Patient sitting in bed at time of examination. Glucose has been consistently in the mid 200s throughout the day, will increase glargine from 7 units to 16 units. Patient is also endorsing right ankle pain, no known injury or trauma. States that this has been going on for several weeks. Will obtain x-ray of right ankle, but no overlying skin changes, swelling or deformity. Patient otherwise stable and has no complaints or concerns at this time. Will ensure discharge orders for diabetes is placed. Patient was seen examined at bedside. Her blood sugars under better control. She is complaining of right ankle pain. X-ray negative for fracture. Patient has difficulty moving right ankle. Exam, right ankle is swollen, red, tender in touch. start treatment for possible cellulitis ceftriaxone, patient complaints of generalized pain, suspect patient may diabetes neuropathy, started patient on gabapentin, and tizanidine, will consult elementary educator for uncontrolled diabetes, will order PT OT Review of Systems Review of Systems: All systems reviewed & are unremarkable except as noted in HPI and below Exam Narrative: Patient is comfortable, NAD HEENT: eyes are clear and none icteric LUNGS:CTA HEART: RR S1S2 ABD: BS+, Soft and nontender Lower extremities: no edema, RT ankle lateral aspect erythematous and tender, no red streak SKIN: nonjaundiced Neuro: grossly intact. Objective Data Vital Signs Vital Signs: Vital Signs - 24 hr 03/15/25 15:16 03/15/25 20:00 03/15/25 21:47 Temperature Pulse Rate 87 92 Respiratory Rate 18 20 Blood Pressure Pulse Oximetry 96 96 Oxygen Delivery Room Air Room Air Room Air Fraction of Inspired Oxygen 21 21 03/15/25 22:00 03/16/25 06:00 03/16/25 08:00 Temperature 37.1 C 36.2 C L Pulse Rate 87 70 Respiratory Rate 18 18 Blood Pressure 151/65 H 141/67 H Pulse Oximetry 96 98 Oxygen Delivery Room Air Fraction of Inspired Oxygen 03/16/25 11:03 Temperature Pulse Rate Respiratory Rate Blood Pressure Pulse Oximetry Oxygen Delivery Room Air Fraction of Inspired Oxygen Intake/Output Intake/Output: Intake & Output 03/13/25 03/14/25 03/15/25 03/16/25 23:59 23:59 23:59 23:59 Intake Total 3600 2356.3 2120 486 Balance 3600 2356.3 2120 486 Meds/Results Medications: Active Medications Generic Name Dose Route Start Last Admin Trade Name Freq PRN Reason Stop Dose Admin Acetaminophen 650 mg 03/13/25 13:38 03/15/25 16:19 Acetaminophen 325 Mg Tablet PO 650 mg Q4H PRN Administration Headache Cyclobenzaprine HCl 5 mg 03/14/25 10:37 03/16/25 09:50 Cyclobenzaprine Hcl 5 Mg Tablet PO 5 mg Q8H PRN Administration Muscle Spasm Dextrose 12.5 gm 03/13/25 05:02 Dextrose 50% 25 Gm/50 Ml Syringe IV PUSH PRN PRN Hypoglycemia Protocol Enoxaparin Sodium 40 mg 03/14/25 09:00 03/16/25 08:38 Enoxaparin 40 Mg/0.4 Ml Syringe SUB-Q 40 mg DAILY JESUS Administration Gabapentin 100 mg 03/16/25 13:00 03/16/25 12:04 Gabapentin 100 Mg Capsule PO 100 mg TID JESUS Administration Glucagon 1 mg 03/13/25 05:02 Glucagon For Inj 1 Mg Vial IM PRN PRN Hypoglycemia Protocol Glucose 15 gm 03/13/25 05:02 Glucose Oral Gel 15 Gm Of Glucse In 37.5 Gm Tube PO PRN PRN Hypoglycemia Protocol Dextrose 1,000 mls @ 100 mls/hr 03/13/25 05:02 Dextrose 5% 1,000 Ml IVPB PRN PRN Hypoglycemia Protocol Ceftriaxone Sodium 2 gm/ 100 mls @ 200 mls/hr 03/15/25 16:00 03/15/25 16:02 Sodium Chloride IVPB 200 mls/hr Q24H JESUS Administration Ibuprofen 600 mg 03/14/25 10:27 03/16/25 09:50 Ibuprofen 600 Mg Tablet PO 600 mg Q6H PRN Administration Cramping Insulin Aspart 3 - 6 units 03/13/25 08:00 03/16/25 12:05 Insulin Aspart (*Bkc) 100 Units/Ml SUB-Q 3 units TIDWM JESUS Administration Protocol Insulin Aspart 5 units 03/15/25 17:00 03/16/25 12:05 Insulin Aspart (*Bkc) 100 Units/Ml 0.083 units/kg (5 units) 5 units SUB-Q Administration TIDWM [facility] Insulin Glargine 18 units 03/15/25 21:00 03/15/25 21:40 Insulin Glargine (*Bkc) 100 Units/Ml SUB-Q 18 units HS [facility] Administration Tizanidine HCl 2 mg 03/16/25 10:05 03/16/25 10:14 Tizanidine Hcl 2 Mg Tablet PO Not Given QAM [facility] Radiology Results: ITS Impressions Chest X-Ray 03/13/25 09:25 IMPRESSION: 1. No acute cardiopulmonary disease. Labs Labs: Laboratory Results - last 24 hr 03/15/25 03/15/25 03/16/25 16:50 20:50 05:49 WBC 5.9 RBC 3.76 L Hgb 11.1 L Hct 35.6 L MCV 94.7 MCH 29.5 MCHC 31.2 L RDW 12.5 Plt Count 343 MPV 8.7 Immature Gran % (Auto) 0.5 Neut % (Auto) 58.2 Lymph % (Auto) 30.4 [place] % (Auto) 8.4 Eos % (Auto) 2.2 Baso % (Auto) 0.3 Lymph # (Auto) 1.80 [place] # (Auto) 0.5 Eos # (Auto) 0.1 Baso # (Auto) 0.0 Abs Immat Gran (auto) 0.03 Absolute Neuts (auto) 3.4 Absolute Nucleated RBC 0.000 Nucleated RBC % 0.0 Sodium 133 L Potassium 3.2 L Chloride 98 Carbon Dioxide 31 H Anion Gap 4 BUN 8 Creatinine 0.31 L Estim Creat Clear Calc 118 Estimated GFR > 60 Glucose 197 H POC Capillary Glucose 222 H 256 H Calcium 9.1 Total Bilirubin 0.4 AST 42 H ALT 47 H Alkaline Phosphatase 110 Total Protein 5.8 L Albumin 2.7 L 03/16/25 03/16/25 07:32 11:41 WBC RBC Hgb Hct MCV MCH MCHC RDW Plt Count MPV Immature Gran % (Auto) Neut % (Auto) Lymph % (Auto) [place] % (Auto) Eos % (Auto) Baso % (Auto) Lymph # (Auto) [place] # (Auto) Eos # (Auto) Baso # (Auto) Abs Immat Gran (auto) Absolute Neuts (auto) Absolute Nucleated RBC Nucleated RBC % Sodium Potassium Chloride Carbon Dioxide Anion Gap BUN Creatinine Estim Creat Clear Calc Estimated GFR Glucose POC Capillary Glucose 181 H 238 H Calcium Total Bilirubin AST ALT Alkaline Phosphatase Total Protein Albumin Quality VTE Prophylaxis VTE prophylaxis: pharmacologic ordered
[2025-03-16] MEDS: cefTRIAXone 2 GM in SODIUM CHLORIDE 0.9% IV 100 ML 200 ML IVPB (17:04)
[2025-03-16 20:00] VITALS: PULSE 83; RESP 16; O2SAT 97
[2025-03-16 20:45] VITALS: BP 125/58; PULSE 83; RESP 16; TEMP 36.1; O2SAT 97
[2025-03-16] MEDS: INSULIN GLARGINE (*BKC) 100 UNITS/ML 18 UNITS SUB-Q (21:34)
[2025-03-16] MEDS: ACETAMINOPHEN 325 MG TABLET 650 MG PO (21:56)
[2025-03-17] MEDS: IBUPROFEN 600 MG TABLET PO (00:05)
[2025-03-17 06:00] VITALS: BP 142/67; PULSE 70; RESP 16; TEMP 36.3; O2SAT 100
[2025-03-17 06:15] LABS: Hematocrit 36.1 % (37.0-47.0); Hemoglobin 11.3 g/dL (12.0-15.0); Immature Granulocyte Percent A 0.3 % (0-0.5); Lymphocytes Absolute Auto 1.76 K/mm3 (0.9-3.2); Mean Corpuscular HGB Conc 31.3 g/dl (32-36); Mean Corpuscular Hemoglobin 29.9 pg (26-34); Mean Corpuscular Volume 95.5 fl (80-100); Nucleated Red Blood Cells Absolute Auto 0.000 K/mm3 (0.0-0.012); Nucleated Red Blood Cells Perc 0.0 % (0.0-0.2); Platelet Count Result 355 k/mm3 (150-375); Red Blood Count 3.78 M/mm3 (4.2-5.4); White Blood Count 5.9 K/mm3 (4.5-10.0)
[2025-03-17 06:42] LABS: Alanine Aminotransferase 54 U/L (6-35); Albumin Level 2.8 g/dL (3.5-5.1); Alkaline Phosphatase 116 U/L (38-126); Anion Gap 4 mmol/L (4-12); Aspartate Amino Transferase 44 U/L (14-36); Bilirubin,Total 0.4 mg/dL (0.2-1.3); Blood Urea Nitrogen 11 mg/dL (7-17); Calcium 9.2 mg/dL (8.4-10.2); Carbon Dioxide 29 mmol/L (22-30); Chloride 99 mmol/L (98-107); Estimated CRCL calculation 124 ml/min; Estimated Glomerular Filt Rate > 60; Glucose 192 mg/dL (65-110); Potassium 4.0 mmol/L (3.4-5.0); Sodium 132 mmol/L (137-145); Total Protein 5.9 g/dL (6.3-8.2)
[2025-03-17] MEDS: INSULIN ASPART (*BKC) 100 UNITS/ML SUB-Q ×3 (08:14→12:11)
[2025-03-17] MEDS: GABAPENTIN 100 MG CAPSULE PO ×2 (08:16→12:11)
[2025-03-17] MEDS: TIZANIDINE HCL 2 MG TABLET PO (08:16)
[2025-03-17] MEDS: ENOXAPARIN 40 MG/0.4 ML SYRINGE SUB-Q (08:18)
[2025-03-17] MEDS: ACETAMINOPHEN 325 MG TABLET 650 MG PO (08:22)
[2025-03-17 10:30] VITALS: BMI 27.3
[2025-03-17] MEDS: CEFDINIR 300 MG CAPSULE PO (12:14)
[2025-03-17 14:00] VITALS: BP 135/59; PULSE 88; RESP 16; TEMP 37.1; O2SAT 100
--- NOTE | 2025-03-17 14:01 | P.DS_ITS ---
DS: Admitting Diagnosis Discharge Date 03/17/25 Admitting Diagnosis hyperglycemia DS: Discharge Diagnosis Discharge Diagnosis (1) Severe hyperglycemia due to diabetes mellitus: Code(s): E11.65 - Type 2 diabetes mellitus with hyperglycemia Status: Acute Assessment and Plan: * Upon arrival to ED: Glucose ranges were in 300s-400s, c/o generalized malaise/weakness/polyuria. No sign of DKA but was dehydrated * Hemodynamically stable: Non tachycardic, non-tachypneic, afebrile, non-hypoxic * Was given additional fluids and insulin in ED - subsequent decrease in glucose levels * Admitted for observation, started on moderate SSI w/ additional IVFs + maintenance fluids * Magic under better control. 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 use Diabetes mellitus complication status: with other specified complication Qualified Code(s): E11.69 - Type 2 diabetes mellitus with other specified complication Code(s): E11.9 - Type 2 diabetes mellitus without complications Status: Acute Assessment and Plan: * Hypoglycemia protocol * POC blood glucose ACHS * Correct regimen ordered - moderate dose TIDWM and HS * A1C 12.0% (03/05/2025) (4) Essential (primary) hypertension: Code(s): I10 - Essential (primary) hypertension Status: Acute Assessment and Plan: * Patient's blood pressure was reviewed on 03/13 * Blood pressure remains well controlled. * 134/81 (5) Electrolyte abnormality: Code(s): E87.8 - Other disorders of electrolyte and fluid balance, not elsewhere classified Status: Acute Assessment and Plan: * Upon arrival to ED: Na 127, K 3.5 * Improving * Monitor daily labs (6) Right ankle pain: Code(s): M25.571 - Pain in right ankle and joints of right foot Status: Acute Assessment and Plan: * Endorsing worsening R ankle pain, states it has been going on for several weeks * No known injury or trauma * On exam: Redness, swelling, tenderness, warmness * R ankle XR: There are no fractures or dislocations.Joint space narrowing, subchondral sclerosis, subchondral cyst formation and osteophyte formation, compatible with mild osteoarthritis. Calcaneal enthesopathy. * Rest, Ice, ibuprofen & tylenol prn * Start Rocephin, dc on omnicef and doxy * PTOT DS: Summary Hospital Course Hospital Course: 64-year-old female who with a past medical history of HTN, Vit-D deficiency, obesity, gestational diabetes mellitus, and arthritis who presents to the hospital with elevated blood sugars. She was discharged from the hospital two days ago after an episode of DKA and generalized weakness. 03/14/2025 Patient sitting in bed at time of examination. Glucose has been consistently in the mid 200s throughout the day, will increase glargine from 7 units to 16 units. Patient is also endorsing right ankle pain, no known injury or trauma. States that this has been going on for several weeks. Will obtain x-ray of right ankle, but no overlying skin changes, swelling or deformity. Patient otherwise stable and has no complaints or concerns at this time. Will ensure discharge orders for diabetes is placed. 03/15/25 Patient was seen examined at bedside. Her blood sugars under better control. She is complaining of right ankle pain. X-ray negative for fracture. Patient has difficulty moving right ankle. Exam, right ankle is swollen, red, tender in touch. We will start treatment for possible cellulitis. 03/17/25 Patient was seen and examined she is feeling better. her ankle is better. will discharge on Omnicef and doxy. her blood sugar is under control on 18 units glargine and lispro 5 units before meal. she has all equipment to check blood sugar at home and knowes how to check BS and inject insulin. Status at Discharge Overall status at discharge: patient is progressing back to baseline Time Spent with Patient Time attestation: Total time spent providing and/or coordinating discharge services: Time spent: Greater than 30 minutes Exam Narrative: Patient is comfortable, NAD HEENT: eyes are clear and none icteric LUNGS:CTA HEART: RR S1S2 ABD: BS+, Soft and nontender Lower extremities: no edema, RT ankle lateral aspect erythematous and tender, no red streak improving SKIN: nonjaundiced Neuro: grossly intact. DS: Data Data Completed and Pending Labs on day of discharge: Labs from last 24 hours 03/17/25 03/17/25 03/17/25 11:39 07:44 05:52 WBC 5.9 RBC 3.78 L Hgb 11.3 L Hct 36.1 L MCV 95.5 MCH 29.9 MCHC 31.3 L RDW 12.6 Plt Count 355 MPV 8.8 Immature Gran % (Auto) 0.3 Neut % (Auto) 58.2 Lymph % (Auto) 29.7 [place] % (Auto) 8.9 H Eos % (Auto) 2.4 Baso % (Auto) 0.5 Lymph # (Auto) 1.76 [place] # (Auto) 0.5 Eos # (Auto) 0.1 Baso # (Auto) 0.0 Abs Immat Gran (auto) 0.02 Absolute Neuts (auto) 3.5 Absolute Nucleated RBC 0.000 Nucleated RBC % 0.0 Sodium 132 L Potassium 4.0 Chloride 99 Carbon Dioxide 29 Anion Gap 4 BUN 11 Creatinine 0.29 L Estim Creat Clear Calc 124 Estimated GFR > 60 Glucose 192 H POC Capillary Glucose 235 H 184 H Calcium 9.2 Total Bilirubin 0.4 AST 44 H ALT 54 H Alkaline Phosphatase 116 Total Protein 5.9 L Albumin 2.8 L 03/16/25 03/16/25 20:48 17:02 WBC RBC Hgb Hct MCV MCH MCHC RDW Plt Count MPV Immature Gran % (Auto) Neut % (Auto) Lymph % (Auto) [place] % (Auto) Eos % (Auto) Baso % (Auto) Lymph # (Auto) [place] # (Auto) Eos # (Auto) Baso # (Auto) Abs Immat Gran (auto) Absolute Neuts (auto) Absolute Nucleated RBC Nucleated RBC % Sodium Potassium Chloride Carbon Dioxide Anion Gap BUN Creatinine Estim Creat Clear Calc Estimated GFR Glucose POC Capillary Glucose 240 H 139 H Calcium Total Bilirubin AST ALT Alkaline Phosphatase Total Protein Albumin Discharge Plan Discharge Attending physician on discharge: Delgado Cho Consulting providers: Jatinder Krueger; Delgado Cho Discharging Clinician: Delgado Coh Anticipated Discharge Date/Time: 03/17/25 13:54 Patient Disposition: Home with Home Health Service Activity: as tolerated Diet: heart healthy and diabetic Discharge Instructions: Care Coordination. [facility] to contact patient for RN/PT after discharge. [facility] P#[phone] Faxe #[phone] Discharging nurse will fax discharge instructions to [facility]. check your blood suagr regularly and report to the PCP Patient Instructions: Antibiotic Form Patient Language: Cymro Stand Alone Forms: General Discharge Information Follow-up/Referrals: Gutierrez Chow, [Primary Care Provider, Internal Medicine] - 1 Week Discharge Medications: New insulin aspart U-100 [Novolog U-100 Insulin aspart] 100 unit/mL Solution 5 unit subcut TIDWM Qty: 2 0RF insulin glargine [Lantus U-100 Insulin] 100 unit/mL Solution 18 unit subcut HS Qty: 6 0RF gabapentin 100 mg Capsule 100 mg PO TID Qty: 90 0RF acetaminophen 325 mg Tablet 650 mg PO Q4H PRN (Reason: Headache) Qty: 30 0RF tizanidine 2 mg Tablet 2 mg PO QAM Qty: 14 0RF cefdinir 300 mg Capsule 300 mg PO Q12HR Qty: 10 0RF Discontinued Tylenol pain patch patch Patient Comments: On for 12 hrs, off for 12hrs Date of admission: 03/13/25 04:52 Primary Care Provider: Gutierrez Chow Admitting Provider: Jenny Carbajal Attending physician on admission: Jenny Carbajal Condition: Stable Quality VTE Prophylaxis VTE prophylaxis: pharmacologic ordered
== END 2025-03-17 16:37 | disposition home health service (06) ==
LOC: ANHED 03-13 05:26 → ANH3MEDSUR 03-13 06:59
PROVIDERS: Physician Assistant; Admitting Provider Internal Medicine; Emergency Provider Student in an Organized Health Care Education/Training Program; PCP Internal Medicine; Visit Provider Internal Medicine
DX: E11.65 Type 2 diabetes mellitus with hyperglycemia (principal); R53.1 Weakness; E87.8 Other disorders of electrolyte and fluid balance, not elsewhere classified; M25.571 Pain in right ankle and joints of right foot; I10 Essential (primary) hypertension; E55.9 Vitamin D deficiency, unspecified; Z96.649 Presence of unspecified artificial hip joint
CPT/HCPCS: 36415; 71045; 73620; 80053; 81001; 82010; 82803; 82948; 83735; 84100; 85025; 87086; 96360; 96361; 96365; 96372; 96376; 97110; 97161; 97166; 97530; 97535; 99285; A9270; G0378; J0696; J1650; J1815; J7030

== ENCOUNTER 2025-03-24 07:26 | Outpatient (CLI) | payer BC, SELFPAY ==
--- NOTE | ~2025-03-24 | MR_ITS ---
EXAMINATION: MR ankle RT wo/w con DATE: 03/24/2025 08:37 INDICATION: Right ankle pain and effusion TECHNIQUE: Magnetic resonance imaging (MRI) of the right ankle was performed without and with 12 mL Multihance intravenous contrast. Sequences included axial, sagittal and coronal T1-weighted FSE, axial and coronal T2-weighted FS FSE, sagittal fluid sensitive FSE STIR, axial T1-weighted FS FSE and post contrast axial, sagittal and coronal T1-weighted FS FSE. COMPARISON: None. FINDINGS: Medial ankle ligaments: Deep and superficial deltoid ligaments as well as the spring ligament are normal. Lateral ankle ligaments: The anterior and posterior inferior tibiofibular ligaments are normal. The calcaneofibular and posterior talofibular ligaments are normal. There is attenuation of the anterior talofibular ligament consistent with partial tear, most likely chronic. Tendons: Achilles tendon is normal. There are prominent peroneal tenosynovitis with thickened enhancing tenosynovium and small amount of fluid extending along the tendon sheath. There is mild peroneus longus tendinopathy without discrete tear. There is moderate tendinopathy and mild partial thickness tear located approximately 1 cm caudal to the level of the tip of the lateral malleolus. The tibialis anterior and extensor hallucis longus and extensor digitorum longus tendons are normal. There is additional prominent enhancing tenosynovitis and moderate amount of fluid along the tibialis posterior and flexor digitorum longus tendon sheaths with normal appearance of the tendons. The flexor hallucis longus tendons is normal. Plantar fascia: Moderate chronic plantar enthesopathy with thickening and mild increased signal of the proximal plantar aponeurosis and moderate-sized plantar calcaneal spur without associated marrow edema or enhancement marrow or surrounding soft tissues. There is a small low signal intensity nonenhancing region in the plantar fat pad underlying the spur consistent with secondary plantar fat pad atrophy and plantar fibroma. Bones/other: Bone alignment is normal. No reactive edema, fracture or pathologic marrow replacing process. There is mild osteoarthritis at the at the tarsal metatarsal joints. Fluid: No joint effusions with physiologic amount fluid at the ankle and subtalar joints. There is 6 x 4 x 4 mm ganglion cyst dorsal to the medial side of the talonavicular articulation. Prominent diffuse subcutaneous edema about the mid/distal calf extending about the ankle and throughout the visualized foot. IMPRESSION: 1. Prominent peroneal, tibialis posterior and flexor digitorum longus tenosynovitis which could be inflammatory in etiology due to overuse, related to inflammatory arthritis or gout or other crystal deposition disease. Differential would also include infection in the appropriate clinical setting. The tibialis embedder and flexor digitorum longus tendons are normal. There is mild tendinopathy without tear of the peroneus longus tendon and moderate tendinopathy with small partial-thickness tear of the peroneus brevis tendon. 2. Moderate chronic plantar enthesopathy with underlying mild fat pad atrophy and small plantar fibroma. 3. Mild osteoarthritis at the ankle and a few tarsometatarsal joints with no abnormal ankle joint effusion. Reviewed, dictated and finalized at location A. IMPRESSION: 1. Prominent peroneal, tibialis posterior and flexor digitorum longus tenosynov itis which could be inflammatory in etiology due to overuse, related to inflamm atory arthritis or gout or other crystal deposition disease. Differential would also include infection in the appropriate clinical setting. The tibialis poste r and flexor digitorum longus tendons are normal. There is mild tendinopathy wi thout tear of the peroneus longus tendon and moderate tendinopathy with small p artial-thickness tear of the peroneus brevis tendon. 2. Moderate chronic plantar enthesopathy with underlying mild fat pad atrophy a nd small plantar fibroma. 3. Mild osteoarthritis at the ankle and a few tarsometatarsal joints with no ab normal ankle joint effusion.
== END 2025-03-24 07:27 | disposition home or self-care (01) ==
PROVIDERS: PCP Nurse Practitioner; Visit Provider Nurse Practitioner
DX: M65.871 Other synovitis and tenosynovitis, right ankle and foot (principal); M76.71 Peroneal tendinitis, right leg; M19.071 Primary osteoarthritis, right ankle and foot; M19.09 Primary osteoarthritis, other specified site; M77.51 Other enthesopathy of right foot and ankle; M72.2 Plantar fascial fibromatosis; M25.571 Pain in right ankle and joints of right foot
CPT/HCPCS: 73723; A9577